=== PATIENT | male | born 1960 | race Caucasian/White ===

== ENCOUNTER → 2017-06-06 | Outpatient (CLI) | payer BC ==
[2017-06-06 10:19] LABS: ALT 35 U/L (21-72); AST 22 U/L (17-59); Alkaline Phosphatase 58 U/L (38-126); Anion Gap 9 mmol/L; Blood Urea Nitrogen 13 mg/dL (9-20); Calcium 10.4 mg/dL (8.4-10.2); Carbon Dioxide 25 mmol/L (22-30); Chloride 107 mmol/L (98-107); Glucose 87 mg/dL (74-99); Non-African American GFR(MDRD) >60 (>60 ml/min/1.73 sqM); Potassium 4.7 mmol/L (3.5-5.1); Sodium 141 mmol/L (137-145); Total Bilirubin 0.4 mg/dL (0.2-1.3); Total Protein 6.9 g/dL (6.3-8.2)
== END | disposition home or self-care (01) ==
LOC: LABWHC1 09:31
PROVIDERS: ATTEND Internal Medicine Endocrinology, Diabetes & Metabolism
DX: E21.0 Primary hyperparathyroidism (principal)
CPT/HCPCS: 36415; 80053; 82306; 83970

== ENCOUNTER → 2017-12-27 | Outpatient (CLI) | payer BC ==
[2017-12-27 11:26] LABS: ALT 24 U/L (21-72); AST 19 U/L (17-59); Albumin 4.5 g/dL (3.5-5.0); Alkaline Phosphatase 58 U/L (38-126); Anion Gap 13 mmol/L; Blood Urea Nitrogen 13 mg/dL (9-20); Calcium 10.6 mg/dL (8.4-10.2); Carbon Dioxide 26 mmol/L (22-30); Chloride 106 mmol/L (98-107); Glucose 109 mg/dL (74-99); Potassium 4.7 mmol/L (3.5-5.1); Sodium 145 mmol/L (137-145); Total Bilirubin 0.5 mg/dL (0.2-1.3); Total Protein 7.4 g/dL (6.3-8.2)
[2017-12-27 16:42] LABS: Vitamin D 25 Hydroxy 28.9 ng/mL (30.0-100.0)
[2017-12-27 18:16] LABS: Parathyroid Hormone Intact 120.1 pg/mL (14.0-72.0)
== END | disposition home or self-care (01) ==
LOC: LABWHC1 10:12
PROVIDERS: ATTEND Internal Medicine Endocrinology, Diabetes & Metabolism
DX: E21.0 Primary hyperparathyroidism (principal)
CPT/HCPCS: 36415; 80053; 82306; 83970

== ENCOUNTER → 2018-01-30 | Outpatient (CLI) | payer BC ==
--- NOTE | 2018-01-30 07:52 | BD ---
EXAMINATION TYPE: MG DEXA appendicular skeleton. DATE OF EXAM: 01/30/2018 COMPARISON: NONE CLINICAL HISTORY: Osteoporosis screening. Height: 5 FT 8 IN Weight: 196 FRAX RISK QUESTIONS: Alcohol (3 or more units per day): NO Family History (Parent hip fracture): NO Glucocorticoids (More than 3mos): NO (Ex: prednisone, prednisolone, methylprednisolone, dexamethasone, and hydrocortisone). History of Fracture in Adulthood: NO Secondary Osteoporosis: 1. Type 1 Diabetes: NO 2. Hyperthyroidism: NO 3. Menopause before 45: NA 4. Malnutrition: NO 5. Chronic liver disease: NO Rheumatoid Arthritis: NO Current Tobacco Use: NO RISK FACTORS HISTORY OF: Active: YES Lost more than 2 inches in height since high school: YES Hyperparathyroidism: YES MEDICATIONS: LOSARTIN, BUSPIRONE, CITALOPRAM, AMITRIPTYLINE, TEMAZEPAM, COUMDIN, LIPITOR, COLCHICINE Additional History: EXAM MEASUREMENTS: Bone mineral densitometry was performed using the [employer] System. Bone mineral density as measured about the Lumbar spine is: ----- L1-L4(G/cm2): 1.380 T Score Values are as follows: ----- L2: 1.7 ----- L3: 1.7 ----- L4: 1.5 ----- L1-L4: 1.7 BASELINE Bone mineral density about the R hip (g/cm2): 0.879 Bone mineral density about the L hip (g/cm2): 0.976 T Score values are as follows: -----R Neck: -1.1 -----L Neck: -0.4 -----R Total: 0.4 -----L Total: 0.4 BASELINE IMPRESSION: Osteopenia (T Score between -2.5 and -1) with regards to the right femoral neck. There is slightly increased risk of fracture and the patient may be considered for treatment. Re-Screen 2-5 years. NOTE: T-SCORE=SD OF THE YOUNG ADULT MEAN.
== END | disposition home or self-care (01) ==
LOC: RADBDWWP 07:08
PROVIDERS: ATTEND Surgery
DX: M85.851 Other specified disorders of bone density and structure, right thigh (principal); E21.0 Primary hyperparathyroidism
CPT/HCPCS: 77081

== ENCOUNTER → 2020-10-04 | Outpatient (CLI) | payer BC ==
--- NOTE | 2020-10-04 09:20 | US ---
EXAMINATION TYPE: US kidneys/renal and bladder DATE OF EXAM: 10/04/2020 COMPARISON: NONE CLINICAL HISTORY: R31.0 GROSS HEMATURIA. h/o renal stones, gross hematuria, no pain now EXAM MEASUREMENTS: Right Kidney: 9.7 x 5.1 x 5.6cm Left Kidney: 10.3 x 4.2 x 5.6cm Right Kidney: multiple shadowing stones seen, largest was 1.2cm within mid and inferior pole Left Kidney: multiple shadowing stones seen, largest = 1.0cm lower pole Bladder: not distended IMPRESSION: 1. Bilateral nonobstructing renal stones
== END | disposition home or self-care (01) ==
LOC: RADUSWWP 08:51
PROVIDERS: ATTEND Internal Medicine
DX: N20.0 Calculus of kidney (principal)
CPT/HCPCS: 76770

== ENCOUNTER → 2020-11-02 | Outpatient (CLI) | payer BC ==
--- NOTE | 2020-11-02 08:56 | CT ---
EXAMINATION TYPE: CT abdomen pelvis wo con DATE OF EXAM: 11/02/2020 HISTORY: Renal stones CT DLP: 906 mGycm. Automated Exposure Control for Dose Reduction was Utilized. TECHNIQUE: CT scan of the abdomen and pelvis is performed without oral or IV contrast. COMPARISON: CT abdomen and pelvis November 01, 2010. FINDINGS: Within the limitations of a non-contrast study, the following observations are made. LUNG BASES: There is 2-3 mm right basilar nodule axial image 7. LIVER/GB: No significant abnormality is appreciated. PANCREAS: No significant abnormality is seen. SPLEEN: No significant abnormality is seen. ADRENALS: No significant abnormality is seen. KIDNEYS: Bilateral small renal calculi are present, at least 10-20 scattered calculi of varying sizes and shapes throughout both kidneys redemonstrated. No hydronephrosis or obstructing ureteral calculi bilaterally BOWEL: Normal-appearing appendix from cecum. No suspicious small or large bowel dilatation. GENITAL ORGANS: Central calcifications in normal sized prostate. LYMPH NODES: No greater than 1cm abdominal or pelvic lymph nodes are appreciated. OSSEOUS STRUCTURES: Moderate narrowing and spurring in both hips. Grade 1 retrolisthesis L1 on L2 and L2 on L3. OTHER: Mild calcified plaque aorta extends into branch vessels. IMPRESSION: Persistent bilateral nonobstructing renal calculi. No hydronephrosis or obstructing urete ral calculi bilaterally on current study.
== END | disposition home or self-care (01) ==
LOC: RADCTMAIN 07:47
PROVIDERS: ATTEND Urology
DX: N20.0 Calculus of kidney (principal)
CPT/HCPCS: 74176

== ENCOUNTER → 2022-10-31 | Outpatient (CLI) | payer BC ==
--- NOTE | 2022-10-31 10:46 | XR ---
EXAMINATION TYPE: XR KUB DATE OF EXAM: 10/31/2022 COMPARISON: Abdominal radiograph 07/06/2012, CT abdomen and pelvis 11/02/2020 HISTORY: Calculus of kidney TECHNIQUE: Supine view of the abdomen was obtained with 2 radiographs. FINDINGS: Small bowel demonstrates no evidence for dilatation or air fluid levels. Gas and fecal material is seen in non-distended colon. No convincing evidence for pneumoperitoneum. Bilateral renal calculi identified with approximately 5-8 within each kidney. The largest on the left measures up to 9 mm and the largest on the right measures up to 7 mm. No definitive ureteral calculi . No pelvic calcifications. The lung bases are clear. The osseous structures are intact. IMPRESSION: Bilateral renal calculi.
== END | disposition home or self-care (01) ==
LOC: RADXRMAIN 10:15
PROVIDERS: ATTEND Urology
DX: N20.0 Calculus of kidney (principal)
CPT/HCPCS: 74018

== ENCOUNTER 2023-08-30 08:57 | Emergency (ER) | payer BC ==
[2023-08-30 09:43] VITALS: RESP 20; TEMP 97.4
--- NOTE | 2023-08-30 11:37 | ED ---
General Adult HPI - General Source: patient Mode of arrival: ambulatory Limitations: no limitations <Stephen Villaseñor - Last Filed: 08/30/23 11:36> <eJan Young - Last Filed: 08/30/23 15:25> - General Chief complaint: Psychiatric Symptoms Stated complaint: Mental Health Time Seen by Provider: 08/30/23 11:17 - History of Present Illness Initial comments: Dictation was produced using [employer] dictation software. please excuse any grammatical, word or spelling errors. Chief Complaint: 63-year-old male presents with anxiety depression History of Present Illness: [id number] male for the last several weeks she's been dealing with feelings of not going on like this. Denies any suicidal plan. Significant the bedside was concerned because he made a statement that sounded depressing. He did not make a suicidal comment. She said that he does not want go on like this anymore. She brought patient to the ER for suicidal ideation. Patient has any suicidal plan. Denies any homicidal ideation. No visual auditory hallucinations. He has been seeing psychiatrists and therapist outp atient. Patient has no acute medical complaints The ROS documented in this emergency department record has been reviewed and confirmed by me. Those systems with pertinent positive or negative responses have been documented in the HPI. All other systems are other negative and/or noncontributory. (Stephen Villaseñor) - Related Data Home Medications Medication Instructions Recorded Confirmed Atorvastatin [Lipitor] 20 mg PO DAILY 12/10/14 12/13/14 Citalopram Hydrobromide [CeleXA] 20 mg PO 1800 12/10/14 12/13/14 Losartan [Cozaar] 50 mg PO QAM 12/10/14 12/13/14 Temazepam [Restoril] 30 mg PO HS 12/10/14 12/13/14 Warfarin [Coumadin] 10 mg PO DAILY 12/10/14 12/13/14 busPIRone HCl [Buspar] 15 mg PO BID 12/10/14 12/13/14 Previous Rx's Medication Instructions Recorded LORazepam [Ativan] 1 mg PO BID 3 Days #6 tab 08/30/23 Allergies Allergy/AdvReac Type Severity Reaction Status Date / Time No Known Allergies Allergy Verified 08/30/23 09:21 Review of Systems ROS Other: All systems not noted in ROS Statement are negative. <Stephen Villaseñor - Last Filed: 08/30/23 11:36> ROS Other: All systems not noted in ROS Statement are negative. <Jean Young Toni - Last Filed: 08/30/23 15:25> ROS Statement: Those systems with pertinent positive or pertinent negative responses have been documented in the HPI. Past Medical History Past Medical History: Deep Vein Thrombosis (DVT), Hypertension, Pulmonary Embolus (PE) Additional Past Medical History / Comment(s): dvt rt thigh & PE x 2-2012, kidney stones,current abd pain and diarrhea History of Any Multi-Drug Resistant Organisms: None Reported Past Surgical History: Hernia Repair Additional Past Surgical History / Comment(s): varicose vein stripping,double hernia repair Aug 2014 Past Anesthesia/Blood Transfusion Reactions: No Reported Reaction Past Psychological History: Anxiety Smoking Status: Never smoker Past Alcohol Use History: Occasional Past Drug Use History: None Reported - Past Family History Father Family Medical History: Cancer, Deep Vein Thrombosis (DVT) Additional Family Medical History / Comment(s): prostate Mother Family Medical History: Cancer Additional Family Medical History / Comment(s): breast Sister(s) Family Medical History: Cancer Additional Family Medical History / Comment(s): breast <Stephen Villaseñor - Last Filed: 08/30/23 11:36> General Exam Limitations: no limitations <Stephen Villaseñor - Last Filed: 08/30/23 11:36> - General Exam Comments Initial Comments: PHYSICAL EXAM: General Impression: Alert and oriented x3, not in acute distress HEENT: Normocephalic atraumatic, extra-ocular movements intact, pupils equal and reactive to light bilaterally, mucous membranes moist. Cardiovascular: Heart regular rate and rhythm Chest: Able to complete full sentences, no retractions, no tachypnea Abdomen: abdomen soft, non-tender, non-distended, no organomegaly Musculoskeletal: Pulses present and equal in all extremities, no peripheral edema Motor: no focal deficits noted Neurological: CN II-XII grossly intact, no focal motor or sensory deficits noted Skin: Intact with no visualized rashes Psych: Normal affect and mood (Stephen Villaseñor) Course Vital Signs 08/30/23 09:15 Temperature 97.4 F L Pulse Rate 110 H Respiratory 20 Rate Blood Pressure 146/105 O2 Sat by Pulse 98 Oximetry Medical Decision Making <CharleenStephen D - Last Filed: 08/30/23 11:36> <Jean Young Toni - Last Filed: 08/30/23 15:25> - Medical Decision Making Was pt. sent in by a medical professional or institution (, PA, [employer], urgent care, hospital, or fdc...) When possible be specific @ -No Did you speak to anyone other than the patient for history (EMS, parent, family, police, friend...)? What history was obtained from this source @ -No Did you review nursing and triage notes (agree or disagree)? Why? @ -I reviewed and agree with nursing and triage notes Were old charts reviewed (outside hosp., previous admission, EMS record, old EKG, old radiological studies, urgent care reports/EKG's, fdc records)? Report findings @ -No old charts were reviewed Differential Diagnosis (chest pain, altered mental status, abdominal pain women, abdominal pain men, vaginal bleeding, musculoskeletal, weakness, fever, dyspnea, syncope, headache, dizziness, GI bleed, back pain, seizure, CVA, palpatations, mental health)? @ -Differential Mental Health: Depression, anxiety, bipolar, psychosis, schizophrenia, borderline personality, situational depression, adjustment disorder, behavioral disorder, brain tumor, malingering, substance abuse, encephalopathy, medication reaction, dementia, hypothyroidism, degenerative neurologic disorder, lupus.... This is not meant to be all-inclusive list EKG interpreted by me (3pts min.). @ -None done X-rays interpreted by me (1pt min.). @ -None done CT interpreted by me (1pt min.). @ -None done U/S interpreted by me (1pt. min.). @ -None done What testing was considered but not performed or refused? (CT, X-rays, U/S, labs)? Why? @ -None What meds were considered but not given or refused? Why? @ -None Did you discuss the management of the patient with other professionals (professionals i.e. , PA, [employer], lab, RT, psych nurse, 7th grade social studies teacher, research contracts supervisor, teacher, welfare officer, behavioral health case manager)? Give summary @ -No Was smoking cessation discussed for >3mins.? @ -No Was critical care preformed (if so, how long)? @ -No Were there social determinants of health that impacted care today? How? (Homelessness, low income, unemployed, alcoholism, drug addiction, transportation, low edu. Level, literacy, decrease access to med. care, alf, rehab)? @ -No Was there de-escalation of care discussed even if they declined (Discuss DNR or withdrawal of care, Hospice)? DNR status @ -No What co-morbidities impacted this encounter? (DM, HTN, Smoking, COPD, CAD, Cancer, CVA, ARF, Chemo, Hep., AIDS, mental health diagnosis, sleep apnea, morbid obesity)? @ -None Was patient admitted / discharged? Hospital course, mention meds given and route, prescriptions, significant lab abnormalities, going to OR and other pertinent info. @ -63-year-old male presents emergency department for mental health evaluation. Vital signs stable. Patient is well-appearing at bedside. No physical complaints. Patient medically cleared for EPS evaluation. Undiagnosed new problem with uncertain prognosis? @ -No Drug Therapy requiring intensive monitoring for toxicity (Heparin, Nitro, Insulin, Cardizem)? @ -No Were any procedures done? @ -No Diagnosis/symptom? Acute, or Chronic, or Acute on Chronic? Uncomplicated (without systemic symptoms) or Complicated (systemic symptoms)? @ -Depression Side effects of treatment? @ -No Exacerbation, Progression, or Severe Exacerbation? @ -No Poses a threat to life or bodily function? How? (Chest pain, [place], [place], pneumonia, PE, COPD, DKA, ARF, appy, cholecystitis, CVA, Diverticulitis, Homicidal, Suicidal, threat to staff... and all critical care pts) @ -yes (Stephen Villaseñor) Patient had been medically cleared and was evaluated by EPS. [place] to be safe for discharge with diagnosis of anxiety and panic attack. He has good outpatient follow-up and has signed a safety plan. (Jean Young) Disposition <Stephen Villaseñor - Last Filed: 08/30/23 11:36> Is patient prescribed a controlled substance at d/c from ED?: No Time of Disposition: 15:25 <Jean Young - Last Filed: 08/30/23 15:25> Clinical Impression: Acute anxiety Disposition: HOME SELF-CARE Condition: Fair Instructions (If sedation given, give patient instructions): Anxiety (ED) Additional Instructions: Please follow up with community mental health. Prescriptions: LORazepam [Ativan] 1 mg PO BID 3 Days #6 tab Referrals: River Richardson MD [Primary Care Provider] - 1-2 days
[2023-08-30 16:11] VITALS: BP 160/114; PULSE 104
== END 2023-08-30 15:51 | disposition home or self-care (01) ==
LOC: EC 08:57
DX: F41.9 Anxiety disorder, unspecified (principal); I10 Essential (primary) hypertension; Z79.899 Other long term (current) drug therapy; Z86.711 Personal history of pulmonary embolism; Z79.01 Long term (current) use of anticoagulants
CPT/HCPCS: 82075; 99285

== ENCOUNTER 2023-10-11 15:33 | Emergency (ER) | payer BC ==
--- NOTE | 2023-10-11 16:22 | ED ---
General Adult HPI - General Source: patient, RN notes reviewed <Maureen Baltazar - Last Filed: 10/11/23 16:18> - General Source: patient, RN notes reviewed, old records reviewed <Alexis Horne - Last Filed: 10/11/23 22:51> <Joel Church - Last Filed: 10/12/23 12:48> <Jean Sifuentes - Last Filed: 10/12/23 22:15> - General Stated complaint: Suicidal Time Seen by Provider: 10/11/23 16:19 - History of Present Illness Initial comments: 63 year old male presents to the emergency department for evaluation of suicidal ideation for the past 3-4 days. Patient does have a history of mental health issues and is currently taking his medication. He states that he has had overwhelming feelings of wanting to hurt others and himself over the past few days with no plan. (Maureen Baltazar) Patient is a 63-year-old male who presents emergency department for psychiatric evaluation. Is complaining of increased anxiety, suicidal ideations. Has a nonspecific plan of overdose. No history of attempts. Occasional thoughts about hurting others. Denies any hallucinations. 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 No other acute complaint at this time. Presents for further evaluation at this time. Patient originally evaluated quickly no. I evaluated the patient when he was placed in a room. (Alexis Horne) - Related Data Home Medications Medication Instructions Recorded Confirmed Losartan [Cozaar] 50 mg PO BID 12/10/14 10/11/23 busPIRone HCl [Buspar] 15 mg PO BID 12/10/14 10/11/23 Acetaminophen Tab [Tylenol] 650 mg PO Q4-6H PRN 10/11/23 10/11/23 Cephalexin [Keflex] 500 mg PO QID 10/11/23 10/11/23 DULoxetine HCL [Cymbalta] 60 mg PO DAILY 10/11/23 10/11/23 LORazepam 0.5 mg PO DAILY PRN 10/11/23 10/11/23 Pravastatin Sodium [Pravachol] 80 mg PO DAILY 10/11/23 10/11/23 Warfarin [Coumadin] 5 mg PO SUMOTUTHSA@1800 10/11/23 10/11/23 Warfarin [Coumadin] 10 mg PO WEFR@1800 10/11/23 10/11/23 traZODone HCL [Desyrel] 100 mg PO HS 10/11/23 10/11/23 Allergies Allergy/AdvReac Type Severity Reaction Status Date / Time No Known Allergies Allergy Verified 10/11/23 22:15 Review of Systems ROS Other: All systems not noted in ROS Statement are negative. <Maureen Baltazar - Last Filed: 10/11/23 16:18> ROS Other: All systems not noted in ROS Statement are negative. <Alexis Horne - Last Filed: 10/11/23 22:51> ROS Other: All systems not noted in ROS Statement are negative. <Joel Church - Last Filed: 10/12/23 12:48> ROS Other: All systems not noted in ROS Statement are negative. <Jean Sifuentes - Last Filed: 10/12/23 22:15> ROS Statement: Those systems with pertinent positive or pertinent negative responses have been documented in the HPI. Review of Systems: CONST: Denies fever EYES: Denies blurry vision ENT: Denies nasal congestion C/V: Denies Chest pain RESP: Denies shortness of breath GI: Denies abdominal pain : Denies dysuria SKIN: Denies rash. MSK: Denies joint pain. NEURO: Denies headache PSYCH: Endorses suicidal and homicidal ideations. Denies plans or attempts. Denies hallucinations. (Alexis Horne) Past Medical History Past Medical History: Deep Vein Thrombosis (DVT), Hypertension, Pulmonary Embolus (PE) Additional Past Medical History / Comment(s): dvt rt thigh & PE x 2-2012, kidney stones,current abd pain and diarrhea History of Any Multi-Drug Resistant Organisms: None Reported Past Surgical History: Hernia Repair Additional Past Surgical History / Comment(s): varicose vein stripping,double hernia repair Aug 2014 Past Anesthesia/Blood Transfusion Reactions: No Reported Reaction Past Psychological History: Anxiety Smoking Status: Never smoker Past Alcohol Use History: Occasional Past Drug Use History: None Reported - Past Family History Father Family Medical History: Cancer, Deep Vein Thrombosis (DVT) Additional Family Medical History / Comment(s): prostate Mother Family Medical History: Cancer Additional Family Medical History / Comment(s): breast Sister(s) Family Medical History: Cancer Additional Family Medical History / Comment(s): breast <Maureen Baltazar - Last Filed: 10/11/23 16:18> General Exam <Maureen Baltazar - Last Filed: 10/11/23 16:18> <Alexis Horne - Last Filed: 10/11/23 22:51> - General Exam Comments Initial Comments: Visual Physical Exam Vital signs reviewed General: Well-appearing, nontoxic, no acute distress. Head: Normocephalic, atraumatic Eyes: PERRLA, EOMI ENT: Airway patent Chest: Nonlabored breathing Skin: No visual rash, normal skin tone Neuro: Alert and oriented 3 Musculoskeletal: No gross abnormalities (Maureen Baltazar) General: Appears in no acute distress. HEAD: Normal with no signs of head trauma. EYES: PERRLA, EOMI, conjunctiva normal, no discharge. ENT: Hearing grossly intact, normal oropharynx. RESPIRATORY: Clear breath sounds bilaterally. No wheezes, rales, or rhonchi. C/V: Regular rate and rhythm. S1 and S2 auscultated, peripheral pulses 2+ and intact throughout ABD: Abd is soft, nontender, nondistended EXT: Normal range of motion, no obvious deformity SKIN: No rashes or lesions observed on exposed skin. NEURO: Alert and oriented 4. (Alexis Horne) Course <Jean Sifuentes - Last Filed: 10/12/23 22:15> Vital Signs 10/11/23 10/12/23 10/12/23 16:39 10:35 18:22 Temperature 97.7 F 97.8 F Pulse Rate 107 H 99 95 Respiratory 18 18 18 Rate Blood Pressure 191/120 163/88 137/94 O2 Sat by Pulse 96 95 98 Oximetry 10/12/23 20:23 Temperature Pulse Rate Respiratory Rate Blood Pressure 170/131 O2 Sat by Pulse Oximetry - Reevaluation(s) Reevaluation #1: 10/12/23 20:27 At the time of transfer to EMS for his transfer to [facility] for inpatient treatment for depression and suicidal ideation the patient was noted have a markedly elevated blood pressure per paramedics. Point 80/120 daily complain of a frontal headache that he's got a chronic history of headaches and upon reexamination by me states is 3/10 in severity he's gotten Tylenol for twice so far since his stay here. He is on losartan for blood pressure control his p.m. dose of 50 mg is doing 9 PM tonight. Patient denies any other symptoms at this time no blurry vision no nausea no vomiting shortness of breath chest pain numbness tingling to his extremities no loss of function. The blood pressure obtained by EMS personnel of 180/120 was a manual blood pressure. Examination patient is awake alert oriented 4 HEENT exam and normocephalic atraumatic PERRL EOMI Clear Oropharynx Is Clear with Moist Mucosa. Neck supple no stridor or bruits chest lungs clear to auscultation heart regular with no murmurs abdomen soft nontender no guarding rebound masses or bruits extremities bilaterally present and symmetric normal neurovascular examination. At this time the plan is to give the patient is p.m. dose of losartan 50 mg oral hydration and reassess. (Jean Sifuentes) Reevaluation #2: 10/12/23 22:14 Patient still demonstrated elevated blood pressure that was higher than acceptable for transfer to patient at this time will be held overnight and transferred in the a.m. to [facility] for inpatient treatment of depression and suicidal ideation. (Jean Sifuentes) Medical Decision Making <Maureen Baltazar - Last Filed: 10/11/23 16:18> - Lab Data Result diagrams: 10/11/23 22:06 10/11/23 22:06 - EKG Data -: EKG Interpreted by Me <Alexis Horne - Last Filed: 10/11/23 22:51> - Lab Data Result diagrams: 10/11/23 22:06 10/11/23 22:06 <Joel Church - Last Filed: 10/12/23 12:48> - Lab Data Result diagrams: 10/11/23 22:06 10/11/23 22:06 <Jean Sifuentes - Last Filed: 10/12/23 22:15> - Medical Decision Making Quick note preformed by Maureen Baltazar PA-C (Maureen Baltazar) Was pt. sent in by a medical professional or institution (DARIEL Sierra, [employer], urgent care, hospital, or jail...) When possible be specific @ -No Did you speak to anyone other than the patient for history (EMS, parent, family, police, friend...)? What history was obtained from this source @ -No Did you review nursing and triage notes (agree or disagree)? Why? @ -I reviewed and agree with nursing and triage notes Were old charts reviewed (outside hosp., previous admission, EMS record, old EKG, old radiological studies, urgent care reports/EKG's, jail records)? Report findings @ -Old charts reviewed Differential Diagnosis (chest pain, altered mental status, abdominal pain women, abdominal pain men, vaginal bleeding, weakness, fever, dyspnea, syncope, headache, dizziness, GI bleed, back pain, seizure, CVA, palpatations, mental health, musculoskeletal)? @ -Differential Mental Health Depression, anxiety, bipolar, psychosis, schizophrenia, borderline personality, situational depression, adjustment disorder, behavioral disorder, brain tumor, malingering, substance abuse, encephalopathy, medication reaction, dementia, hypothyroidism, degenerative neurologic disorder, lupus.... This is not meant to be all-inclusive list EKG interpreted by me (3pts min.). @ -As above X-rays interpreted by me (1pt min.). @ -None done CT interpreted by me (1pt min.). @ -None done U/S interpreted by me (1pt. min.). @ -None done What testing was considered but not performed or refused? (CT, X-rays, U/S, labs)? Why? @ -None What meds were considered but not given or refused? Why? @ -None Did you discuss the management of the patient with other professionals (rocio reece i.e. , PA, [employer], lab, RT, psych nurse, health care social worker, nurse college, teacher, aviation ordnance officer, manager of case)? Give summary @ -EPS notified consult. Was smoking cessation discussed for >3mins.? @ -No Was critical care preformed (if so, how long)? @ -No Were there social determinants of health that impacted care today? How? (Homelessness, low income, unemployed, alcoholism, drug addiction, transportation, low edu. Level, literacy, decrease access to med. care, penitentiary, rehab)? @ -No Was there de-escalation of care discussed even if they declined (Discuss DNR or withdrawal of care, Hospice)? DNR status @ -No What co-morbidities impacted this encounter? (DM, HTN, Smoking, COPD, CAD, Cancer, CVA, ARF, Chemo, Hep., AIDS, mental health diagnosis, sleep apnea, morbid obesity)? @ -None Was patient admitted / discharged? Hospital course, mention meds given and route, prescriptions, significant lab abnormalities, going to OR and other pertinent info. @ -Based on the patient's presentation and physical exam, I do believe. Her psychiatric evaluation. He was placed in green scrubs. Sitter was ordered. Suicide precautions ordered. BAT is 0. UDS is negative. I did recommend we obtain basic labs as he is older and is on Coumadin he was in agreement. Vital signs within except for limits. Screening EKG shows no signs of acute ischemia. Labs remarkable for subtherapeutic INR of 1.4 and pharmacy was consulted to manage his Coumadin. At this time patient is medically cleared for evaluation by psychiatry. I updated the patient. He was in agreement this plan. EPS notified by us for evaluation. Disposition pending psychiatric evaluation. Undiagnosed new problem with uncertain prognosis? @ -No Drug Therapy requiring intensive monitoring for toxicity (Heparin, Nitro, Insulin, Cardizem)? @ -No Were any procedures done? @ -No Diagnosis/symptom? @ -Subtherapeutic INR Acute, or Chronic, or Acute on Chronic? @ -Acute Uncomplicated (without systemic symptoms) or Complicated (systemic symptoms)? @ -uncomplicated Side effects of treatment? @ -No Exacerbation, Progression, or Severe Exacerbation? @ -No Poses a threat to life or bodily function? How? (Chest pain, [place], [place], pneumonia, PE, COPD, DKA, ARF, appy, cholecystitis, CVA, Diverticulitis, Homicidal, Suicidal, threat to staff... and all critical care pts) @ -Unlikely Diagnosis/symptom? @ -Encounter for psychiatric evaluation Acute, or Chronic, or Acute on Chronic? @ -Acute Uncomplicated (without systemic symptoms) or Complicated (systemic symptoms)? @ -Uncomplicated Side effects of treatment? @ -none Exacerbation, Progression, or Severe Exacerbation] @ -no Poses a threat to life or bodily function? @ -Possibly (Alexis Horne) I reevaluated the patient after the patient was signed out to me by Dr. Diaz at 7 AM. Patient was still depressed and had suicidal thoughts at this point in time EPS evaluated the patient and determined the patient needed to be admitted. I filled out a clinical certification and patient will be transferred to a [facility] facility. (Joel Church) - Lab Data Lab Results 10/11/23 10/11/23 10/11/23 Range/Units 16:45 22:06 22:06 WBC 5.8 (3.8-10.6) k/uL RBC 4.12 L (4.30-5.90) m/uL Hgb 13.7 (13.0-17.5) gm/dL Hct 39.2 (39.0-53.0) % MCV 95.3 (80.0-100.0) fL MCH 33.2 (25.0-35.0) pg MCHC 34.8 (31.0-37.0) g/dL RDW 12.9 (11.5-15.5) % Plt Count 230 (150-450) k/uL MPV 7.6 Neutrophils % 71 % Lymphocytes % 20 % Monocytes % 6 % Eosinophils % 1 % Basophils % 1 % Neutrophils # 4.1 (1.3-7.7) k/uL Lymphocytes # 1.1 (1.0-4.8) k/uL Monocytes # 0.3 (0-1.0) k/uL Eosinophils # 0.1 (0-0.7) k/uL Basophils # 0.0 (0-0.2) k/uL PT 14.8 H (10.0-12.5) sec INR 1.4 H (<1.2) Sodium (137-145) mmol/L Potassium (3.5-5.1) mmol/L Chloride (98-107) mmol/L Carbon Dioxide (22-30) mmol/L Anion Gap mmol/L BUN (9-20) mg/dL Creatinine (0.66-1.25) mg/dL Est GFR (CKD-EPI)AfAm (>60 ml/min/1.73 sqM) Est GFR (CKD-EPI)NonAf (>60 ml/min/1.73 sqM) Glucose (74-99) mg/dL Calcium (8.4-10.2) mg/dL Total Bilirubin (0.2-1.3) mg/dL AST (17-59) U/L ALT (4-49) U/L Alkaline Phosphatase (38-126) U/L Total Protein (6.3-8.2) g/dL Albumin (3.5-5.0) g/dL Urine Opiates Screen Not Detected (NotDetected) Ur Oxycodone Screen Not Detected (NotDetected) Urine Methadone Screen Not Detected (NotDetected) Ur Barbiturates Screen Not Detected (NotDetected) U Tricyclic Antidepress Not Detected (NotDetected) Ur Phencyclidine Scrn Not Detected (NotDetected) Ur Amphetamines Screen Not Detected (NotDetected) U Methamphetamines Scrn Not Detected (NotDetected) U Benzodiazepines Scrn Not Detected (NotDetected) Urine Cocaine Screen Not Detected (NotDetected) U Marijuana (THC) Screen Not Detected (NotDetected) SARS-CoV-2 (PCR) (Not Detectd) 10/11/23 10/12/23 10/12/23 Range/Units 22:06 11:53 13:00 WBC (3.8-10.6) k/uL RBC (4.30-5.90) m/uL Hgb (13.0-17.5) gm/dL Hct (39.0-53.0) % MCV (80.0-100.0) fL MCH (25.0-35.0) pg MCHC (31.0-37.0) g/dL RDW (11.5-15.5) % Plt Count (150-450) k/uL MPV Neutrophils % % Lymphocytes % % Monocytes % % Eosinophils % % Basophils % % Neutrophils # (1.3-7.7) k/uL Lymphocytes # (1.0-4.8) k/uL Monocytes # (0-1.0) k/uL Eosinophils # (0-0.7) k/uL Basophils # (0-0.2) k/uL PT 14.5 H (10.0-12.5) sec INR 1.4 H (<1.2) Sodium 138 (137-145) mmol/L Potassium 3.9 (3.5-5.1) mmol/L Chloride 105 (98-107) mmol/L Carbon Dioxide 20 L (22-30) mmol/L Anion Gap 13 mmol/L BUN 13 (9-20) mg/dL Creatinine 0.92 (0.66-1.25) mg/dL Est GFR (CKD-EPI)AfAm >90 (>60 ml/min/1.73 sqM) Est GFR (CKD-EPI)NonAf 90 (>60 ml/min/1.73 sqM) Glucose 96 (74-99) mg/dL Calcium 9.1 (8.4-10.2) mg/dL Total Bilirubin 0.8 (0.2-1.3) mg/dL AST 24 (17-59) U/L ALT 16 (4-49) U/L Alkaline Phosphatase 55 (38-126) U/L Total Protein 7.3 (6.3-8.2) g/dL Albumin 4.7 (3.5-5.0) g/dL Urine Opiates Screen (NotDetected) Ur Oxycodone Screen (NotDetected) Urine Methadone Screen (NotDetected) Ur Barbiturates Screen (NotDetected) U Tricyclic Antidepress (NotDetected) Ur Phencyclidine Scrn (NotDetected) Ur Amphetamines Screen (NotDetected) U Methamphetamines Scrn (NotDetected) U Benzodiazepines Scrn (NotDetected) Urine Cocaine Screen (NotDetected) U Marijuana (THC) Screen (NotDetected) SARS-CoV-2 (PCR) Not Detected (Not Detectd) - EKG Data EKG Comments: 12-lead Electrocardiogram Interpretation Note EKG was reviewed and interpreted by myself. 12-lead ECG performed at 2206 is interpreted by me as revealing normal sinus rhythm at a rate of 98 beats per m inute. [place] is normal. [place] interval is 150 ms, QRS duration is 85 ms, QTc is 398 ms.. There were no ST or T wave abnormalities to suggest myocardial ischemia or injury. R wave progression across the precordium was satisfactory. By my interpretation this EKG is non-diagnostic for acute ischemia. (Alexis Horne) Disposition <Maureen Baltazar - Last Filed: 10/11/23 16:18> <Alexis Horne - Last Filed: 10/11/23 22:51> Time of Disposition: 12:49 <Joel Church - Last Filed: 10/12/23 12:48> <Jean Sifuentes - Last Filed: 10/12/23 22:15> Clinical Impression: Subtherapeutic international normalized ratio (INR), Encounter for psychiatric assessment, Depression, Suicidal ideation Referrals: Grover Gomez MD [Primary Care Provider] - 1-2 days
[2023-10-11 17:04] VITALS: RESP 18
[2023-10-11 17:30] LABS: Amphetamine Screen,Urine Not Detected (NotDetected); Barbiturate Screen,Urine Not Detected (NotDetected); Benzodiazepines Screen,Urine Not Detected (NotDetected); Cocaine Screen,Urine Not Detected (NotDetected); Methadone Screen, Urine Not Detected (NotDetected); Opiate Screen,Urine Not Detected (NotDetected); Oxycodone Screen, Urine Not Detected (NotDetected); Phencyclidine Screen,Urine Not Detected (NotDetected); Tricyclic Antidepressant,Urine Not Detected (NotDetected); Urn Cannabinoid Scrn Not Detected (NotDetected)
[2023-10-11] MEDS ORDERED: LORazepam 0.5 MG TAB PO STA (21:53)
[2023-10-11 22:19] LABS: Basophils % (A) 1 %; Eosinophils # (A) 0.1 k/uL (0-0.7); Eosinophils % (A) 1 %; HCT 39.2 % (39.0-53.0); HGB 13.7 gm/dL (13.0-17.5); Lymphocytes # (A) 1.1 k/uL (1.0-4.8); Lymphocytes % (A) 20 %; MCH 33.2 pg (25.0-35.0); MCHC 34.8 g/dL (31.0-37.0); MCV 95.3 fL (80.0-100.0); Mean Platelet Volume 7.6; Monocytes # (A) 0.3 k/uL (0-1.0); Monocytes % (A) 6 %; Neutrophils # (A) 4.1 k/uL (1.3-7.7); Neutrophils % (A) 71 %; Platelet Count 230 k/uL (150-450); RBC 4.12 m/uL (4.30-5.90); RDW 12.9 % (11.5-15.5); WBC 5.8 k/uL (3.8-10.6)
[2023-10-11 22:31] LABS: ALT 16 U/L (4-49); AST 24 U/L (17-59); African American GFR (CKD) >90 (>60 ml/min/1.73 sqM); Albumin 4.7 g/dL (3.5-5.0); Alkaline Phosphatase 55 U/L (38-126); Anion Gap 13 mmol/L; Blood Urea Nitrogen 13 mg/dL (9-20); Calcium 9.1 mg/dL (8.4-10.2); Carbon Dioxide 20 mmol/L (22-30); Chloride 105 mmol/L (98-107); Glucose 96 mg/dL (74-99); Non-African American GFR(CKD) 90 (>60 ml/min/1.73 sqM); Potassium 3.9 mmol/L (3.5-5.1); Sodium 138 mmol/L (137-145); Total Bilirubin 0.8 mg/dL (0.2-1.3); Total Protein 7.3 g/dL (6.3-8.2)
[2023-10-11 22:34] LABS: INR 1.4 (<1.2); Prothrombin Time 14.8 sec (10.0-12.5)
[2023-10-11] MEDS ORDERED: WARFARIN 10 MG TAB PO ONE (23:15)
[2023-10-12] MEDS: busPIRone HCl 10 MG TAB PO SCH ×3 (00:57→20:19)
[2023-10-12] MEDS: LOSARTAN 50 MG TAB PO SCH ×3 (00:57→20:19)
[2023-10-12] MEDS ORDERED: traZODone HCL 50 MG TAB PO ONE (04:31)
[2023-10-12] MEDS ORDERED: diazePAM 5 MG TAB PO STA (04:31)
[2023-10-12] MEDS: DULoxetine HCL 60 MG CAPSULE.DR PO SCH (09:54)
[2023-10-12] MEDS: ACETAMINOPHEN TAB 325 MG TAB PO PRN ×2 (09:55→17:58)
[2023-10-12] MEDS: LORazepam 0.5 MG TAB PO PRN ×2 (10:53→20:21)
[2023-10-12] MEDS: PRAVASTATIN SODIUM 80 MG TAB PO SCH (11:17)
[2023-10-12 12:18] LABS: INR 1.4 (<1.2); Prothrombin Time 14.5 sec (10.0-12.5)
[2023-10-12] MEDS ORDERED: WARFARIN 10 MG TAB PO ONE (18:00)
[2023-10-12] MEDS ORDERED: traZODone HCL 100 MG TAB PO SCH (21:00)
[2023-10-12] MEDS ORDERED: cloNIDine HCL 0.1 MG TAB PO STA (21:22)
[2023-10-13] MEDS: busPIRone HCl 10 MG TAB PO SCH (08:46)
[2023-10-13] MEDS: LOSARTAN 50 MG TAB PO SCH (08:46)
[2023-10-13] MEDS: DULoxetine HCL 60 MG CAPSULE.DR PO SCH (08:46)
[2023-10-13] MEDS: LORazepam 0.5 MG TAB PO PRN (08:49)
[2023-10-13] MEDS: ACETAMINOPHEN TAB 325 MG TAB PO PRN (08:49)
[2023-10-13 09:04] VITALS: TEMP 97.6
[2023-10-13] MEDS: PRAVASTATIN SODIUM 80 MG TAB PO SCH (09:30)
[2023-10-13 09:49] VITALS: BP 142/90; PULSE 94
== END 2023-10-13 10:23 ==
LOC: EC 15:33
DX: Z00.8 Encounter for other general examination (principal); R79.1 Abnormal coagulation profile; F32.A Depression, unspecified; R45.851 Suicidal ideations; I10 Essential (primary) hypertension; F41.9 Anxiety disorder, unspecified; Z20.822 Contact with and (suspected) exposure to COVID-19
CPT/HCPCS: 36415; 80053; 80306; 82075; 85025; 85610; 87635; 93005; 99285

== ENCOUNTER 2024-01-22 08:04 | Emergency (ER) | payer BC ==
[2024-01-22 08:23] VITALS: RESP 18
--- NOTE | 2024-01-22 09:00 | ED ---
Anxiety HPI - General Chief Complaint: Anxiety Stated Complaint: anxiety,headache Time Seen by Provider: 01/22/24 08:15 Source: patient Mode of arrival: ambulatory - History of Present Illness Initial Comments: 63-year-old male with a history of generalized anxiety disorder presenting with anxiety worsening over the past 4 days. He is also complaining of intermittent chest pain and headache. Describes the pain as a dull sensation in the center of his chest. He is not currently having the pain. States he regularly sees a psychiatrist who recently changed some of his maintenance medications. Denies fever, URI symptoms, hallucinations, suicidal ideations. - Related Data Home Medications: Home Medications Medication Instructions Recorded Confirmed Losartan [Cozaar] 50 mg PO BID 12/10/14 10/11/23 Acetaminophen Tab [Tylenol] 650 mg PO Q4-6H PRN 10/11/23 10/11/23 DULoxetine HCL [Cymbalta] 60 mg PO DAILY 10/11/23 10/11/23 LORazepam 0.5 mg PO DAILY PRN 10/11/23 10/11/23 Pravastatin Sodium [Pravachol] 80 mg PO DAILY 10/11/23 10/11/23 Warfarin [Coumadin] 5 mg PO SUMOTUTHSA@1800 10/11/23 10/11/23 Warfarin [Coumadin] 10 mg PO WEFR@1800 10/11/23 10/11/23 ARIPiprazole [Abilify] 2 mg PO DAILY 01/22/24 01/22/24 Propranolol [Inderal] 10 mg PO BID PRN 01/22/24 01/22/24 haloperidoL [Haldol] 1 mg PO HS 01/22/24 01/22/24 hydrOXYzine HCL [Atarax] 25 mg PO HS 01/22/24 01/22/24 Allergies/Adverse Reactions: Allergies Allergy/AdvReac Type Severity Reaction Status Date / Time No Known Allergies Allergy Verified 01/22/24 09:58 Review of Systems ROS Statement: Those systems with pertinent positive or pertinent negative responses have been documented in the HPI. ROS Other: All systems not noted in ROS Statement are negative. Past Medical History Past Medical History: Deep Vein Thrombosis (DVT), Hypertension, Pulmonary Embolus (PE) Additional Past Medical History / Comment(s): dvt rt thigh & PE x 2-2012, kidney stones History of Any Multi-Drug Resistant Organisms: None Reported Past Surgical History: Hernia Repair Additional Past Surgical History / Comment(s): varicose vein stripping,double hernia repair Aug 2014 Past Anesthesia/Blood Transfusion Reactions: No Reported Reaction Past Psychological History: Anxiety Smoking Status: Never smoker Past Alcohol Use History: Occasional Past Drug Use History: None Reported - Past Family History Father Family Medical History: Cancer, Deep Vein Thrombosis (DVT) Additional Family Medical History / Comment(s): prostate Mother Family Medical History: Cancer Additional Family Medical History / Comment(s): breast Sister(s) Family Medical History: Cancer Additional Family Medical History / Comment(s): breast General Exam Limitations: no limitations General appearance: alert, in no apparent distress, anxious (Mild tremors pr esent bilaterally upon examination) Head exam: Present: atraumatic, normocephalic, normal inspection Eye exam: Present: normal appearance, PERRL, EOMI. Absent: scleral icterus, conjunctival injection, periorbital swelling ENT exam: Present: normal exam, mucous membranes moist Respiratory exam: Present: normal lung sounds bilaterally. Absent: respiratory distress, wheezes, rales, rhonchi, stridor Cardiovascular Exam: Present: regular rate, normal rhythm, normal heart sounds. Absent: systolic murmur, diastolic murmur, rubs, gallop, clicks GI/Abdominal exam: Present: soft, normal bowel sounds. Absent: distended, tenderness, guarding, rebound, rigid Psychiatric exam: Present: normal affect, normal mood, anxious Skin exam: Present: warm, dry, intact, normal color. Absent: rash Course Vital Signs 01/22/24 01/22/24 01/22/24 08:08 09:54 09:56 Temperature 97.7 F 98 F Pulse Rate 85 80 Pulse Rate [ 80 Radial] Respiratory 18 18 Rate Blood Pressure 157/109 147/93 O2 Sat by Pulse 98 96 Oximetry Medical Decision Making - Medical Decision Making Was pt. sent in by a medical professional or institution (, PA, [employer], urgent care, hospital, or half-way...) When possible be specific @ -[No] Did you speak to anyone other than the patient for history (EMS, parent, family, police, friend...)? What history was obtained from this source @ -[No] Did you review nursing and triage notes (agree or disagree)? Why? @ -[I reviewed and agree with nursing and triage notes] Were old charts reviewed (outside hosp., previous admission, EMS record, old EKG, old radiological studies, urgent care reports/EKG's, half-way records)? Report findings @ -[No old charts were reviewed] Differential Diagnosis (chest pain, altered mental status, abdominal pain women, abdominal pain men, vaginal bleeding, weakness, fever, dyspnea, syncope, headache, dizziness, GI bleed, back pain, seizure, CVA, palpatations, mental health, musculoskeletal)? @ -Differential Chest Pain: Acute anxiety, panic attack, stable Angina, Unstable Angina, STEMI, NSTEMI Aortic Dissection, Pneumothorax, Musculoskeletal, Esophageal Spasm GERD, Cholecystitis, Pancreatitis, Zoster, this is not meant to be an all-inclusive list. EKG interpreted by me (3pts min.). @ -As above X-rays interpreted by me (1pt min.). @ -X-ray negative CT interpreted by me (1pt min.). @ -[None done] U/S interpreted by me (1pt. min.). @ -[None done] What testing was considered but not performed or refused? (CT, X-rays, U/S, labs)? Why? @ -[None] What meds were considered but not given or refused? Why? @ -[None] Did you discuss the management of the patient with other professionals (professionals i.e. , PA, [employer], lab, RT, psych nurse, social insurance specialist, inside horticultural specialty grower, teacher, human resource officer, mental health case manager)? Give summary @ -[No] Was smoking cessation discussed for >3mins.? @ -[No] Was critical care preformed (if so, how long)? @ -[No] Were there social determinants of health that impacted care today? How? (Home lessness, low income, unemployed, alcoholism, drug addiction, transportation, low edu. Level, literacy, decrease access to med. care, group home, rehab)? @ -[No] Was there de-escalation of care discussed even if they declined (Discuss DNR or withdrawal of care, Hospice)? DNR status @ -[No] What co-morbidities impacted this encounter? (DM, HTN, Smoking, COPD, CAD, Cancer, CVA, ARF, Chemo, Hep., AIDS, mental health diagnosis, sleep apnea, morbid obesity)? @ -Generalized anxiety disorder Was patient admitted / discharged? Hospital course, mention meds given and route, prescriptions, significant lab abnormalities, going to OR and other pertinent info. @ -She was discharged. Patient was seen and evaluated for anxiety and chest pain. Chest x-ray, EKG, and lab work were unremarkable. Patient was given Ativan and fluids and reported that symptoms had resolved. Instructed to follow-up with psychiatrist within 48 hours. Patient discharged in stable condition. Case discussed with Dr. Horne Undiagnosed new problem with uncertain prognosis? @ -[No] Drug Therapy requiring intensive monitoring for toxicity (Heparin, Nitro, Insulin, Cardizem)? @ -[No] Were any procedures done? @ -[No] Diagnosis/symptom? @ -Acute anxiety Acute, or Chronic, or Acute on Chronic? @ -Acute Uncomplicated (without systemic symptoms) or Complicated (systemic symptoms)? @ -Uncomplicated Side effects of treatment? @ -[No] Exacerbation, Progression, or Severe Exacerbation? @ -[No] Poses a threat to life or bodily function? How? (Chest pain, [place], [place], pneumonia, PE, COPD, DKA, ARF, appy, cholecystitis, CVA, Diverticulitis, Homicidal, Suicidal, threat to staff... and all critical care pts) @ -[No] - Lab Data Result diagrams: 01/22/24 09:02 01/22/24 09:02 Lab Results 01/22/24 01/22/24 01/22/24 Range/Units 09:02 09:02 09:02 WBC 4.8 (3.8-10.6) k/uL RBC 4.17 L (4.30-5.90) m/uL Hgb 13.7 (13.0-17.5) gm/dL Hct 39.7 (39.0-53.0) % MCV 95.3 (80.0-100.0) fL MCH 32.9 (25.0-35.0) pg MCHC 34.6 (31.0-37.0) g/dL RDW 12.9 (11.5-15.5) % Plt Count 209 (150-450) k/uL MPV 8.1 Neutrophils % 64 % Lymphocytes % 20 % Monocytes % 9 % Eosinophils % 3 % Basophils % 1 % Neutrophils # 3.1 (1.3-7.7) k/uL Lymphocytes # 0.9 L (1.0-4.8) k/uL Monocytes # 0.4 (0-1.0) k/uL Eosinophils # 0.1 (0-0.7) k/uL Basophils # 0.0 (0-0.2) k/uL Sodium 140 (137-145) mmol/L Potassium 4.3 (3.5-5.1) mmol/L Chloride 107 (98-107) mmol/L Carbon Dioxide 26 (22-30) mmol/L Anion Gap 7 mmol/L BUN 12 (9-20) mg/dL Creatinine 1.00 (0.66-1.25) mg/dL Est GFR (CKD-EPI)AfAm >90 (>60 ml/min/1.73 sqM) Est GFR (CKD-EPI)NonAf 81 (>60 ml/min/1.73 sqM) Glucose 99 (74-99) mg/dL Calcium 9.0 (8.4-10.2) mg/dL Total Bilirubin 0.6 (0.2-1.3) mg/dL AST 22 (17-59) U/L ALT 20 (4-49) U/L Alkaline Phosphatase 47 (38-126) U/L Troponin I <0.012 (0.000-0.034) ng/mL Total Protein 6.7 (6.3-8.2) g/dL Albumin 4.3 (3.5-5.0) g/dL - EKG Data -: EKG Interpreted by Me EKG Comments: EKG reveals normal sinus rhythm. Ventricular rate 80 bpm, FL interval 153, QRS duration 88, QT/QTc 356/393 Interpretation: no acute changes Disposition Clinical Impression: Acute anxiety Disposition: HOME SELF-CARE Condition: Stable Instructions (If sedation given, give patient instructions): Generalized Anxiety Disorder (ED) Additional Instructions: Follow-up with psychiatrist within 48 hours. Please return to the Emergency Department if symptoms worsen or any other concerns. Is patient prescribed a controlled substance at d/c from ED?: No Referrals: Grover Gomez MD [Primary Care Provider] - 1-2 days Time of Disposition: 10:28
[2024-01-22] MEDS: LORazepam 2 MG/ML INJ IV STA (09:09)
[2024-01-22] MEDS: SODIUM CHLORIDE 0.9% 1,000 ML IV STA (09:10)
[2024-01-22 09:41] LABS: Basophils % (A) 1 %; Eosinophils # (A) 0.1 k/uL (0-0.7); Eosinophils % (A) 3 %; HCT 39.7 % (39.0-53.0); HGB 13.7 gm/dL (13.0-17.5); Lymphocytes # (A) 0.9 k/uL (1.0-4.8); Lymphocytes % (A) 20 %; MCH 32.9 pg (25.0-35.0); MCHC 34.6 g/dL (31.0-37.0); MCV 95.3 fL (80.0-100.0); Mean Platelet Volume 8.1; Monocytes # (A) 0.4 k/uL (0-1.0); Monocytes % (A) 9 %; Neutrophils # (A) 3.1 k/uL (1.3-7.7); Neutrophils % (A) 64 %; Platelet Count 209 k/uL (150-450); RBC 4.17 m/uL (4.30-5.90); RDW 12.9 % (11.5-15.5); WBC 4.8 k/uL (3.8-10.6)
[2024-01-22 09:50] LABS: ALT 20 U/L (4-49); AST 22 U/L (17-59); African American GFR (CKD) >90 (>60 ml/min/1.73 sqM); Albumin 4.3 g/dL (3.5-5.0); Alkaline Phosphatase 47 U/L (38-126); Anion Gap 7 mmol/L; Blood Urea Nitrogen 12 mg/dL (9-20); Carbon Dioxide 26 mmol/L (22-30); Chloride 107 mmol/L (98-107); Glucose 99 mg/dL (74-99); Non-African American GFR(CKD) 81 (>60 ml/min/1.73 sqM); Potassium 4.3 mmol/L (3.5-5.1); Sodium 140 mmol/L (137-145); Total Bilirubin 0.6 mg/dL (0.2-1.3); Total Protein 6.7 g/dL (6.3-8.2)
--- NOTE | 2024-01-22 09:57 | XR ---
EXAMINATION TYPE: XR chest 2V DATE OF EXAM: 01/22/2024 COMPARISON: 07/06/2012 INDICATION: Chest discomfort TECHNIQUE: Frontal and lateral views of the chest are obtained. FINDINGS: The heart size is normal. The pulmonary vasculature is normal. The lungs are clear. IMPRESSION: 1. No acute pulmonary process.
[2024-01-22 10:33] VITALS: PULSE 80; TEMP 98
[2024-01-22 11:16] VITALS: BP 139/81
== END 2024-01-22 10:46 | disposition home or self-care (01) ==
LOC: EC 08:04
DX: F41.1 Generalized anxiety disorder (principal); Z79.899 Other long term (current) drug therapy
CPT/HCPCS: 36415; 93005; 80053; 84484; 85025; 71046; 99284; 96374; 96361 ×2; J2060

== ENCOUNTER 2024-01-27 12:19 | Emergency (ER) | payer BC ==
[2024-01-27 12:54] VITALS: TEMP 98.2
[2024-01-27 14:36] LABS: Basophils # (A) 0.1 k/uL (0-0.2); Basophils % (A) 1 %; Eosinophils # (A) 0.1 k/uL (0-0.7); Eosinophils % (A) 2 %; HGB 14.3 gm/dL (13.0-17.5); Lymphocytes # (A) 1.2 k/uL (1.0-4.8); Lymphocytes % (A) 21 %; MCH 33.3 pg (25.0-35.0); MCHC 34.9 g/dL (31.0-37.0); MCV 95.5 fL (80.0-100.0); Mean Platelet Volume 8.1; Monocytes # (A) 0.4 k/uL (0-1.0); Monocytes % (A) 7 %; Neutrophils # (A) 3.8 k/uL (1.3-7.7); Neutrophils % (A) 67 %; Platelet Count 237 k/uL (150-450); RDW 12.9 % (11.5-15.5); WBC 5.7 k/uL (3.8-10.6)
[2024-01-27] MEDS: LORazepam 2 MG/ML INJ IV STA (14:38)
[2024-01-27 15:00] LABS: ALT 23 U/L (4-49); African American GFR (CKD) >90 (>60 ml/min/1.73 sqM); Anion Gap 6 mmol/L; Blood Urea Nitrogen 13 mg/dL (9-20); Calcium 9.1 mg/dL (8.4-10.2); Carbon Dioxide 24 mmol/L (22-30); Chloride 110 mmol/L (98-107); Glucose 94 mg/dL (74-99); Non-African American GFR(CKD) 82 (>60 ml/min/1.73 sqM); Sodium 140 mmol/L (137-145); Total Bilirubin 0.9 mg/dL (0.2-1.3)
[2024-01-27 15:02] LABS: Total Protein 7.2 g/dL (6.3-8.2)
[2024-01-27 15:03] LABS: AST 35 U/L (17-59); Albumin 4.4 g/dL (3.5-5.0); Alkaline Phosphatase 42 U/L (38-126); Potassium 4.6 mmol/L (3.5-5.1)
--- NOTE | 2024-01-27 15:16 | ED ---
Anxiety HPI - General Chief Complaint: Anxiety Stated Complaint: headache Time Seen by Provider: 01/27/24 12:29 Source: patient, RN notes reviewed Mode of arrival: ambulatory Limitations: no limitations - History of Present Illness Initial Comments: 63-year-old male presents emergency department chief complaint of anxiety issues. Patient states has been having worsening symptoms for a while states he was also recently seen here in the emergency department. He states he was hospitalized earlier in the year for depression, anxiety, stress ideation. Patient states that he has been having worsening persistent headache which is new for this patient and is concerning. Patient states he has had no recent lab work or thyroid studies. He states he was priorly on lithium and Haldol but his psychiatrist weaned him off of this. Patient states he is on a anxiolytic medication. Patient again denies being suicidal or homicidal currently. - Related Data Home Medications: Home Medications Medication Instructions Recorded Confirmed Losartan [Cozaar] 50 mg PO BID 12/10/14 01/27/24 Acetaminophen Tab [Tylenol] 650 mg PO Q4-6H PRN 10/11/23 01/27/24 DULoxetine HCL [Cymbalta] 60 mg PO DAILY 10/11/23 01/27/24 LORazepam 0.5 mg PO DAILY PRN 10/11/23 01/27/24 Pravastatin Sodium [Pravachol] 80 mg PO DAILY 10/11/23 01/27/24 Warfarin [Coumadin] 5 mg PO SUMOTUTHFR@1800 10/11/23 01/27/24 Warfarin [Coumadin] 10 mg PO WESA@1800 10/11/23 01/27/24 ARIPiprazole [Abilify] 2 mg PO DAILY 01/22/24 01/27/24 Propranolol [Inderal] 10 mg PO BID PRN 01/22/24 01/27/24 haloperidoL [Haldol] 1 mg PO HS 01/22/24 01/27/24 hydrOXYzine HCL [Atarax] 25 mg PO HS 01/22/24 01/27/24 Allergies/Adverse Reactions: Allergies Allergy/AdvReac Type Severity Reaction Status Date / Time No Known Allergies Allergy Verified 01/27/24 15:00 Review of Systems ROS Statement: Those systems with pertinent positive or pertinent negative responses have been documented in the HPI. ROS Other: All systems not noted in ROS Statement are negative. Past Medical History Past Medical History: Deep Vein Thrombosis (DVT), Hypertension, Pulmonary Embolus (PE) Additional Past Medical History / Comment(s): dvt rt thigh & PE x 2-2012, kidney stones History of Any Multi-Drug Resistant Organisms: None Reported Past Surgical History: Hernia Repair Additional Past Surgical History / Comment(s): varicose vein stripping,double hernia repair Aug 2014 Past Anesthesia/Blood Transfusion Reactions: No Reported Reaction Past Psychological History: Anxiety Smoking Status: Never smoker Past Alcohol Use History: Occasional Past Drug Use History: None Reported - Past Family History Father Family Medical History: Cancer, Deep Vein Thrombosis (DVT) Additional Family Medical History / Comment(s): prostate Mother Family Medical History: Cancer Additional Family Medical History / Comment(s): breast Sister(s) Family Medical History: Cancer Additional Family Medical History / Comment(s): breast General Exam Limitations: no limitations General appearance: alert, in no apparent distress Head exam: Present: atraumatic, normocephalic, normal inspection Eye exam: Present: normal appearance, PERRL, EOMI. Absent: scleral icterus, conjunctival injection, periorbital swelling ENT exam: Present: normal exam, normal oropharynx, mucous membranes moist Neck exam: Present: normal inspection, full ROM. Absent: tenderness, meningismus, lymphadenopathy Respiratory exam: Present: normal lung sounds bilaterally. Absent: respiratory distress, wheezes, rales, rhonchi, stridor Cardiovascular Exam: Present: regular rate, normal rhythm, normal heart sounds. Absent: systolic murmur, diastolic murmur, rubs, gallop, clicks GI/Abdominal exam: Present: soft, normal bowel sounds. Absent: distended, tenderness, guarding, rebound, rigid Neurological exam: Present: alert, oriented X3, CN II-XII intact, reflexes normal. Absent: motor sensory deficit Skin exam: Present: warm, dry, intact, normal color. Absent: rash Course Vital Signs 01/27/24 01/27/24 01/27/24 12:20 14:22 15:00 Temperature 98.2 F Pulse Rate 66 87 76 Respiratory 20 20 16 Rate Blood Pressure 147/98 154/104 O2 Sat by Pulse 98 98 99 Oximetry 01/27/24 17:00 Temperature Pulse Rate 76 Respiratory 16 Rate Blood Pressure 136/82 O2 Sat by Pulse 96 Oximetry Medical Decision Making - Medical Decision Making Was pt. sent in by a medical professional or institution (, PA, [employer], urgent care, hospital, or residential...) When possible be specific @ -No Did you speak to anyone other than the patient for history (EMS, parent, family, police, friend...)? What history was obtained from this source @ -No Did you review nursing and triage notes (agree or disagree)? Why? @ -I reviewed and agree with nursing and triage notes Were old charts reviewed (outside hosp., previous admission, EMS record, old EKG, old radiological studies, urgent care reports/EKG's, residential records)? Report findings @ -No old charts were reviewed Differential Diagnosis (chest pain, altered mental status, abdominal pain women, abdominal pain men, vaginal bleeding, weakness, fever, dyspnea, syncope, headache, dizziness, GI bleed, back pain, seizure, CVA, palpatations, mental health, musculoskeletal)? @ -Differential Mental Health Depression, anxiety, bipolar, psychosis, schizophrenia, borderline personality, situational depression, adjustment disorder, behavioral disorder, brain tumor, m alingering, substance abuse, encephalopathy, medication reaction, dementia, hypothyroidism, degenerative neurologic disorder, lupus.... This is not meant to be all-inclusive list differential Headache: Migraine, tension, cluster, carbon monoxide, central venous thrombosis, pension karma temporal arteritis, acute closure glaucoma, intercranial hemorrhage, mastoiditis, sinusitis, head injury, this is not meant to be an all-inclusive list. EKG interpreted by me (3pts min.). @ -As above X-rays interpreted by me (1pt min.). @ -None done CT interpreted by me (1pt min.). @ -CT brain showing no acute intracranial hemorrhage U/S interpreted by me (1pt. min.). @ -None done What testing was considered but not performed or refused? (CT, X-rays, U/S, labs)? Why? @ -None What meds were considered but not given or refused? Why? @ -None Did you discuss the management of the patient with other professionals (professionals i.e. , PA, CHAIN MAKER MACHINE, lab, RT, psych nurse, clinical social work aide, buffing line set up worker, teacher, railroad police officer, shoe caser)? Give summary @ -No Was smoking cessation discussed for >3mins.? @ -No Was critical care preformed (if so, how long)? @ -No Were there social determinants of health that impacted care today? How? (Homelessness, low income, unemployed, alcoholism, drug addiction, transportation, low edu. Level, literacy, decrease access to med. care, halfway, rehab)? @ -No Was there de-escalation of care discussed even if they declined (Discuss DNR or withdrawal of care, Hospice)? DNR status @ -No What co-morbidities impacted this encounter? (DM, HTN, Smoking, COPD, CAD, Cancer, CVA, ARF, Chemo, Hep., AIDS, mental health diagnosis, sleep apnea, morbid obesity)? @ -[Anxiety Was patient admitted / discharged? Hospital course, mention meds given and route, prescriptions, significant lab abnormalities, going to OR and other pertinent info. @ -Discharge patient for completing labs, CT of the brain patient has no acute findings. This may related to underlying anxiety, psychiatric issues he is advised to follow-up with his psychiatrist for medications. Undiagnosed new problem with uncertain prognosis? @ -No Drug Therapy requiring intensive monitoring for toxicity (Heparin, Nitro, Insuli n, Cardizem)? @ -No Were any procedures done? @ -No Diagnosis/symptom? @ -Anxiety, headache Acute, or Chronic, or Acute on Chronic? @ -Acute Uncomplicated (without systemic symptoms) or Complicated (systemic symptoms)? @ -Complicated Side effects of treatment? @ -No Exacerbation, Progression, or Severe Exacerbation? @ -No Poses a threat to life or bodily function? How? (Chest pain, [place], [place], pneumonia, PE, COPD, DKA, ARF, appy, cholecystitis, CVA, Diverticulitis, Homicidal, Suicidal, threat to staff... and all critical care pts) @ -No - Lab Data Result diagrams: 01/27/24 14:28 01/27/24 14:28 Lab Results 01/27/24 01/27/24 Range/Units 14:28 14:28 WBC 5.7 (3.8-10.6) k/uL RBC 4.30 (4.30-5.90) m/uL Hgb 14.3 (13.0-17.5) gm/dL Hct 41.0 (39.0-53.0) % MCV 95.5 (80.0-100.0) fL MCH 33.3 (25.0-35.0) pg MCHC 34.9 (31.0-37.0) g/dL RDW 12.9 (11.5-15.5) % Plt Count 237 (150-450) k/uL MPV 8.1 Neutrophils % 67 % Lymphocytes % 21 % Monocytes % 7 % Eosinophils % 2 % Basophils % 1 % Neutrophils # 3.8 (1.3-7.7) k/uL Lymphocytes # 1.2 (1.0-4.8) k/uL Monocytes # 0.4 (0-1.0) k/uL Eosinophils # 0.1 (0-0.7) k/uL Basophils # 0.1 (0-0.2) k/uL Sodium 140 (137-145) mmol/L Potassium 4.6 (3.5-5.1) mmol/L Chloride 110 H (98-107) mmol/L Carbon Dioxide 24 (22-30) mmol/L Anion Gap 6 mmol/L BUN 13 (9-20) mg/dL Creatinine 0.99 (0.66-1.25) mg/dL Est GFR (CKD-EPI)AfAm >90 (>60 ml/min/1.73 sqM) Est GFR (CKD-EPI)NonAf 82 (>60 ml/min/1.73 sqM) Glucose 94 (74-99) mg/dL Calcium 9.1 (8.4-10.2) mg/dL Total Bilirubin 0.9 (0.2-1.3) mg/dL AST 35 (17-59) U/L ALT 23 (4-49) U/L Alkaline Phosphatase 42 (38-126) U/L Total Protein 7.2 (6.3-8.2) g/dL Albumin 4.4 (3.5-5.0) g/dL TSH 0.568 (0.465-4.680) mIU/L - EKG Data -: EKG Interpreted by Me EKG Comments: EKG performed at 12: 28 sinus rhythm rate of 89 ID 153 QRS 79 QT/QTc 329/376 Disposition Clinical Impression: Acute anxiety Disposition: HOME SELF-CARE Condition: Stable Instructions (If sedation given, give patient instructions): Generalized Anxiety Disorder (ED) Additional Instructions: Please return to the Emergency Department if symptoms worsen or any other concerns. Is patient prescribed a controlled substance at d/c from ED?: No Referrals: Grover Gomez MD [Primary Care Provider] - 1-2 days Time of Disposition: 15:16
--- NOTE | 2024-01-27 16:34 | CT ---
EXAMINATION TYPE: CT brain wo con DATE OF EXAM: 01/27/2024 COMPARISON: None HISTORY: Headache x 10 day, confusion CT DLP: 1138.4 mGycm Automated exposure control for dose reduction was used. Findings: The ventricles, basal cisterns and sulci over the convexities are within normal limits and there is n o mass effect or shift of midline structures. No abnormal density is seen throughout the brain parenchyma and there is no acute intra or extra-axia l hemorrhage. The posterior fossa including the brainstem, fourth ventricle and cerebellar pontine angles appear no rmal. Intraorbital contents appear normal and symmetric. Visualized paranasal sinuses and mastoid air cells are well aerated. The calvarium is intact. IMPRESSION: No significant abnormality seen. There is no acute bleed or mass effect.
[2024-01-27 18:30] VITALS: BP 136/82; PULSE 76; RESP 16
== END 2024-01-27 17:00 | disposition home or self-care (01) ==
LOC: EC 12:19
DX: F41.9 Anxiety disorder, unspecified (principal); R51.9 Headache, unspecified; Z79.899 Other long term (current) drug therapy
CPT/HCPCS: 36415; 80053; 84443; 85025; 70450; 99284; 96374; J2060

== ENCOUNTER 2024-02-04 13:26 | Inpatient (IN) | payer BC ==
--- NOTE | 2024-02-04 14:46 | ED ---
Psych HPI - General Source: patient, RN notes reviewed Mode of arrival: ambulatory <Nan Tsai - Last Filed: 02/04/24 14:49> <Jean Young - Last Filed: 02/04/24 21:33> <Alexis Horne - Last Filed: 02/05/24 03:22> - General Chief Complaint: Psychiatric Symptoms Stated Complaint: Mental health eval,chest tightness Time Seen by Provider: 02/04/24 14:30 - History of Present Illness Initial Comments: Quick [id number] male with history of anxiety presenting for anxious thoughts and chest tightness. Patient states he woke up this morning and was having "negative thoughts ". Patient has a history of anxiety but he is concerned because they are worsening today. He is also having thoughts of self- harm but denies a suicide plan. He states the chest pain is intermittent and started this morning as well. (Nan Tsai) 63-year-old male presenting for evaluation of anxiety, depression, suicidal ideation. Patient here for mental health evaluation. He did complain of some vague chest tightness this morning as well. No prior history of CAD. Patient denies drugs or alcohol. Denies suicide attempt. (Jean Young) - Related Data Home Medications Medication Instructions Recorded Confirmed Losartan [Cozaar] 50 mg PO BID 12/10/14 02/04/24 Pravastatin Sodium [Pravachol] 80 mg PO DAILY 10/11/23 02/04/24 Warfarin [Coumadin] 5 mg PO SUMOTUTHFR@1800 10/11/23 02/04/24 Warfarin [Coumadin] 10 mg PO WESA@1800 10/11/23 02/04/24 Propranolol [Inderal] 10 mg PO BID PRN 01/22/24 02/04/24 hydrOXYzine HCL [Atarax] 25 mg PO TID 01/22/24 02/04/24 DULoxetine HCL [Cymbalta] 20 mg PO DAILY 02/04/24 02/04/24 busPIRone HCl [Buspar] 5 mg PO TID 02/04/24 02/04/24 Allergies Allergy/AdvReac Type Severity Reaction Status Date / Time No Known Allergies Allergy Verified 02/04/24 17:54 Review of Systems ROS Other: All systems not noted in ROS Statement are negative. <Nan Tsai - Last Filed: 02/04/24 14:49> ROS Other: All systems not noted in ROS Statement are negative. <Jean Young - Last Filed: 02/04/24 21:33> ROS Other: All systems not noted in ROS Statement are negative. <OzzieAlexis - Last Filed: 02/05/24 03:22> ROS Statement: Those systems with pertinent positive or pertinent negative responses have been documented in the HPI. Past Medical History Past Medical History: Deep Vein Thrombosis (DVT), Hypertension, Pulmonary Embolus (PE) Additional Past Medical History / Comment(s): dvt rt thigh & PE x 2-2012, kidney stones History of Any Multi-Drug Resistant Organisms: None Reported Past Surgical History: Hernia Repair Additional Past Surgical History / Comment(s): varicose vein stripping,double hernia repair Aug 2014 Past Anesthesia/Blood Transfusion Reactions: No Reported Reaction Past Psychological History: Anxiety Smoking Status: Never smoker Past Alcohol Use History: Occasional Past Drug Use History: None Reported - Past Family History Father Family Medical History: Cancer, Deep Vein Thrombosis (DVT) Additional Family Medical History / Comment(s): prostate Mother Family Medical History: Cancer Additional Family Medical History / Comment(s): breast Sister(s) Family Medical History: Cancer Additional Family Medical History / Comment(s): breast <Nan Tsai - Last Filed: 02/04/24 14:49> General Exam Limitations: no limitations <Nan Tsai - Last Filed: 02/04/24 14:49> General appearance: alert, anxious Head exam: Present: atraumatic, normocephalic Eye exam: Present: normal appearance, PERRL ENT exam: Present: normal exam Neck exam: Present: normal inspection. Absent: tenderness, meningismus Respiratory exam: Present: normal lung sounds bilaterally. Absent: respiratory distress, wheezes Cardiovascular Exam: Present: regular rate, normal rhythm GI/Abdominal exam: Present: soft. Absent: distended, tenderness Extremities exam: Present: normal inspection. Absent: pedal edema Neurological exam: Present: alert, oriented X3, CN II-XII intact. Absent: motor sensory deficit Psychiatric exam: Present: depressed, anxious, suicidal ideation Skin exam: Present: warm, dry, intact. Absent: cyanosis, diaphoretic <Jean Young - Last Filed: 02/04/24 21:33> - General Exam Comments Initial Comments: Visual Physical Exam Vital signs reviewed General: Well-appearing, nontoxic, no acute distress. Head: Normocephalic, atraumatic Eyes: PERRLA, EOMI ENT: Airway patent Chest: Nonlabored breathing Skin: No visual rash, normal skin tone Neuro: Alert and oriented 3 Musculoskeletal: No gross abnormalities (Nan Tsai) Course <Jean Young - Last Filed: 02/04/24 21:33> Vital Signs 02/04/24 02/04/24 02/04/24 13:42 20:00 21:55 Temperature 97.9 F Pulse Rate 116 H 91 91 Respiratory 20 18 18 Rate Blood Pressure 138/88 134/92 140/95 O2 Sat by Pulse 99 97 97 Oximetry - Reevaluation(s) Reevaluation #1: 02/04/24 16:29 Cleared for EPS evaluation (Jean Young) Medical Decision Making <Nan Tsai - Last Filed: 02/04/24 14:49> - Lab Data Result diagrams: 02/04/24 15:55 02/04/24 15:55 <Jean Young - Last Filed: 02/04/24 21:33> - Lab Data Result diagrams: 02/04/24 15:55 02/04/24 15:55 <Alexis Horne - Last Filed: 02/05/24 03:22> - Medical Decision Making I completed the quick note portion of this chart signed Nan Tsai PA-C ( Nan Tsai) Was pt. sent in by a medical professional or institution (DARIEL Sierra, DATA ENTRY EMAIL PROCESSOR, urgent care, hospital, or residential...) When possible be specific @ -No Did you speak to anyone other than the patient for history (EMS, parent, family, police, friend...)? What history was obtained from this source @ -No Did you review nursing and triage notes (agree or disagree)? Why? @ -I reviewed and agree with nursing and triage notes Were old charts reviewed (outside hosp., previous admission, EMS record, old EKG, old radiological studies, urgent care reports/EKG's, residential records)? Report findings @ -No old charts were reviewed Differential Mental Health Depression, anxiety, bipolar, psychosis, schizophrenia, borderline personality, situational depression, adjustment disorder, behavioral disorder, brain tumor, malingering, substance abuse, encephalopathy, medication reaction, dementia, hypothyroidism, degenerative neurologic disorder, lupus.... This is not meant to be all-inclusive list EKG interpreted by me (3pts min.). @ -Chest x-ray, sinus rhythm rate of 97, DE interval 148, QRS duration 82, QTc [address] segment elevation. X-rays interpreted by me (1pt min.). @Chest x-ray, no acute cardiopulmonary findings CT interpreted by me (1pt min.). @ -None done U/S interpreted by me (1pt. min.). @ -None done What testing was considered but not performed or refused? (CT, X-rays, U/S, labs)? Why? @ -None What meds were considered but not given or refused? Why? @ -None Did you discuss the management of the patient with other professionals (professionals i.e. , PA, DATA ENTRY EMAIL PROCESSOR, lab, RT, psych nurse, social services director, equity research analyst, teacher, control officer, upper caser)? Give summary @ -No Was smoking cessation discussed for >3mins.? @ -No Was critical care preformed (if so, how long)? @ -No Were there social determinants of health that impacted care today? How? ([place] elessness, low income, unemployed, alcoholism, drug addiction, transportation, low edu. Level, literacy, decrease access to med. care, fci, rehab)? @ -No Was there de-escalation of care discussed even if they declined (Discuss DNR or withdrawal of care, Hospice)? DNR status @ -No What co-morbidities impacted this encounter? (DM, HTN, Smoking, COPD, CAD, Cancer, CVA, ARF, Chemo, Hep., AIDS, mental health diagnosis, sleep apnea, morbid obesity)? @ -[Depression Was patient admitted / discharged? Hospital course, mention meds given and route, prescriptions, significant lab abnormalities, going to OR and other pertinent info. @ -Patient medically cleared awaiting EPS evaluation (Jean Young) Patient was pending evaluation by psychiatry. Medically cleared by prior ER physician. Presented with anxiety, depression and suicidal ideation. EPS Evaluated the patient and determined that patient does meet inpatient criteria. Patient signed himself in for admission. Diagnosis/symptom? @ -Depression, anxiety, suicidal ideation Acute, or Chronic, or Acute on Chronic? @ -Acute Uncomplicated (without systemic symptoms) or Complicated (systemic symptoms)? @ -Complicated Side effects of treatment? @ -None Exacerbation, Progression, or Severe Exacerbation] @ -No Poses a threat to life or bodily function? @ -Yes (Alexis Horne) - Lab Data Lab Results 02/04/24 02/04/24 02/04/24 Range/Units 15:39 15:55 15:55 WBC 7.1 (3.8-10.6) k/uL RBC 4.46 (4.30-5.90) m/uL Hgb 14.1 (13.0-17.5) gm/dL Hct 42.6 (39.0-53.0) % MCV 95.6 (80.0-100.0) fL MCH 31.7 (25.0-35.0) pg MCHC 33.2 (31.0-37.0) g/dL RDW 12.6 (11.5-15.5) % Plt Count 238 (150-450) k/uL MPV 8.2 Neutrophils % 65 % Lymphocytes % 20 % Monocytes % 8 % Eosinophils % 2 % Basophils % 1 % Neutrophils # 4.6 (1.3-7.7) k/uL Lymphocytes # 1.4 (1.0-4.8) k/uL Monocytes # 0.6 (0-1.0) k/uL Eosinophils # 0.2 (0-0.7) k/uL Basophils # 0.1 (0-0.2) k/uL PT 14.2 H (10.0-12.5) sec INR 1.4 H (<1.2) APTT 24.5 (22.0-30.0) sec Sodium (137-145) mmol/L Potassium (3.5-5.1) mmol/L Chloride (98-107) mmol/L Carbon Dioxide (22-30) mmol/L Anion Gap mmol/L BUN (9-20) mg/dL Creatinine (0.66-1.25) mg/dL Est GFR (CKD-EPI)AfAm (>60 ml/min/1.73 sqM) Est GFR (CKD-EPI)NonAf (>60 ml/min/1.73 sqM) Glucose (74-99) mg/dL Calcium (8.4-10.2) mg/dL Magnesium (1.6-2.3) mg/dL Total Bilirubin (0.2-1.3) mg/dL AST (17-59) U/L ALT (4-49) U/L Alkaline Phosphatase (38-126) U/L Troponin I (0.000-0.034) ng/mL Total Protein (6.3-8.2) g/dL Albumin (3.5-5.0) g/dL Urine Opiates Screen Not Detected (NotDetected) Ur Oxycodone Screen Not Detected (NotDetected) Urine Methadone Screen Not Detected (NotDetected) Ur Barbiturates Screen Not Detected (NotDetected) U Tricyclic Antidepress Not Detected (NotDetected) Ur Phencyclidine Scrn Not Detected (NotDetected) Ur Amphetamines Screen Not Detected (NotDetected) U Methamphetamines Scrn Not Detected (NotDetected) U Benzodiazepines Scrn Not Detected (NotDetected) Urine Cocaine Screen Not Detected (NotDetected) U Marijuana (THC) Screen Not Detected (NotDetected) Influenza Type A (PCR) (Not Detectd) Influenza Type B (PCR) (Not Detectd) RSV (PCR) (Not Detectd) SARS-CoV-2 (PCR) (Not Detectd) 02/04/24 02/04/24 02/05/24 Range/Units 15:55 15:55 01:15 WBC (3.8-10.6) k/uL RBC (4.30-5.90) m/uL Hgb (13.0-17.5) gm/dL Hct (39.0-53.0) % MCV (80.0-100.0) fL MCH (25.0-35.0) pg MCHC (31.0-37.0) g/dL RDW (11.5-15.5) % Plt Count (150-450) k/uL MPV Neutrophils % % Lymphocytes % % Monocytes % % Eosinophils % % Basophils % % Neutrophils # (1.3-7.7) k/uL Lymphocytes # (1.0-4.8) k/uL Monocytes # (0-1.0) k/uL Eosinophils # (0-0.7) k/uL Basophils # (0-0.2) k/uL PT (10.0-12.5) sec INR (<1.2) APTT (22.0-30.0) sec Sodium 142 (137-145) mmol/L Potassium 4.3 (3.5-5.1) mmol/L Chloride 112 H (98-107) mmol/L Carbon Dioxide 23 (22-30) mmol/L Anion Gap 7 mmol/L BUN 18 (9-20) mg/dL Creatinine 0.96 (0.66-1.25) mg/dL Est GFR (CKD-EPI)AfAm >90 (>60 ml/min/1.73 sqM) Est GFR (CKD-EPI)NonAf 86 (>60 ml/min/1.73 sqM) Glucose 90 (74-99) mg/dL Calcium 9.2 (8.4-10.2) mg/dL Magnesium 1.9 (1.6-2.3) mg/dL Total Bilirubin 0.6 (0.2-1.3) mg/dL AST 26 (17-59) U/L ALT 22 (4-49) U/L Alkaline Phosphatase 49 (38-126) U/L Troponin I <0.012 (0.000-0.034) ng/mL Total Protein 7.2 (6.3-8.2) g/dL Albumin 4.5 (3.5-5.0) g/dL Urine Opiates Screen (NotDetected) Ur Oxycodone Screen (NotDetected) Urine Methadone Screen (NotDetected) Ur Barbiturates Screen (NotDetected) U Tricyclic Antidepress (NotDetected) Ur Phencyclidine Scrn (NotDetected) Ur Amphetamines Screen (NotDetected) U Methamphetamines Scrn (NotDetected) U Benzodiazepines Scrn (NotDetected) Urine Cocaine Screen (NotDetected) U Marijuana (THC) Screen (NotDetected) Influenza Type A (PCR) Not Detected (Not Detectd) Influenza Type B (PCR) Not Detected (Not Detectd) RSV (PCR) Not Detected (Not Detectd) SARS-CoV-2 (PCR) Not Detected (Not Detectd) Disposition <Nan Tsai - Last Filed: 04/30/24 14:49> <Jean Young - Last Filed: 02/04/24 21:33> <Alexis Horne - Last Filed: 02/05/24 03:22> Clinical Impression: Depression, Suicidal ideation, Anxiety Disposition: TRANSFER TO PSYCH HOSP/UNIT Condition: Stable Referrals: Grover Gomez MD [Primary Care Provider] - 1-2 days
[2024-02-04 15:59] LABS: Cocaine Screen,Urine Not Detected (NotDetected); Opiate Screen,Urine Not Detected (NotDetected); Phencyclidine Screen,Urine Not Detected (NotDetected); Urn Cannabinoid Scrn Not Detected (NotDetected)
[2024-02-04 16:00] LABS: Amphetamine Screen,Urine Not Detected (NotDetected); Barbiturate Screen,Urine Not Detected (NotDetected); Benzodiazepines Screen,Urine Not Detected (NotDetected); Methadone Screen, Urine Not Detected (NotDetected); Oxycodone Screen, Urine Not Detected (NotDetected); Tricyclic Antidepressant,Urine Not Detected (NotDetected)
[2024-02-04 16:05] LABS: Basophils # (A) 0.1 k/uL (0-0.2); Basophils % (A) 1 %; Eosinophils # (A) 0.2 k/uL (0-0.7); Eosinophils % (A) 2 %; HCT 42.6 % (39.0-53.0); HGB 14.1 gm/dL (13.0-17.5); Lymphocytes # (A) 1.4 k/uL (1.0-4.8); Lymphocytes % (A) 20 %; MCH 31.7 pg (25.0-35.0); MCHC 33.2 g/dL (31.0-37.0); MCV 95.6 fL (80.0-100.0); Mean Platelet Volume 8.2; Monocytes # (A) 0.6 k/uL (0-1.0); Monocytes % (A) 8 %; Neutrophils # (A) 4.6 k/uL (1.3-7.7); Neutrophils % (A) 65 %; Platelet Count 238 k/uL (150-450); RBC 4.46 m/uL (4.30-5.90); RDW 12.6 % (11.5-15.5); WBC 7.1 k/uL (3.8-10.6)
[2024-02-04 16:14] LABS: INR 1.4 (<1.2); Partial Thromboplastin Time 24.5 sec (22.0-30.0); Prothrombin Time 14.2 sec (10.0-12.5)
[2024-02-04 16:16] LABS: ALT 22 U/L (4-49); African American GFR (CKD) >90 (>60 ml/min/1.73 sqM); Albumin 4.5 g/dL (3.5-5.0); Anion Gap 7 mmol/L; Blood Urea Nitrogen 18 mg/dL (9-20); Calcium 9.2 mg/dL (8.4-10.2); Carbon Dioxide 23 mmol/L (22-30); Chloride 112 mmol/L (98-107); Glucose 90 mg/dL (74-99); Non-African American GFR(CKD) 86 (>60 ml/min/1.73 sqM); Sodium 142 mmol/L (137-145); Total Bilirubin 0.6 mg/dL (0.2-1.3); Total Protein 7.2 g/dL (6.3-8.2)
[2024-02-04 16:21] LABS: AST 26 U/L (17-59); Alkaline Phosphatase 49 U/L (38-126); Magnesium 1.9 mg/dL (1.6-2.3); Potassium 4.3 mmol/L (3.5-5.1)
--- NOTE | 2024-02-04 16:51 | XR ---
EXAMINATION TYPE: XR chest 2V DATE OF EXAM: 02/04/2024 COMPARISON: 01/22/2024 INDICATION: Chest pain and chest tightness TECHNIQUE: Frontal and lateral views of the chest are obtained. FINDINGS: The heart size is normal. The pulmonary vasculature is normal. The lungs are clear. IMPRESSION: 1. No acute pulmonary process.
[2024-02-04] MEDS: ACETAMINOPHEN TAB 500 MG TAB PO STA (21:51)
[2024-02-05] MEDS: LORazepam 1 MG TAB PO STA (00:21)
[2024-02-05] MEDS: LOSARTAN 50 MG TAB PO SCH (02:19)
[2024-02-05] MEDS: busPIRone HCl 5 MG TAB PO SCH (02:19)
[2024-02-05] MEDS: WARFARIN 5 MG TAB PO ONE ×2 (02:20→18:13)
[2024-02-05] MEDS ORDERED: HALOPERIDOL LACTATE 5 MG/ML 1 ML VIAL IM PRN (02:47)
[2024-02-05] MEDS ORDERED: IBUPROFEN 600 MG TAB PO PRN (02:47)
[2024-02-05] MEDS ORDERED: hydrOXYzine HCL 50 MG/ML 1 ML VIAL IM PRN (02:47)
[2024-02-05] MEDS ORDERED: LORazepam 2 MG/ML INJ IM PRN (02:47)
[2024-02-05] MEDS ORDERED: MAGNESIUM HYDROXIDE 2,400 MG/30 ML CUP PO PRN (02:47)
[2024-02-05] MEDS ORDERED: traZODone HCL 50 MG TAB PO PRN (02:47)
[2024-02-05] MEDS: hydrOXYzine HCL 25 MG TAB PO PRN (02:56)
[2024-02-05] MEDS: hydrOXYzine HCL 25 MG TAB PO SCH (03:04)
[2024-02-05] MEDS: DULoxetine HCL 20 MG CAPSULE.DR PO SCH (08:07)
[2024-02-05] MEDS: PRAVASTATIN SODIUM 80 MG TAB PO SCH (08:07)
[2024-02-05] MEDS: LORazepam 1 MG TAB PO PRN (09:32)
[2024-02-05 11:41] LABS: INR 1.3 (<1.2); Prothrombin Time 13.6 sec (10.0-12.5)
[2024-02-05] MEDS: PROPRANOLOL 10 MG TAB PO PRN (12:44)
--- NOTE | 2024-02-05 13:53 | P.HP ---
Psychiatric H&P - . H&P Date: 02/05/24 History & Physical: Allergies Allergy/AdvReac Type Severity Reaction Status Date / Time No Known Allergies Allergy Verified 02/04/24 17:54 Vital Signs Temp 97.7 F 02/05/24 06:46 Pulse 84 02/05/24 06:46 Resp 16 02/05/24 06:46 BP 125/75 02/05/24 06:46 Pulse Ox 96 02/05/24 03:16 FiO2 Intake & Output 02/04/24 02/05/24 02/05/24 18:59 06:59 18:59 Weight 85.275 kg 85.275 kg Laboratory Last Values WBC 7.1 k/uL (3.8-10.6) 02/04/24 15:55 RBC 4.46 m/uL (4.30-5.90) 02/04/24 15:55 Hgb 14.1 gm/dL (13.0-17.5) 02/04/24 15:55 Hct 42.6 % (39.0-53.0) 02/04/24 15:55 MCV 95.6 fL (80.0-100.0) 02/04/24 15:55 MCH 31.7 pg (25.0-35.0) 02/04/24 15:55 MCHC 33.2 g/dL (31.0-37.0) 02/04/24 15:55 RDW 12.6 % (11.5-15.5) 02/04/24 15:55 Plt Count 238 k/uL (150-450) 02/04/24 15:55 MPV 8.2 02/04/24 15:55 Neutrophils % 65 % 02/04/24 15:55 Lymphocytes % 20 % 02/04/24 15:55 Monocytes % 8 % 02/04/24 15:55 Eosinophils % 2 % 02/04/24 15:55 Basophils % 1 % 02/04/24 15:55 Neutrophils # 4.6 k/uL (1.3-7.7) 02/04/24 15:55 Lymphocytes # 1.4 k/uL (1.0-4.8) 02/04/24 15:55 Monocytes # 0.6 k/uL (0-1.0) 02/04/24 15:55 Eosinophils # 0.2 k/uL (0-0.7) 02/04/24 15:55 Basophils # 0.1 k/uL (0-0.2) 02/04/24 15:55 PT 14.2 sec (10.0-12.5) H 02/04/24 15:55 INR 1.4 (<1.2) H 02/04/24 15:55 APTT 24.5 sec (22.0-30.0) 02/04/24 15:55 Sodium 142 mmol/L (137-145) 02/04/24 15:55 Potassium 4.3 mmol/L (3.5-5.1) 02/04/24 15:55 Chloride 112 mmol/L (98-107) H 02/04/24 15:55 Carbon Dioxide 23 mmol/L (22-30) 02/04/24 15:55 Anion Gap 7 mmol/L 02/04/24 15:55 BUN 18 mg/dL (9-20) 02/04/24 15:55 Creatinine 0.96 mg/dL (0.66-1.25) 02/04/24 15:55 Est GFR (CKD-EPI)AfAm >90 (>60 ml/min/1.73 sqM) 02/04/24 15:55 Est GFR (CKD-EPI)NonAf 86 (>60 ml/min/1.73 sqM) 02/04/24 15:55 Glucose 90 mg/dL (74-99) 02/04/24 15:55 Calcium 9.2 mg/dL (8.4-10.2) 02/04/24 15:55 Magnesium 1.9 mg/dL (1.6-2.3) 02/04/24 15:55 Total Bilirubin 0.6 mg/dL (0.2-1.3) 02/04/24 15:55 AST 26 U/L (17-59) 02/04/24 15:55 ALT 22 U/L (4-49) 02/04/24 15:55 Alkaline Phosphatase 49 U/L (38-126) 02/04/24 15:55 Troponin I <0.012 ng/mL (0.000-0.034) 02/04/24 15:55 Total Protein 7.2 g/dL (6.3-8.2) 02/04/24 15:55 Albumin 4.5 g/dL (3.5-5.0) 02/04/24 15:55 Urine Opiates Screen Not Detected (NotDetected) 02/04/24 15:39 Ur Oxycodone Screen Not Detected (NotDetected) 02/04/24 15:39 Urine Methadone Screen Not Detected (NotDetected) 02/04/24 15:39 Ur Barbiturates Screen Not Detected (NotDetected) 02/04/24 15:39 U Tricyclic Antidepress Not Detected (NotDetected) 02/04/24 15:39 Ur Phencyclidine Scrn Not Detected (NotDetected) 02/04/24 15:39 Ur Amphetamines Screen Not Detected (NotDetected) 02/04/24 15:39 U Methamphetamines Scrn Not Detected (NotDetected) 02/04/24 15:39 U Benzodiazepines Scrn Not Detected (NotDetected) 02/04/24 15:39 Urine Cocaine Screen Not Detected (NotDetected) 02/04/24 15:39 U Marijuana (THC) Screen Not Detected (NotDetected) 02/04/24 15:39 Influenza Type A (PCR) Not Detected (Not Detectd) 02/05/24 01:15 Influenza Type B (PCR) Not Detected (Not Detectd) 02/05/24 01:15 RSV (PCR) Not Detected (Not Detectd) 02/05/24 01:15 SARS-CoV-2 (PCR) Not Detected (Not Detectd) 02/05/24 01:15 02/05/24 09:06 IDENTIFYING DATA: Patient is a 63-year-old male. Lives with his . Retired secondary school registrar. Has no kids HPI: Patient presented to the hospital on 02/03. As per EPS note, "Pt presents voluntary to EC (drove self to EC), /c c/o suicidal ideation /c a plan; "we have knives. I have dark thoughts. Back in October I had negative thoughts and was admitted to [place]. I can't do this anymore. I lost my father 20 years ago in June. I lost my mother in February. I was working through the grieving process and I was ashamed about parts of me. This morning I work up...everything is so negative. I need help. I'm begging for help. Why am I having these thoughts? I'm not myself. I have no personality." Pt denies HI, denies hallucinations and no delusional thoughts verbalized. Pt states he cannot keep himself safe if discharged from ." Upon todays assessment, patient states he was having negative, intrusive thoughts. He states that he has never had these thoughts ever before. He claims his anxiety is very high, and that he is depressed. He states that he was having suicidal thoughts, but no plan. Patient says that he has been treated for grief, due to the loss of his father and mother, and some of his homework was writing a letter to his father, who he claims was not a good father. Denies marital problems, and financial problems. Patient does claim that he has high levels of anxiety throughout the day and has a lot of checking behaviors of his garage worried about safety. He states that his sleep is not very good, and he does not have a good appetite. Patient denies any suicidal or homicidal ideations intent or plan. At this time patient denies any auditory or visual hallucinations. Patient denies any flight of ideas but indorses racing thoughts and has increased in goal directed behavior. Patient denies using any substances. PAST PSYCHIATRIC HISTORY: Patient states that in October he was admitted to the psych floor in [place] for 10 days. Patient follows up through [facility]. Sees [facility] as his therapist helio Novak NP. Denies any previous suicide attempt. PMH:As per ER note ALLERGIES: as per EMR CHEMICAL DEPENDENCY HISTORY: as per HPI FAMILY PSYCHIATRIC/SUBSTANCE USE HISTORY: Denies SOCIAL HISTORY: Patient was born and raised in [place], [place], has a masters degree in education. , no children. Lives in a house with his . Retired from teaching. Denies legal problems. MENTAL STATUS EXAM: General Appearance: Patient appears to be stated age, is alert, directable, and attempts to cooperate. Patient appears to have adequate hygiene and grooming. Clean cut, groomed kowalski, wearing his own clothes and glasses. Behavior: Patient is seated without any agitated behavior. Cooperative Speech: Patient's speech is fluent and nonpressured. Mood/Affect: Patient reports their mood is depressed and anxious, affect is congruent and constricted. Suicidality/Homicidality: Patient denies having any homicidal ideation intent or plan. Denies any suicidal ideations intent or plan Perceptions: Patient denies any visual hallucinations and denies any auditory hallucinations Though content/process: There is no evidence of any delusional thought content and thought process is linear and goal-directed. [place] Memory and concentration: AOX3, grossly intact for the purposes of this session. Can spell "WORLD" backwards Judgment and insight: Fair STRENGTHS/WEAKNESSES: strength is that patient is resilient. Weakness is that patient has poor judgment and is impulsive INTELLECT: Average IMPRESSIONS: major depressive disorder, severe, without psychotic features anxiety disorder, unspecified, R/o OCD versus generalized anxiety disorder PLAN: -Patient is admitted under voluntary status to MHU for stabilization of psychiatric symptoms and safety. Patient has signed adult voluntary form and medication consent and is placed in patient's chart. -Medications : Will start patient on Zoloft 50mg daily for mood/anxiety, Geodon 40mg qhs for mood stabilization/racing thoughts, Visteral 25mg BID for anxiety. -ordered EKG -Ativan and Haldol PRN for agitation/aggression -Patient was informed of the risks, benefits and side effects of the medication and patient verbally consented to taking the medications. -Internal Medicine consult to perform medical evaluation and physical. -NRT -nicotine patch -SW on board for discharge planning. Encourage patient to participate in groups to work on coping skills.
[2024-02-05] MEDS: SERTRALINE 50 MG TAB PO SCH (15:20)
[2024-02-05] MEDS ORDERED: WARFARIN 5 MG TAB PO SCH (18:00)
[2024-02-05] MEDS: haloperidoL 5 MG TAB PO PRN (18:13)
[2024-02-05] MEDS: MAG HYDROX/AL HYDROX/SIMETH 355 ML BOTTLE PO PRN (18:49)
[2024-02-05] MEDS: ZIPRASIDONE 40 MG CAP PO SCH (20:23)
[2024-02-05] MEDS: hydrOXYzine pamoate 25 MG CAP PO SCH (20:23)
--- NOTE | 2024-02-06 01:23 | P.PN ---
Progress Note - Text Progress Note Date: 02/06/24 Attempted to see the patient in the mental health unit on 02/04 at 1999. The patient refused to be seen or be evaluated.
[2024-02-06 08:47] LABS: INR 1.3 (<1.2); Prothrombin Time 13.5 sec (10.0-12.5)
[2024-02-06 09:06] LABS: ALT 25 U/L (4-49); AST 26 U/L (17-59); Albumin 4.4 g/dL (3.5-5.0); Alkaline Phosphatase 52 U/L (38-126); Bilirubin, Delta 0.2 mg/dL (0.0-0.2); Bilirubin,Unconjugated 0.3 mg/dL (0.0-1.1); Total Bilirubin 0.5 mg/dL (0.2-1.3)
--- NOTE | 2024-02-06 11:34 | P.PN ---
Progress Note - Text Progress Note Date: 02/06/24 Interval History: Patient was seen wandering the hallways and was directable and agreeable to sp yazmin with technical writer and editor in the office. 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 Patient is endorsing high anxiety, and depression. He feels hopeless, due to these intrusive thoughts, and he does not know why he is having these thoughts. Torpedo Shooter explained different medication options, patient agreeable to try different medication. Patient is going to groups, and his appetite is good. He is sleeping at night. At this time patient denies any suicidal or homicidal ideations, intent or plan. Patient denies any auditory, visual hallucinations and denies any paranoia or delusions. Patient denies any side effects from the medications and has been compliant with meds. MENTAL STATUS EXAM: General Appearance: Patient appears to be stated age, is alert, directable, and attempts to cooperate. Patient appears to have adequate hygiene and grooming. Clean cut, groomed kowalski, wearing his own clothes and glasses. Behavior: Patient is seated without any agitated behavior. Cooperative Speech: Patient's speech is fluent and nonpressured. Mood/Affect: Patient reports their mood is depressed and anxious, affect is congruent and constricted. Improving mildly Suicidality/Homicidality: Patient denies having any homicidal ideation intent or plan. Denies any suicidal ideations intent or plan Perceptions: Patient denies any visual hallucinations and denies any auditory hallucinations Though content/process: There is no evidence of any delusional thought content and thought process is linear and goal-directed. [place], improving mildly. Continues to have negative intrusive thoughts sexual/violent. Memory and concentration: AOX3, grossly intact for the purposes of this session. Judgment and insight: Fair IMPRESSIONS: major depressive disorder, severe, without psychotic features anxiety disorder, unspecified, R/o OCD versus generalized anxiety disorder PLAN: -Patient is admitted under voluntary status to MHU for stabilization of psychiatric symptoms and safety. Patient has signed adult voluntary form and medication consent and is placed in patient's chart. -Medications : increase Zoloft 100mg daily for mood/anxiety, d/c Geodon, increase Visteral 50mg BID for anxiety. add Invega 3mg po qhs for psychosis/intrusive thoughts will continue to titrate as needed -Torpedo Shooter reviewed EKG -Ativan and Haldol PRN for agitation/aggression -NRT -nicotine patch -SW on board for discharge planning. Encourage patient to participate in groups to work on coping skills. Likely discharge next week if patient continues to improve.
[2024-02-06] MEDS: ACETAMINOPHEN TAB 325 MG TAB PO PRN (14:54)
[2024-02-06 15:42] LABS: Chol/HDL Ratio 5.67 Ratio; LDL Cholesterol,Calculated 118.4 mg/dL (0.0-131.0)
[2024-02-06] MEDS: WARFARIN 5 MG TAB PO ONE (17:34)
[2024-02-06] MEDS ORDERED: WARFARIN 5 MG TAB PO SCH (18:00)
[2024-02-06] MEDS: hydrOXYzine pamoate 25 MG CAP PO SCH (20:16)
[2024-02-06] MEDS: PALIPERIDONE 3 MG TAB.ER.24 PO SCH (20:16)
--- NOTE | 2024-02-07 04:54 | P.PN ---
Progress Note - Text Progress Note Date: 02/07/24 Attempted to see the patient on the MHU. The patient refused to be seen or be evaluated.
[2024-02-07] MEDS: SERTRALINE 100 MG TAB PO SCH (08:16)
[2024-02-07] MEDS: PALIPERIDONE 3 MG TAB.ER.24 PO SCH (12:12)
--- NOTE | 2024-02-07 12:18 | P.PN ---
Progress Note - Text Progress Note Date: 02/07/24 Interval History: Patient was seen wandering the hallways and was directable and agreeable to nahum arce with headline writer in the office. 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 He states he feels those thoughts are frozen in his brain, and that he does not know why he is having these feelings, because he would never do anything like that. Patient is endorsing very high anxiety, and depression. He feels hopeless, due to these intrusive thoughts, and he does not know why he is having these thoughts. Patient is going to groups, but claims to have problems concentrating due to intrusive thought. He claims his appetite is good. He is sleeping at night. At this time patient denies any suicidal or homicidal ideations, intent or plan. Patient denies any auditory, visual hallucinations and denies any paranoia or delusions. Patient denies any side effects from the medications and has been compliant with meds. MENTAL STATUS EXAM: General Appearance: Patient appears to be stated age, is alert, directable, and attempts to cooperate. Patient appears to have adequate hygiene and grooming. Clean cut, groomed kowalski, wearing his own clothes and glasses. Behavior: Patient is seated without any agitated behavior. Cooperative Speech: Patient's speech is fluent and nonpressured. Mood/Affect: Patient reports their mood is depressed and anxious, affect is congruent and constricted. Improving mildly Suicidality/Homicidality: Patient denies having any homicidal ideation intent or plan. Denies any suicidal ideations intent or plan Perceptions: Patient denies any visual hallucinations and denies any auditory hallucinations Though content/process: There is no evidence of any delusional thought content and thought process is linear and goal-directed. [place], improving mildly. Continues to have negative intrusive thoughts sexual/violent. Memory and concentration: AOX3, grossly intact for the purposes of this session. Judgment and insight: Fair IMPRESSIONS: major depressive disorder, severe, without psychotic features anxiety disorder, unspecified, R/o OCD versus generalized anxiety disorder PLAN: -Patient is admitted under voluntary status to MHU for stabilization of psychiatric symptoms and safety. Patient has signed adult voluntary form and medication consent and is placed in patient's chart. -Medications : Zoloft 100mg daily for mood/anxiety, Visteral 50mg BID for anxiety. increase Invega 3mg po bid for psychosis/intrusive thoughts will continue to titrate as needed, increase buspar 10mg PO tid for anxiety -Ativan and Haldol PRN for agitation/aggression -NRT -nicotine patch -SW on board for discharge planning. Encourage patient to participate in groups to work on coping skills. Likely discharge next week if patient continues to improve.
[2024-02-07 12:44] LABS: INR 1.2 (<1.2); Prothrombin Time 13.1 sec (10.0-12.5)
[2024-02-07] MEDS: busPIRone HCl 10 MG TAB PO SCH (16:16)
[2024-02-07] MEDS: WARFARIN 7.5 MG TAB PO ONE (18:17)
[2024-02-07] MEDS: traZODone HCL 50 MG TAB PO PRN (20:44)
--- NOTE | 2024-02-08 00:34 | P.CONS ---
History of Present Illness - Reason for Consult Consult date: 02/08/24 - History of Present Illness The patient is a 63-year-old male with a PMH of hypertension, hyperlipidemia, and history of DVT on Coumadin who presents to the emergency room with complaints of anxiety and some suicidal ideation. The patient was admitted to the mental health unit where he was seen and evaluated. The patient denies tobacco, alcohol, or substance use. He also denies any physical complaints at the time of interview. 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 Review of systems: Pertinent positives and negatives as discussed in HPI, a complete review of systems was performed and all other systems are negative. Physical examination: General: non toxic, no distress, appears at stated age, overweight Derm: no unusual rashes/lesions, no unusual ecchymoses, warm, dry Head: atraumatic, normocephalic, symmetric Eyes: EOMI, no lid lag, anicteric sclera ENT: Nose and ears atraumatic, no thrush, no pharyngeal erythema Neck: trachea midline, supple Mouth: no lip lesion, mucus membranes moist Cardiovascular: S1S2 reg, no murmur, no edema Lungs: CTA bilateral, no rhonchi, no rales , no accessory muscle use Abdominal: soft, nontender to palpation, no guarding Ext: no gross muscle atrophy, no contractures, Neuro: No gross focal neuro deficits noted Psych: Alert, oriented, appropriate affect Assessment: History of DVT and PE, subtherapeutic INR Chronic conditions: Hypertension, hyperlipidemia Anxiety and depression with suicidal ideation Imaging: Chest x-ray was unremarkable with EKG showing normal sinus rhythm at 84 bpm as reviewed by me. Data Review: Laboratory evaluation revealed INR 1.4, chloride 112, respiratory viral panel unremarkable Plan: Coumadin dosing per pharmacy and patient may need adjusted home dosing Continue remaining home medications Defer management of anxiety and depression to primary psychiatry service Thank you for allowing us to participate in the care of this patient. We will follow peripherally. Do not hesitate to contact us with questions. Someone can be reached from the [facility] hospitalist group at all hours of the day at [phone]. Past Medical History Past Medical History: Deep Vein Thrombosis (DVT), Hypertension, Pulmonary Embolus (PE) Additional Past Medical History / Comment(s): dvt rt thigh & PE x 2-2012, kidney stones History of Any Multi-Drug Resistant Organisms: None Reported Past Surgical History: Hernia Repair Additional Past Surgical History / Comment(s): varicose vein stripping,double h ernia repair Aug 2014 Past Anesthesia/Blood Transfusion Reactions: No Reported Reaction Past Psychological History: Anxiety Smoking Status: Never smoker Past Alcohol Use History: Occasional Past Drug Use History: None Reported - Past Family History Father Family Medical History: Cancer, Deep Vein Thrombosis (DVT) Additional Family Medical History / Comment(s): prostate Mother Family Medical History: Cancer Additional Family Medical History / Comment(s): breast Sister(s) Family Medical History: Cancer Additional Family Medical History / Comment(s): breast Medications and Allergies Home Medications Medication Instructions Recorded Confirmed Type Losartan [Cozaar] 50 mg PO BID 12/10/14 02/04/24 History Pravastatin Sodium [Pravachol] 80 mg PO DAILY 10/11/23 02/04/24 History Warfarin [Coumadin] 5 mg PO SUMOTUTHFR@1800 10/11/23 02/04/24 History Warfarin [Coumadin] 10 mg PO WESA@1800 10/11/23 02/04/24 History Propranolol [Inderal] 10 mg PO BID PRN 01/22/24 02/04/24 History hydrOXYzine HCL [Atarax] 25 mg PO TID 01/22/24 02/04/24 History DULoxetine HCL [Cymbalta] 20 mg PO DAILY 02/04/24 02/04/24 History busPIRone HCl [Buspar] 5 mg PO TID 02/04/24 02/04/24 History Allergies Allergy/AdvReac Type Severity Reaction Status Date / Time No Known Allergies Allergy Verified 02/04/24 17:54 Physical Exam Vitals: Vital Signs Temp Pulse Resp BP Pulse Ox 02/07/24 12:14 117 H 119/83 02/07/24 08:15 96.3 F L 122 H 16 119/84 96 Results CBC & Chem 7: 02/04/24 15:55 02/04/24 15:55 Labs: Abnormal Lab Results - Last 24 Hours (Table) 02/07/24 Range/Units 12:03 PT 13.1 H (10.0-12.5) sec INR 1.2 H (<1.2)
[2024-02-08 11:53] LABS: INR 1.1 (<1.2); Prothrombin Time 12.1 sec (10.0-12.5)
--- NOTE | 2024-02-08 12:50 | P.PN ---
Progress Note - Text Progress Note Date: 02/08/24 Interval history: Patient was seen wandering the hallways and was directable and agreeable to s peak with typewriter assembler. Patient states that he is doing a bit better today with regards to his thoughts, states that they are "calming down a little bit". Claims that he feels the Invega has been helping him. He did state that he is feeling a bit tired today during the day. We spoke about changing the dosing schedule of his medications which she is okay with. Claims that he was visited by his today which went well. Claims that he is trying to stay hopeful going to groups, thinking positive. Claims that anxiety and mood have been gradually improving, states that he slowly slept fairly throughout the night. At this time patient denies any suicidal or homicidal ideations intent or plan. Denies any Auditory or visual hallucinations. Patient denies any side effects from the medications and has been compliant with meds. Mental status exam: General Appearance: Patient appears to be wearing glasses, stated age is alert, directable, and cooperative. Behavior: No agitated behavior. Patient is calm and directable, more cooperative today. Speech: Patient's speech is fluent and nonpressured. Mood/Affect: Mood is improving mildly, affect is congruent and constricted. [place] mildly Suicidality/Homicidality: Patient denies having any suicidal or homicidal ideation intent or plan. Perceptions: Patient denies any auditory or visual hallucinations. Though content/process: There is no evidence of any delusional thought content and thought process is linear and goal-directed. Less focused on the intrusive thoughts today. Less anxiety. Memory and concentration: AOX3, grossly intact for the purposes of this session Judgment and insight: improving mildly Assessment/Plan: Continue with current diagnosis. Patient continues to meet criteria for inpatient psychiatric admission for symptom stabilization and safety. Patient will be maintained on current psychotropic medication regimen with the exception of changing the dosing schedule of Invega p.o. to 6 mg nightly and also will change Zoloft to nighttime dosing, will give an additional 50 mg tonight and increased to 150 mg total for tomorrow night. Monitor for medication compliance and for any psychotropic medication side effects. Will continue to monitor ongoing response to treatment. Encouraged participation in milieu.
[2024-02-08] MEDS: WARFARIN 10 MG TAB PO ONE (18:16)
[2024-02-08] MEDS: PALIPERIDONE 6 MG TAB.ER.24 PO SCH (20:13)
[2024-02-08] MEDS: SERTRALINE 50 MG TAB PO ONE (20:14)
[2024-02-09 08:59] LABS: INR 1.2 (<1.2)
--- NOTE | 2024-02-09 11:33 | P.PN ---
Progress Note - Text Progress Note Date: 02/09/24 Interval history: Patient was seen wandering the hallways and was directable and agreeable to s peak with telegraphic typewriter operator chief. Patient claims that he had a good day yesterday and had less intrusive thoughts however today he states that "they are back again" and states that they are thoughts of harming certain people in his past. He states that they are also sexual in nature. He claims that they are causing high levels of anxiety for him. He was asking for a as needed medication at this time and was agreeable to try Zyprexa. He states that last night he had difficulties with sleep as the thoughts came back to him. He was agreeable to have his trazodone increased and BuSpar increased. We spoke more about the medications and the difficulty of treating this specific diagnosis, he was very understanding, states that he is motivated to get better. Claims that his mood is still mildly depressed. At this time patient denies any suicidal or homicidal ideations intent or plan. Denies any Auditory or visual hallucinations. Patient denies any side effects from the medications and has been compliant with meds. Mental status exam: General Appearance: Patient appears to be wearing glasses, stated age is alert, directable, and cooperative. Behavior: No agitated behavior. Patient is calm and directable, more cooperative today. Speech: Patient's speech is fluent and nonpressured. Mood/Affect: Mood is anxious and depressed, affect is congruent and constricted. Suicidality/Homicidality: Patient denies having any suicidal or homicidal ideation intent or plan. Perceptions: Patient denies any auditory or visual hallucinations. Though content/process: There is no evidence of any delusional thought content and thought process is linear and goal-directed. Continues to focus on intrusive thoughts. Medication seeking Memory and concentration: AOX3, grossly intact for the purposes of this session Judgment and insight: improving mildly Assessment/Plan: Continue with current diagnosis. Patient continues to meet criteria for inpatient psychiatric admission for symptom stabilization and safety. Patient will be maintained on current psychotropic medication regimen with the exception of increasing BuSpar to 20 mg 3 times daily, will be on 150 mg nightly of Zoloft tonight. Patient is agreeable to try Zyprexa as needed 1 dose at this time. Monitor for medication compliance and for any psychotropic medication side effects. Will continue to monitor ongoing response to treatment. Encouraged participation in milieu.
[2024-02-09] MEDS: OLANZapine 5 MG TAB PO ONE (11:57)
[2024-02-09] MEDS: busPIRone HCl 10 MG TAB PO SCH (16:33)
[2024-02-09] MEDS: WARFARIN 10 MG TAB PO ONE (17:44)
[2024-02-09] MEDS: SERTRALINE 50 MG TAB PO SCH (20:52)
[2024-02-09] MEDS: traZODone HCL 100 MG TAB PO PRN (20:54)
--- NOTE | 2024-02-10 11:41 | P.PN ---
Progress Note - Text Progress Note Date: 02/10/24 Interval History: Patient was seen in group, and was directable and agreeable to speak with margarito ferguson in the office. Patient states that he is doing a little better today. patient was seen participating with others in group today. He claims that his intrusive thoughts are still coming and going, and are less disturbing. Patient is still endorsing some anxiety. Patient is going to groups. He claims his appetite is good. He is sleeping at night. At this time patient denies any suicidal or homicidal ideations, intent or plan. Patient denies any auditory, visual hallucinations and denies any paranoia or delusions. Patient denies any side effects from the medications and has been compliant with meds. MENTAL STATUS EXAM: General Appearance: Patient appears to be stated age, is alert, directable, and attempts to cooperate. Patient appears to have adequate hygiene and grooming. Clean cut, groomed kowalski, wearing his own clothes and glasses. Behavior: Patient is seated without any agitated behavior. Cooperative Speech: Patient's speech is fluent and nonpressured. Mood/Affect: Patient reports their mood is improving, but still anxious, affect is congruent and constricted. Improving mildly Suicidality/Homicidality: Patient denies having any homicidal ideation intent or plan. Denies any suicidal ideations intent or plan Perceptions: Patient denies any visual hallucinations and denies any auditory hallucinations Though content/process: There is no evidence of any delusional thought content and thought process is linear and goal-directed. [place], improving mildly. Continues to have negative intrusive thoughts sexual/violent. mildly improving Memory and concentration: AOX3, grossly intact for the purposes of this session. Judgment and insight: Fair IMPRESSIONS: major depressive disorder, severe, without psychotic features anxiety disorder, unspecified, R/o OCD versus generalized anxiety disorder PLAN: -Patient is admitted under voluntary status to MHU for stabilization of psychiatric symptoms and safety. Patient has signed adult voluntary form and medication consent and is placed in patient's chart. -Medications : increase Zoloft 200mg qhsfor mood/anxiety, Visteral 50mg BID for anxiety. Invega 6mg po qhs for psychosis/intrusive thoughts will continue to titrate as needed, buspar 20mg PO tid for anxiety -Ativan and Haldol PRN for agitation/aggression -NRT -nicotine patch -SW on board for discharge planning. Encourage patient to participate in groups to work on coping skills. Likely discharge vs Saturday is patient psychiatrically improves
[2024-02-10 12:47] LABS: INR 1.4 (<1.2); Prothrombin Time 14.2 sec (10.0-12.5)
[2024-02-10] MEDS: WARFARIN 7.5 MG TAB PO ONE (17:57)
[2024-02-10] MEDS: SERTRALINE 100 MG TAB PO SCH (20:53)
[2024-02-11 11:31] LABS: INR 1.7 (<1.2); Prothrombin Time 17.3 sec (10.0-12.5)
--- NOTE | 2024-02-11 11:43 | P.PN ---
Progress Note - Text Progress Note Date: 02/11/24 Interval History: Patient was seen in group, and was directable and agreeable to speak with margarito ferguson in the office. Patient states that he is doing good today. Patient was seen participating with others in group today, playing games. Patient is still endorsing some anxiety. Patient is going to groups. He claims his appetite is good. He is sleeping good at night. He claims his intrusive thoughts are improving, much more today than yesterday. At this time patient denies any suicidal or homicidal ideations, intent or plan. Patient denies any auditory, visual hallucinations and denies any paranoia or delusions. Patient denies any side effects from the medications and has been compliant with meds. MENTAL STATUS EXAM: General Appearance: Patient appears to be stated age, is alert, directable, and attempts to cooperate. Patient appears to have adequate hygiene and grooming. Clean cut, groomed kowalski, wearing his own clothes and glasses. Behavior: Patient is seated without any agitated behavior. Cooperative Speech: Patient's speech is fluent and nonpressured. Mood/Affect: Patient reports their mood is improving, but still anxious, affect is congruent and constricted. Improving mildly Suicidality/Homicidality: Patient denies having any homicidal ideation intent or plan. Denies any suicidal ideations intent or plan Perceptions: Patient denies any visual hallucinations and denies any auditory hallucinations Though content/process: There is no evidence of any delusional thought content and thought process is linear and goal-directed. [place], improving mildly. Continues to have negative intrusive thoughts sexual/violent. mildly improving Memory and concentration: AOX3, grossly intact for the purposes of this session. Judgment and insight: Fair IMPRESSIONS: major depressive disorder, severe, without psychotic features anxiety disorder, unspecified, R/o OCD versus generalized anxiety disorder PLAN: -Patient is admitted under voluntary status to MHU for stabilization of psychiatric symptoms and safety. Patient has signed adult voluntary form and medication consent and is placed in patient's chart. -Medications : continue with Zoloft 200mg qhs for mood/anxiety, Visteral 50mg BID for anxiety. Invega 6mg po qhs for psychosis/intrusive thoughts will continue to titrate as needed, buspar 20mg PO tid for anxiety -Car Repairman reviewed EKG -Ativan and Haldol PRN for agitation/aggression -NRT -nicotine patch -SW on board for discharge planning. Encourage patient to participate in groups to work on coping skills. Likely discharge if patient psychiatrically improves
[2024-02-11 15:14] VITALS: BMI 26.7
[2024-02-11] MEDS: WARFARIN 5 MG TAB PO ONE (18:13)
[2024-02-12 07:31] VITALS: PULSE 89; RESP 16; TEMP 98.1
[2024-02-12 09:05] VITALS: BP 136/72
--- NOTE | 2024-02-12 12:03 | P.DS ---
Providers Date of admission: 02/05/24 02:40 Expected date of discharge: 02/12/24 Attending physician: Rod Duque MD Consults: 02/05/24 02:47 Consult Physician Routine Consulting Provider: Marie Auguste Consult Reason/Comments: For H & P for Medical Follow Up Do you want consulting provider notified?: Yes Primary care physician: Grover Gomez - Discharge Diagnosis(es) (1) Major depressive disorder without psychotic features Current Visit: Yes Status: Acute Priority: High (2) Anxiety disorder Current Visit: Yes Status: Acute Priority: Medium (3) Obsessive compulsive disorder Current Visit: Yes Status: Acute Priority: High Hospital Course: Admission HPI: Admission note was completed by [song writer] "Patient presented to the hospital on 02/03. As per EPS note, "Pt presents voluntary to [facility] (drove self to [facility]), /c c/o suicidal ideation /c a plan; "we have knives. I have dark thoughts. Back in October I had negative thoughts and was admitted to [facility]. I can't do this anymore. I lost my father 20 years ago in June. I lost my mother in February. I was working through the grieving process and I was ashamed about parts of me. This morning I work up...everything is so negative. I need help. I'm begging for help. Why am I having these thoughts? I'm not myself. I have no personality." Pt denies HI, denies hallucinations and no delusional thoughts verbalized. Pt states he cannot keep himself safe if discharged from EC." Upon todays assessment, patient states he was having negative, intrusive thoughts. He states that he has never had these thoughts ever before. He claims his anxiety is very high, and that he is depressed. He states that he was having suicidal thoughts, but no plan. Patient says that he has been treated for grief, due to the loss of his father and mother, and some of his homework was writing a letter to his father, who he claims was not a good father. Denies marital problems, and financial problems. Patient does claim that he has high levels of anxiety throughout the day and has a lot of checking behaviors of his garage worried ab out safety. He states that his sleep is not very good, and he does not have a good appetite. Patient denies any suicidal or homicidal ideations intent or plan. At this time patient denies any auditory or visual hallucinations. Patient denies any flight of ideas but indorses racing thoughts and has increased in goal directed behavior. Patient denies using any substances." Hospital course: Upon admission to the unit patient was [directable and agreeable to commence treatment and signed adult voluntary form]. Patient got along well with other patients on the unit and followed unit protocol. Patient was compliant with the medications and denied any side effects throughout hospital course. Patient was started on [Zoloft increased to dose of 200 mg nightly for mood/anxiety, Vistaril 50 mg twice daily for anxiety, Invega 6 mg nightly for psychosis/intrusive thoughts, BuSpar 20 mg 3 times daily for anxiety]. Patient spoke of [his] stressors and engaged in therapy both group and individual. Patient was also seen by medical team for history and physical exam. [] Throughout the course of the hospitalization patient gradually improved with regards to [mood, anxiety], intrusive/negative thoughts, sleep and [became more future oriented with improved insight and judgment]. On the day of discharge patient denied any suicidal or homicidal ideations intent or plan denied any auditory or visual hallucinations. Patient endorsed wanting to live for his health and his future. The patient denied any access to guns or weapons. Patient denied any paranoia and did not endorse any delusions. Patient does not have a significant history of substance abuse [and] was counseled on abstaining from all substances including alcohol and marijuana. Patient was also counseled on the medications and need for regular compliance and was encouraged to follow-up with their outpatient appointment for mental health and also for primary care. [Prior to discharge a family meeting will be arranged by social welfare administrator to answer any questions and ensure safety upon discharge.] Mental status exam: General Appearance: Patient appears to be wearing glasses, stated age is alert, pleasant, and cooperative. Patient is in no acute distress and has improved hygiene and grooming Behavior: Patient is calmly seated without any agitated behavior. Speech: Patient's speech is fluent and nonpressured. Mood/Affect: Patient reports their mood is "good", affect is congruent and euthymic. Suicidality/Homicidality: Patient denies having any suicidal or homicidal ideation intent or plan. Perceptions: Patient denies any auditory or visual hallucinations. Though content/process: There is no evidence of any delusional thought content and thought process is linear and goal-directed. Memory and concentration: AOX3, grossly intact for the purposes of this session. Can spell "WORLD" backwards correctly. Judgment and insight: improved with guarded prognosis Impression: major depressive disorder, severe, without psychotic features anxiety disorder, unspecified OCD Plan: -Continue with discharge today as patient has improved and stabilized psychiatrically and is not currently an imminent threat to [himself] and/or others. -Continue medications: Zoloft 200 mg nightly for mood/anxiety, Vistaril 50 mg twice daily scheduled for anxiety, Invega 6 mg p.o. nightly for psychosis/intrusive thoughts, BuSpar 30 mg twice daily for anxiety. -Patient was counseled on the need for medication compliance and appropriate follow-up at mental health and also primary care for medical issues. Patient verbalized understanding and agreed. -Social work to help coordinate patients discharge today. Social work also to arrange for patients follow up appointments for psychiatric care along with follow up with primary care provider. -Patient counseled on abstaining from recreational drugs and marijuana and alcohol. Was informed/educated on the adverse effects on their physical and mental health. [Patient verbally agreed and understood]. -Patient was instructed to return to the hospital or seek immediate medical care if their psychiatric or medical symptoms do worsen or reoccur. Allergies Allergy/AdvReac Type Severity Reaction Status Date / Time No Known Allergies Allergy Verified 02/04/24 17:54 Laboratory Results WBC 7.1 k/uL (3.8-10.6) 02/04/24 15:55 RBC 4.46 m/uL (4.30-5.90) 02/04/24 15:55 Hgb 14.1 gm/dL (13.0-17.5) 02/04/24 15:55 Hct 42.6 % (39.0-53.0) 02/04/24 15:55 MCV 95.6 fL (80.0-100.0) 02/04/24 15:55 MCH 31.7 pg (25.0-35.0) 02/04/24 15:55 MCHC 33.2 g/dL (31.0-37.0) 02/04/24 15:55 RDW 12.6 % (11.5-15.5) 02/04/24 15:55 Plt Count 238 k/uL (150-450) 02/04/24 15:55 MPV 8.2 02/04/24 15:55 Neutrophils % 65 % 02/04/24 15:55 Lymphocytes % 20 % 02/04/24 15:55 Monocytes % 8 % 02/04/24 15:55 Eosinophils % 2 % 02/04/24 15:55 Basophils % 1 % 02/04/24 15:55 Neutrophils # 4.6 k/uL (1.3-7.7) 02/04/24 15:55 Lymphocytes # 1.4 k/uL (1.0-4.8) 02/04/24 15:55 Monocytes # 0.6 k/uL (0-1.0) 02/04/24 15:55 Eosinophils # 0.2 k/uL (0-0.7) 02/04/24 15:55 Basophils # 0.1 k/uL (0-0.2) 02/04/24 15:55 PT 17.3 sec (10.0-12.5) H 02/11/24 11:05 INR 1.7 (<1.2) H 02/11/24 11:05 APTT 24.5 sec (22.0-30.0) 02/04/24 15:55 Sodium 142 mmol/L (137-145) 02/04/24 15:55 Potassium 4.3 mmol/L (3.5-5.1) 02/04/24 15:55 Chloride 112 mmol/L (98-107) H 02/04/24 15:55 Carbon Dioxide 23 mmol/L (22-30) 02/04/24 15:55 Anion Gap 7 mmol/L 02/04/24 15:55 BUN 18 mg/dL (9-20) 02/04/24 15:55 Creatinine 0.96 mg/dL (0.66-1.25) 02/04/24 15:55 Est GFR (CKD-EPI)AfAm >90 (>60 ml/min/1.73 sqM) 02/04/24 15:55 Est GFR (CKD-EPI)NonAf 86 (>60 ml/min/1.73 sqM) 02/04/24 15:55 Glucose 90 mg/dL (74-99) 02/04/24 15:[address] Glu mg/dL 114 mg/dL 02/06/24 07:36 Hemoglobin A1c 5.6 % (<=6.0) 02/06/24 07:36 Calcium 9.2 mg/dL (8.4-10.2) 02/04/24 15:55 Magnesium 1.9 mg/dL (1.6-2.3) 02/04/24 15:55 Total Bilirubin 0.5 mg/dL (0.2-1.3) 02/06/24 07:36 Conjugated Bilirubin 0.0 mg/dL (0.0-0.3) 02/06/24 07:36 Unconjugated Bilirubin 0.3 mg/dL (0.0-1.1) 02/06/24 07:36 Delta Bilirubin 0.2 mg/dL (0.0-0.2) 02/06/24 07:36 AST 26 U/L (17-59) 02/06/24 07:36 ALT 25 U/L (4-49) 02/06/24 07:36 Alkaline Phosphatase 52 U/L (38-126) 02/06/24 07:36 Troponin I <0.012 ng/mL (0.000-0.034) 02/04/24 15:55 Total Protein 7.0 g/dL (6.3-8.2) 02/06/24 07:36 Albumin 4.4 g/dL (3.5-5.0) 02/06/24 07:36 Triglycerides 211.00 mg/dL (0.00-149.00) H 02/06/24 07:36 Cholesterol 195.00 mg/dL (0.00-200.00) 02/06/24 07:36 LDL Cholesterol, Calc 118.4 mg/dL (0.0-131.0) 02/06/24 07:36 VLDL Cholesterol, Calc 42.20 mg/dL (5.00-40.00) H 02/06/24 07:36 HDL Cholesterol 34.40 mg/dL (40.00-60.00) L 02/06/24 07:36 Cholesterol/HDL Ratio 5.67 Ratio 02/06/24 07:36 TSH 0.819 mIU/L (0.465-4.680) 02/06/24 07:36 Urine Opiates Screen Not Detected (NotDetected) 02/04/24 15:39 Ur Oxycodone Screen Not Detected (NotDetected) 02/04/24 15:39 Urine Methadone Screen Not Detected (NotDetected) 02/04/24 15:39 Ur Barbiturates Screen Not Detected (NotDetected) 02/04/24 15:39 U Tricyclic Antidepress Not Detected (NotDetected) 02/04/24 15:39 Ur Phencyclidine Scrn Not Detected (NotDetected) 02/04/24 15:39 Ur Amphetamines Screen Not Detected (NotDetected) 02/04/24 15:39 U Methamphetamines Scrn Not Detected (NotDetected) 02/04/24 15:39 U Benzodiazepines Scrn Not Detected (NotDetected) 02/04/24 15:39 Urine Cocaine Screen Not Detected (NotDetected) 02/04/24 15:39 U Marijuana (THC) Screen Not Detected (NotDetected) 02/04/24 15:39 Influenza Type A (PCR) Not Detected (Not Detectd) 02/05/24 01:15 Influenza Type B (PCR) Not Detected (Not Detectd) 02/05/24 01:15 RSV (PCR) Not Detected (Not Detectd) 02/05/24 01:15 SARS-CoV-2 (PCR) Not Detected (Not Detectd) 02/05/24 01:15 Vital Signs Temp 98.1 F 02/12/24 06:39 Pulse 89 02/12/24 06:39 Resp 16 02/12/24 06:39 BP 136/72 02/12/24 08:43 Pulse Ox 98 02/11/24 21:32 FiO2 Intake & Output 02/11/24 02/12/24 02/12/24 18:59 06:59 18:59 Weight 84.5 kg Patient Condition at Discharge: Stable Plan - Discharge Summary New Discharge Prescriptions: New Sertraline [Zoloft] 200 mg PO HS 30 Days #60 tab busPIRone HCL [Buspar] 30 mg PO BID 30 Days #60 tablet traZODone HCL [Desyrel] 100 mg PO HS PRN 30 Days #30 tab PRN Reason: Insomnia Paliperidone [Invega] 6 mg PO HS 30 Days #30 tab hydrOXYzine pamoate [Vistaril] 50 mg PO BID 30 Days #120 cap Continue Losartan [Cozaar] 50 mg PO BID Warfarin [Coumadin] 5 mg PO SUMOTUTHFR@1800 Warfarin [Coumadin] 10 mg PO WESA@1800 Pravastatin Sodium [Pravachol] 80 mg PO DAILY Propranolol [Inderal] 10 mg PO BID PRN PRN Reason: Anxiety Discontinued DULoxetine HCL [Cymbalta] 20 mg PO DAILY busPIRone HCl [Buspar] 5 mg PO TID hydrOXYzine HCL [Atarax] 25 mg PO TID Discharge Medication List Losartan [Cozaar] 50 mg PO BID 12/10/14 [History] Pravastatin Sodium [Pravachol] 80 mg PO DAILY 10/11/23 [History] Warfarin [Coumadin] 5 mg PO SUMOTUTHFR@1800 10/11/23 [History] Warfarin [Coumadin] 10 mg PO WESA@1800 10/11/23 [History] Propranolol [Inderal] 10 mg PO BID PRN 01/22/24 [History] Paliperidone [Invega] 6 mg PO HS 30 Days #30 tab 02/12/24 [Rx] Sertraline [Zoloft] 200 mg PO HS 30 Days #60 tab 02/12/24 [Rx] busPIRone HCL [Buspar] 30 mg PO BID 30 Days #60 tablet 02/12/24 [Rx] hydrOXYzine pamoate [Vistaril] 50 mg PO BID 30 Days #120 cap 02/12/24 [Rx] traZODone HCL [Desyrel] 100 mg PO HS PRN 30 Days #30 tab 02/12/24 [Rx] Follow up Appointment(s)/Referral(s): [facility] [Outside] - 02/13/24 12:00 pm (02-13-24 at 12:00 with Kenneth Teran 02-25-24 at 6:[address] Figueroa ) Grover Gomez MD [Primary Care Provider] - 1-2 days Patient Instructions/Handouts: Obsessive Compulsive Disorder (DC) Activity/Diet/Wound Care/Special Instructions: Avoid the use of street drugs and alcohol. Take all medications as prescribed. When you are in need of refills on your medications, please contact your medical provider and/or outpatient psychiatrist/provider to have this done. Please go to your scheduled outpatient appointment for aftercare treatment. If symptoms return or become worse, call the crisis line at and/or go to the nearest emergency room for evaluation. National Suicide Hotline 988 Discharge Disposition: HOME SELF-CARE
== END 2024-02-12 12:52 | disposition home or self-care (01) | DRG 885 ==
LOC: EC 13:26 → 3MHU 02-05 02:40
PROVIDERS: ADMIT Psychiatry & Neurology Psychiatry; ATTEND Psychiatry & Neurology Psychiatry
DX: F32.2 Major depressive disorder, single episode, severe without psychotic features (principal); R45.851 Suicidal ideations; E78.5 Hyperlipidemia, unspecified; F42.9 Obsessive-compulsive disorder, unspecified; R79.1 Abnormal coagulation profile; F41.9 Anxiety disorder, unspecified; I10 Essential (primary) hypertension; Z63.4 Disappearance and death of family member; Z79.01 Long term (current) use of anticoagulants; Z76.5 Malingerer [conscious simulation]; Z86.711 Personal history of pulmonary embolism; Z79.899 Other long term (current) drug therapy; Z86.718 Personal history of other venous thrombosis and embolism; Z87.442 Personal history of urinary calculi; Z71.3 Dietary counseling and surveillance; Z28.21 Immunization not carried out because of patient refusal; Z11.52 Encounter for screening for COVID-19
CPT/HCPCS: 36415; 71046; 80053; 80061; 80076; 80306; 82075; 83036; 83735; 84443; 84484; 85025; 85610; 85730; 87636; 93005; 99285

== ENCOUNTER 2024-03-10 09:13 | Inpatient (IN) | payer BC, MEDICAID ==
[2024-03-10 11:40] LABS: Amphetamine Screen,Urine Not Detected (NotDetected); Barbiturate Screen,Urine Not Detected (NotDetected); Benzodiazepines Screen,Urine Detected (NotDetected); Cocaine Screen,Urine Not Detected (NotDetected); Methadone Screen, Urine Not Detected (NotDetected); Opiate Screen,Urine Not Detected (NotDetected); Oxycodone Screen, Urine Not Detected (NotDetected); Phencyclidine Screen,Urine Not Detected (NotDetected); Tricyclic Antidepressant,Urine Not Detected (NotDetected); Urn Cannabinoid Scrn Not Detected (NotDetected)
[2024-03-10] MEDS: LORazepam 1 MG TAB PO STA (12:10)
--- NOTE | 2024-03-10 12:22 | ED ---
Psych HPI - General Chief Complaint: Psychiatric Symptoms Stated Complaint: mental health Time Seen by Provider: 03/10/24 09:25 Source: patient, RN notes reviewed Mode of arrival: ambulatory Limitations: no limitations - History of Present Illness Initial Comments: 63-year-old male presents emergency department chief complaint of depression, suicidal ideation, OCD issues. Patient states he was admitted proximally 1 month ago for similar complaints. He states these have intrusive thoughts which she states he wants to harm self he states most recently he had thoughts of harming his in which she does not want to do. The patient denies any illicit drug use no alcohol abuse. He states he was prescribed psychiatric medications are not helping. Denies any physical complaints. - Related Data Home Medications Medication Instructions Recorded Confirmed Losartan [Cozaar] 50 mg PO BID 12/10/14 03/10/24 Pravastatin Sodium [Pravachol] 80 mg PO DAILY 10/11/23 03/10/24 Warfarin [Coumadin] 5 mg PO SUMOTUTHFR@1800 10/11/23 03/10/24 Warfarin [Coumadin] 10 mg PO WESA@1800 10/11/23 03/10/24 LORazepam [Ativan] 0.5 mg PO DAILY PRN 03/10/24 03/10/24 Previous Rx's Medication Instructions Recorded Paliperidone [Invega] 6 mg PO HS 30 Days #30 tab 02/12/24 Sertraline [Zoloft] 200 mg PO HS 30 Days #60 tab 02/12/24 busPIRone HCL [Buspar] 30 mg PO BID 30 Days #60 tablet 02/12/24 hydrOXYzine pamoate [Vistaril] 50 mg PO BID 30 Days #120 cap 02/12/24 traZODone HCL [Desyrel] 100 mg PO HS PRN 30 Days #30 tab 02/12/24 Allergies Allergy/AdvReac Type Severity Reaction Status Date / Time No Known Allergies Allergy Verified 03/10/24 09:22 Review of Systems ROS Statement: Those systems with pertinent positive or pertinent negative responses have been documented in the HPI. ROS Other: All systems not noted in ROS Statement are negative. Past Medical History Past Medical History: Deep Vein Thrombosis (DVT), Hypertension, Pulmonary Embolus (PE) Additional Past Medical History / Comment(s): dvt rt thigh & PE x 2-2012, kidney stones History of Any Multi-Drug Resistant Organisms: None Reported Past Surgical History: Hernia Repair Additional Past Surgical History / Comment(s): varicose vein stripping,double hernia repair Aug 2014 Past Anesthesia/Blood Transfusion Reactions: No Reported Reaction Past Psychological History: Anxiety Smoking Status: Never smoker Past Alcohol Use History: Occasional Past Drug Use History: None Reported - Past Family History Father Family Medical History: Cancer, Deep Vein Thrombosis (DVT) Additional Family Medical History / Comment(s): prostate Mother Family Medical History: Cancer Additional Family Medical History / Comment(s): breast Sister(s) Family Medical History: Cancer Additional Family Medical History / Comment(s): breast General Exam Limitations: no limitations General appearance: alert, in no apparent distress Head exam: Present: atraumatic, normocephalic, normal inspection Eye exam: Present: normal appearance, PERRL, EOMI. Absent: scleral icterus, conjunctival injection, periorbital swelling ENT exam: Present: normal exam, normal oropharynx, mucous membranes moist Neck exam: Present: normal inspection, full ROM. Absent: tenderness, meningismus, lymphadenopathy Respiratory exam: Present: normal lung sounds bilaterally. Absent: respiratory distress, wheezes, rales, rhonchi, stridor Cardiovascular Exam: Present: regular rate, normal rhythm, normal heart sounds. Absent: systolic murmur, diastolic murmur, rubs, gallop, clicks Neurological exam: Present: alert, oriented X3 Psychiatric exam: Present: depressed, flat affect Course Vital Signs 03/10/24 09:20 Temperature 98.3 F Pulse Rate 91 Respiratory 20 Rate Blood Pressure 131/89 O2 Sat by Pulse 99 Oximetry Medical Decision Making - Medical Decision Making Was pt. sent in by a medical professional or institution (, PA, ENVIRONMENTAL HEALTH AND SAFETY LEADER, urgent care, hospital, or group home...) When possible be specific @ -No Did you speak to anyone other than the patient for history (EMS, parent, family, police, friend...)? What history was obtained from this source @ -No Did you review nursing and triage notes (agree or disagree)? Why? @ -I reviewed and agree with nursing and triage notes Were old charts reviewed (outside hosp., previous admission, EMS record, old EKG, old radiological studies, urgent care reports/EKG's, group home records)? Report findings @ -No old charts were reviewed Differential Diagnosis (chest pain, altered mental status, abdominal pain women, abdominal pain men, vaginal bleeding, weakness, fever, dyspnea, syncope, headache, dizziness, GI bleed, back pain, seizure, CVA, palpatations, mental health, musculoskeletal)? @ -Differential Mental Health Depression, anxiety, bipolar, psychosis, schizophrenia, borderline personality, situational depression, adjustment disorder, behavioral disorder, brain tumor, malingering, substance abuse, encephalopathy, medication reaction, dementia, hypothyroidism, degenerative neurologic disorder, lupus.... This is not meant to be all-inclusive list EKG interpreted by me (3pts min.). @ -None X-rays interpreted by me (1pt min.). @ -None done CT interpreted by me (1pt min.). @ -None done U/S interpreted by me (1pt. min.). @ -None done What testing was considered but not performed or refused? (CT, X-rays, U/S, labs)? Why? @ -None What meds were considered but not given or refused? Why? @ -None Did you discuss the management of the patient with other professionals (professionals i.e. , PA, ENVIRONMENTAL HEALTH AND SAFETY LEADER, lab, RT, psych nurse, social science analyst, service planner, teacher, school services officer, manager of case)? Give summary @ -EPS evaluated the patient discussed case with psychiatry recommends inpatient treatment Was smoking cessation discussed for >3mins.? @ -No Was critical care preformed (if so, how long)? @ -No Were there social determinants of health that impacted care today? How? (Homelessness, low income, unemployed, alcoholism, drug addiction, transportation, low edu. Level, literacy, decrease access to med. care, fdc, rehab)? @ -No Was there de-escalation of care discussed even if they declined (Discuss DNR or withdrawal of care, Hospice)? DNR status @ -No What co-morbidities impacted this encounter? (DM, HTN, Smoking, COPD, CAD, Cancer, CVA, ARF, Chemo, Hep., AIDS, mental health diagnosis, sleep apnea, morbid obesity)? @ -None Was patient admitted / discharged? Hospital course, mention meds given and route, prescriptions, significant lab abnormalities, going to OR and other pertinent info. @ -Admitted to [facility] for psychiatric treatment Undiagnosed new problem with uncertain prognosis? @ -No Drug Therapy requiring intensive monitoring for toxicity (Heparin, Nitro, Insulin, Cardizem)? @ -No Were any procedures done? @ -No Diagnosis/symptom? @ -Depression, OCD, suicide ideation Acute, or Chronic, or Acute on Chronic? @ -Acute Uncomplicated (without systemic symptoms) or Complicated (systemic symptoms)? @ -Complicated Side effects of treatment? @ -No Exacerbation, Progression, or Severe Exacerbation? @ -No Poses a threat to life or bodily function? How? (Chest pain, USA, ME, pneumonia, PE, COPD, DKA, ARF, appy, cholecystitis, CVA, Diverticulitis, Homicidal, Suicidal, threat to staff... and all critical care pts) @ -Yes patient suicidal - Lab Data Lab Results 03/10/24 Range/Units 10:30 Urine Opiates Screen Not Detected (NotDetected) Ur Oxycodone Screen Not Detected (NotDetected) Urine Methadone Screen Not Detected (NotDetected) Ur Barbiturates Screen Not Detected (NotDetected) U Tricyclic Antidepress Not Detected (NotDetected) Ur Phencyclidine Scrn Not Detected (NotDetected) Ur Amphetamines Screen Not Detected (NotDetected) U Methamphetamines Scrn Not Detected (NotDetected) U Benzodiazepines Scrn Detected H (NotDetected) Urine Cocaine Screen Not Detected (NotDetected) U Marijuana (THC) Screen Not Detected (NotDetected) Disposition Clinical Impression: Obsessive compulsive disorder, Depression, Suicidal ideation Disposition: TRANSFER TO PSYCH HOSP/UNIT Referrals: Grover Gomez MD [Primary Care Provider] - 1-2 days Time of Disposition: 12:22
[2024-03-10] MEDS ORDERED: LORazepam 2 MG/ML INJ IM PRN ×2 (18:24→18:39)
[2024-03-10] MEDS ORDERED: HALOPERIDOL LACTATE 5 MG/ML 1 ML VIAL IM PRN (18:24)
[2024-03-10] MEDS ORDERED: LORazepam 1 MG TAB PO PRN (18:24)
[2024-03-10] MEDS ORDERED: MAGNESIUM HYDROXIDE 2,400 MG/30 ML CUP PO PRN (18:24)
[2024-03-10] MEDS ORDERED: IBUPROFEN 600 MG TAB PO PRN (18:24)
[2024-03-10] MEDS ORDERED: MAG HYDROX/AL HYDROX/SIMETH 355 ML BOTTLE PO PRN (18:24)
[2024-03-10 19:02] LABS: Appearance,Urine Clear (Clear); Bilirubin,Urine Negative (Negative); Blood,Urine Negative (Negative); Color,Urine Yellow; Glucose,Urine (UA) Negative (Negative); Ketones,Urine Negative (Negative); Leukocyte Esterase,Urine Negative (Negative); Nitrite,Urine Negative (Negative); PH, Urine 5.5 (5.0-8.0); Protein,Urine Negative (Negative); Specific Gravity,Urine 1.014 (1.001-1.035); Urobilinogen,Urine <2.0 mg/dL (<2.0)
[2024-03-10 19:17] LABS: INR 2.1 (<1.2); Prothrombin Time 21.2 sec (10.0-12.5)
[2024-03-10] MEDS: PALIPERIDONE 6 MG TAB.ER.24 PO SCH (21:11)
[2024-03-10] MEDS: busPIRone HCl 10 MG TAB PO SCH (21:11)
[2024-03-10] MEDS: SERTRALINE 100 MG TAB PO SCH (21:12)
[2024-03-10] MEDS: hydrOXYzine pamoate 25 MG CAP PO SCH (21:13)
[2024-03-10] MEDS: LOSARTAN 50 MG TAB PO SCH (21:13)
[2024-03-10] MEDS: WARFARIN 5 MG TAB PO SCH (21:14)
[2024-03-10] MEDS: traZODone HCL 100 MG TAB PO PRN (21:28)
--- NOTE | 2024-03-11 01:52 | P.CONS ---
History of Present Illness - Reason for Consult Consult date: 03/11/24 - History of Present Illness The patient is a 63-year-old male with a PMH of hypertension, DVT and PE on Coumadin, and psychosis who had presented to the emergency room with complaints of auditory and visual hallucinations. The patient was admitted to the mental health unit where he was seen and evaluated while accompanied by mental health unit RN Erendira. The patient notes that he been having visual hallucinations the past several weeks which has led to him hurting his . He denies any physical complaints at the time of interview. Denied experiencing chest discomfort, shortness breath, fever, chills, cough, nausea, vomiting, abdominal pain, diarrhea. He reports no tobacco use but does state that he drinks 3-4 alcoholic beverages a week. He denied illicit substance use. He is a retired teacher. Review of systems: Pertinent positives and negatives as discussed in HPI, a complete review of systems was performed and all other systems are negative. Physical examination: General: non toxic, no distress, appears at stated age, overweight Derm: no unusual rashes/lesions, no unusual ecchymoses, warm, dry Head: atraumatic, normocephalic, symmetric Eyes: EOMI, no lid lag, anicteric sclera ENT: Nose and ears atraumatic, no thrush, no pharyngeal erythema Neck: trachea midline, supple Mouth: no lip lesion, mucus membranes moist Cardiovascular: S1S2 reg, no murmur, no edema Lungs: CTA bilateral, no rhonchi, no rales , no accessory muscle use Abdominal: soft, nontender to palpation, no guarding Ext: no gross muscle atrophy, no contractures, Neuro: No gross focal neuro deficits noted Psych: Alert, oriented, appropriate affect Assessment: Chronic additions: History of DVT and PE, hypertension Psychosis Imaging: None performed Data Review: Laboratory evaluation revealed an unremarkable UA with urine toxicology positive for benzodiazepines and COVID-19 testing negative Plan: Resume patient's home Coumadin and losartan Defer management of psychosis to primary psychiatry service Thank you for allowing us to participate in the care of this patient. We will follow peripherally. Do not hesitate to contact us with questions. Someone can be reached from the [facility] hospitalist group at all hours of the day at [phone]. Past Medical History Past Medical History: Deep Vein Thrombosis (DVT), Hypertension, Pulmonary Embolus (PE) Additional Past Medical History / Comment(s): dvt rt thigh & PE x 2-2012, kidney stones History of Any Multi-Drug Resistant Organisms: None Reported Past Surgical History: Hernia Repair Additional Past Surgical History / Comment(s): varicose vein stripping,double hernia repair Aug 2014 Past Anesthesia/Blood Transfusion Reactions: No Reported Reaction Past Psychological History: Anxiety Smoking Status: Never smoker Past Alcohol Use History: Occasional Past Drug Use History: None Reported - Past Family History Father Family Medical History: Cancer, Deep Vein Thrombosis (DVT) Additional Family Medical History / Comment(s): prostate Mother Family Medical History: Cancer Additional Family Medical History / Comment(s): breast Sister(s) Family Medical History: Cancer Additional Family Medical History / Comment(s): breast Medications and Allergies Home Medications Medication Instructions Recorded Confirmed Type Losartan [Cozaar] 50 mg PO BID 12/10/14 03/10/24 History Pravastatin Sodium [Pravachol] 80 mg PO DAILY 10/11/23 03/10/24 History Warfarin [Coumadin] 5 mg PO SUMOTUTHFR@1800 10/11/23 03/10/24 History Warfarin [Coumadin] 10 mg PO WESA@1800 10/11/23 03/10/24 History Paliperidone [Invega] 6 mg PO HS 30 Days #30 tab 02/12/24 03/10/24 Rx Sertraline [Zoloft] 200 mg PO HS 30 Days #60 tab 02/12/24 03/10/24 Rx busPIRone HCL [Buspar] 30 mg PO BID 30 Days #60 tablet 02/12/24 03/10/24 Rx hydrOXYzine pamoate [Vistaril] 50 mg PO BID 30 Days #120 cap 02/12/24 03/10/24 Rx traZODone HCL [Desyrel] 100 mg PO HS PRN 30 Days #30 tab 02/12/24 03/10/24 Rx LORazepam [Ativan] 0.5 mg PO DAILY PRN 03/10/24 03/10/24 History Allergies Allergy/AdvReac Type Severity Reaction Status Date / Time No Known Allergies Allergy Verified 03/10/24 09:22 Physical Exam Vitals: Vital Signs Temp Pulse Pulse Pulse Resp BP BP 03/10/24 21:25 97.9 F 91 14 131/79 03/10/24 21:15 97.7 F 82 18 03/10/24 18:38 79 18 153/90 03/10/24 09:20 98.3 F 91 20 131/89 BP Pulse Ox 03/10/24 21:25 03/10/24 21:15 138/86 96 03/10/24 18:38 96 03/10/24 09:20 99 Intake and Output 03/10/24 03/10/24 03/11/24 14:59 22:59 06:59 Other: Weight 86.183 kg 84.368 kg Results Labs: Abnormal Lab Results - Last 24 Hours (Table) 03/10/24 03/10/24 Range/Units 10:30 18:47 PT 21.2 H (10.0-12.5) sec INR 2.1 H (<1.2) U Benzodiazepines Scrn Detected H (NotDetected)
[2024-03-11] MEDS: PRAVASTATIN SODIUM 80 MG TAB PO SCH (08:24)
[2024-03-11] MEDS: ACETAMINOPHEN TAB 325 MG TAB PO PRN (11:35)
--- NOTE | 2024-03-11 13:11 | P.HP ---
Psychiatric H&P - . H&P Date: 03/11/24 History & Physical: Allergies Allergy/AdvReac Type Severity Reaction Status Date / Time No Known Allergies Allergy Verified 03/10/24 09:22 Vital Signs Temp 97.2 F L 03/11/24 08:24 Pulse 104 H 03/11/24 08:24 Resp 14 03/10/24 21:25 BP 139/72 03/11/24 08:24 Pulse Ox 96 03/10/24 21:15 FiO2 Intake & Output 03/10/24 03/11/24 03/11/24 18:59 06:59 18:59 Weight 86.183 kg 84.368 kg Laboratory Last Values PT 21.2 sec (10.0-12.5) H 03/10/24 18:47 INR 2.1 (<1.2) H 03/10/24 18:47 Urine Color Yellow 03/10/24 10:30 Urine Appearance Clear (Clear) 03/10/24 10:30 Urine pH 5.5 (5.0-8.0) 03/10/24 10:30 Ur Specific [place] 1.014 (1.001-1.035) 03/10/24 10:30 Urine Protein Negative (Negative) 03/10/24 10:30 Urine Glucose (UA) Negative (Negative) 03/10/24 10:30 Urine Ketones Negative (Negative) 03/10/24 10:30 Urine Blood Negative (Negative) 03/10/24 10:30 Urine Nitrite Negative (Negative) 03/10/24 10:30 Urine Bilirubin Negative (Negative) 03/10/24 10:30 Urine Urobilinogen <2.0 mg/dL (<2.0) 03/10/24 10:30 Ur Leukocyte Esterase Negative (Negative) 03/10/24 10:30 Urine Opiates Screen Not Detected (NotDetected) 03/10/24 10:30 Ur Oxycodone Screen Not Detected (NotDetected) 03/10/24 10:30 Urine Methadone Screen Not Detected (NotDetected) 03/10/24 10:30 Ur Barbiturates Screen Not Detected (NotDetected) 03/10/24 10:30 U Tricyclic Antidepress Not Detected (NotDetected) 03/10/24 10:30 Ur Phencyclidine Scrn Not Detected (NotDetected) 03/10/24 10:30 Ur Amphetamines Screen Not Detected (NotDetected) 03/10/24 10:30 U Methamphetamines Scrn Not Detected (NotDetected) 03/10/24 10:30 U Benzodiazepines Scrn Detected (NotDetected) H 03/10/24 10:30 Urine Cocaine Screen Not Detected (NotDetected) 03/10/24 10:30 U Marijuana (THC) Screen Not Detected (NotDetected) 03/10/24 10:30 SARS-CoV-2 (PCR) Not Detected (Not Detectd) 03/10/24 12:31 03/11/24 13:11 Psychiatric Evaluation Identifying Data: Mr. Anthony is 63 years old, , wm, who lives in the [place], [place] in a house with . Chief Complaint: I have intrusive thoughts History of Psychiatric Illness- The patient noted that he was in this hospital in february of this here for similar complaints. He was discharged on Invega, Zoloft, Hydroxyzine, Trazodone, Buspirone. The patient goes to [facility] for out-pt follow-up. He has been seeing dr. Figueroa there. The patient has been compliant with medications but experienced breakthrough symptoms of intrusive thoughts. He had thoughts of hurting his . He has had these thoughts in the past but has never acted on them. He has never hurt anybody or self. He has no intent of hurting his . These are very discomforting thoughts to him. The other thoughts he has is like hurting other people when watching similar act being portrayed on TV or seeing some women on the street may bring the thought doing something sexual with them. The patient is very distressed with these thoughts. The patient noted that he came to the hospital because he feared being around her. He also was getting very depressed and started experiencing symptom of frustration, loss of interest, severe anxiety, loss of energy, feeling depleted, loss of sleep decreased appetite hopelessness. The patient noted that intrusive thoughts first started in late teens. The patient first sought treatment in his late 40s. He went as an out-pt. [facility] [place] [place] The patient later mentioned that he has compulsive acts too, like checking doors, and thing have to be in particular order and neat and clean. Past Psychiatric History: As stated above. Prozac, Zoloft, Effexor, Cymbalta, Risperdal? Abilify. Past Medication History Leading questions: The patient admitted to Depression and Anxiety. Denied SI or HI. Denied symptoms consistent with psychosis Drugs and alcohol history: None. Tobacco use: None Past Medical history: HTN, H/O of blood clots in right leg and lung Family History of Psychiatric Disorder: None as per patient. No h/o suicide or homicide Social History and Family History: The patient was born and raised in [place], [place]. he grew-up with 3 siblings. Finished HS. Masters in Education. Longest job for 30 years. for 27 years. No children. OTC: Vitamins. Allergies: None Objective: MSE: Alert and attentive. Orientation times three Dressed and Groomed: Appropriately. Pleasant and cooperative. Psychomotor Activity: Normal. Speech: Normal in tone, quality, and quantity. Mood: Depressed and anxious. Affect: Consistent with mood. SI or HI: None. Perceptual disturbance: None. Thought Content: Intrusive thoughts of hurting his . Thought Process: Normal. Cognition: Intact Judgment and Insight: Good AIMS: Normal Labs: Available labs reviewed. Diagnosis: OCD, VIVIEN, Depressive disorder, Nos Plan and Recommendations: Continue current Medications. Increase Invega to 9 mg. D/C Zoloft. Add Anafranil 25 mg po qhs. Monitor MS and side effects of medications and adjust medications accordingly. Provide supportive psychotherapy and psychoeducation. The patient provided psychoeducation. The patient to attend [facility]. CBC with Diff, CMP, TSH, Lipid Profile, HbA1c, EKG, Medication Consent with explanation of risk/benefits and side effects: Explained and obtained.
[2024-03-11] MEDS: LORazepam 0.5 MG TAB PO PRN (13:33)
[2024-03-11 13:40] LABS: Basophils # (A) 0.1 k/uL (0-0.2); Basophils % (A) 1 %; Eosinophils # (A) 0.1 k/uL (0-0.7); Eosinophils % (A) 2 %; HCT 41.7 % (39.0-53.0); HGB 13.8 gm/dL (13.0-17.5); Lymphocytes % (A) 18 %; MCH 31.7 pg (25.0-35.0); MCV 95.9 fL (80.0-100.0); Mean Platelet Volume 7.5; Monocytes # (A) 0.3 k/uL (0-1.0); Monocytes % (A) 6 %; Neutrophils % (A) 71 %; Platelet Count 176 k/uL (150-450); RBC 4.34 m/uL (4.30-5.90); RDW 12.6 % (11.5-15.5); WBC 5.7 k/uL (3.8-10.6)
[2024-03-11 13:52] LABS: INR 2.1 (<1.2)
[2024-03-11 13:59] LABS: ALT 18 U/L (4-49); AST 23 U/L (17-59); African American GFR (CKD) 76 (>60 ml/min/1.73 sqM); Albumin 4.6 g/dL (3.5-5.0); Alkaline Phosphatase 58 U/L (38-126); Anion Gap 4 mmol/L; Bilirubin, Delta 0.4 mg/dL (0.0-0.2); Bilirubin,Unconjugated 0.3 mg/dL (0.0-1.1); Blood Urea Nitrogen 17 mg/dL (9-20); Calcium 9.1 mg/dL (8.4-10.2); Carbon Dioxide 26 mmol/L (22-30); Chloride 109 mmol/L (98-107); Glucose 86 mg/dL (74-99); Non-African American GFR(CKD) 66 (>60 ml/min/1.73 sqM); Potassium 4.3 mmol/L (3.5-5.1); Sodium 139 mmol/L (137-145); Total Bilirubin 0.7 mg/dL (0.2-1.3); Total Protein 7.1 g/dL (6.3-8.2)
[2024-03-11] MEDS: hydrOXYzine pamoate 25 MG CAP PO SCH (15:33)
[2024-03-11] MEDS: WARFARIN 10 MG TAB PO SCH (17:18)
[2024-03-11 19:43] LABS: Chol/HDL Ratio 7.04 Ratio
[2024-03-12] MEDS: PALIPERIDONE 3 MG TAB.ER.24 PO SCH (08:19)
[2024-03-12 10:32] LABS: INR 2.3 (<1.2); Prothrombin Time 22.6 sec (10.0-12.5)
--- NOTE | 2024-03-12 12:12 | P.PN ---
Progress Note - Text Progress Note Date: 03/12/24 Follow-up Mediation Review Chief Complaint: I slept better Subjective: The patient noted that he slept better last night but had the thoughts of hurting his last night, then he asked himself, Can I kill my and dismissed the thought. The patient stated that this is what happens most of the time. The patient was reinforced to question such thoughts and reason the reality of such thoughts and impact to help himself. The patient reported no side effects. The dose to be increased to 50 mg at bed time. The patient agreed. Complaint since yesterday: No new complaints. The patient has been attending the groups. The participation is l good. The interaction with staff and peers is good. The patient is compliant with treatment recommendations. Leading questions: The patient admitted to Depression and Anxiety. Denied SI or HI. Denied symptoms consistent with psychosis Sleep and Appetite: Fair Change in family/ living/job/financial/daily routine: No change. Change in medical condition: No change. Change in medications: Anafranil increased to 50 mg hs. Side effects from Medications: None. . Objective- MSE: Alert and attentive. Orientation times three. Dressed and Groomed: Appropriately. Pleasant and cooperative. Psychomotor Activity: Normal. Speech: Normal in tone, quality and quantity. Mood: Depressed and anxious. Affect: Appropriate SI or HI: None. Perceptual disturbance: None. Thought Content: No paranoia or other delusional thinking noted. Thought Process: Normal. Cognition: Intact Judgment and Insight: Good AIMS: Normal. Labs: No new labs. Diagnosis: No change Plan and Recommendations: Continue current Medications. Monitor MS and side effects of medications and adjust medications accordingly. Provide supportive psychotherapy. The patient provided psychoeducation and advised The patient to attend humph[facility] activities. CBC with Diff, CMP, TSH, Lipid Profile, HbA1c, EKG. Medication Consent with explanation of risk/benefits and side effects: Explained and obtained.
[2024-03-13 08:17] LABS: INR 2.2 (<1.2); Prothrombin Time 22.1 sec (10.0-12.5)
--- NOTE | 2024-03-13 14:27 | P.PN ---
Progress Note - Text Progress Note Date: 03/13/24 Follow-up Mediation Review Chief Complaint: Not good Subjective: The patient noted that he is seeing no change. The intrusive thoughts of hurting his still bothering him. The patient did not report any side effects from Anafranil. No other complaints reported. Discussed the patient regarding discontinuing Invega and starting Haldol 0.5 mg at bedtime. Keep the dose of Anafranil at 50 mg and wait for 3 days to achieve the steady state. The patient agreed. Complaint since yesterday: No new complaints. The patient has been attending the groups. The participation is l good. The interaction with staff and peers is good. The patient is compliant with treatment recommendations. Leading questions: The patient admitted to Depression and Anxiety. Denied SI or HI. Denied symptoms consistent with psychosis Sleep and Appetite: Fair Change in family/ living/job/financial/daily routine: No change. Change in medical condition: No change. Change in medications: Anafranil increased to 50 mg hs. Added Haldol0.5 mg hs. D/C Invega. Side effects from Medications: None. . Objective- MSE: Alert and attentive. Orientation times three. Dressed and Groomed: Appropriately. Pleasant and cooperative. Psychomotor Activity: Normal. Speech: Normal in tone, quality, and quantity. Mood: Depressed and anxious. Affect: Appropriate SI or HI: None. Perceptual disturbance: None. Thought Content: No paranoia or other delusional thinking noted. Thought Process: Normal. Cognition: Intact Judgment and Insight: Good AIMS: Normal. Labs: No new labs. Diagnosis: No change Plan and Recommendations: Continue current Medications. Added Haldol 0.5 mg at bedtime. Monitor MS and side effects of medications and adjust medications accordingly. Provide supportive psychotherapy. The patient provided psychoeducation and advised The patient to attend humphrey activities Medication Consent with explanation of risk/benefits and side effects: Explained and obtained.
[2024-03-13] MEDS: haloperidoL 1 MG TAB PO SCH (20:44)
--- NOTE | 2024-03-14 08:48 | P.PN ---
Subjective Progress Note Date: 03/14/24 Principal diagnosis: Diagnosis: OCD, VIVIEN, Depressive disorder, Nos Patient Name: Yury Anthony Date of : 1960 Patient Status: Inpatient Attending Provider: Reese Lantigua Date: 03/14/24 Initialization Date: 03/13/24 14:26 Subjective: The patient noted that he is seeing no change. Patient remains very superficial Patient reports that he is not having any problems and is doing okay Patient is not very forthcoming and most likely due to talking to a new physician and still needs to develop a rapport Reviewing the chart reveals the following information which is included here for completeness: The intrusive thoughts of hurting his still bothering him. The patient did not report any side effects from Anafranil . No other complaints reported. Anafranil at 50 mg and wait for 3 days to achieve the steady state. The patient agreed. Complaint since yesterday: No new complaints. The patient has been attending the groups. The participation is l good. The interaction with staff and peers is good. The patient is compliant with treatment recommendations. Sleep and Appetite: Fair Change in family/ living/job/financial/daily routine: No change. Change in medical condition: No change. Change in medications: Anafranil increased to 50 mg hs. Added Haldol0.5 mg hs. D/C Invega. Side effects from Medications: None. . Objective- MSE: Alert and attentive. Orientation times three. Dressed and Groomed: Appropriately. Pleasant and cooperative. Psychomotor Activity: Normal. Speech: Normal in tone, quality, and quantity. Is not very forthcoming and remains guarded and superficial at this time Mood: Depressed and anxious. Affect: Appropriate SI or HI: None. Perceptual disturbance: None. Thought Content: No paranoia or other delusional thinking noted. Thought Process: Normal. Cognition: Intact Judgment and Insight: Difficult to assess AIMS: Normal. Labs: No new labs. Diagnosis: OCD, VIVIEN, Depressive disorder, Nos Plan and Recommendations: Continue current Medications. Added Haldol 0.5 mg at bedtime. Monitor MS and side effects of medications and adjust medications accordingly. Provide supportive psychotherapy. The patient provided psychoeducation and advised The patient to attend humphrey activities Medication Consent with explanation of risk/benefits and side effects: Explained and obtained. Bryon Mata MD Objective - Vital Signs Vital signs: Vital Signs Temp 97.5 F L 03/13/24 06:40 Pulse 90 03/14/24 06:41 Resp 16 03/13/24 06:40 BP 133/87 03/14/24 06:41 Pulse Ox 99 03/12/24 21:38 FiO2 - Labs CBC & Chem 7: 03/11/24 13:13 03/11/24 13:13
[2024-03-14 12:14] LABS: Prothrombin Time 20.3 sec (10.0-12.5)
--- NOTE | 2024-03-15 08:52 | P.PN ---
Subjective Progress Note Date: 03/15/24 Principal diagnosis: Diagnosis: OCD, VIVIEN, Depressive disorder, Nos Patient Name: Yury Anthony Date of : 1960 Patient Status: Inpatient Attending Provider: Reese Lantigua Date: 03/15/24 Initialization Date: 03/13/24 14:26 Subjective: The patient was seen chart was reviewed and case discussed with the nursing staff Conversation was not much different from yesterday The patient noted that he is seeing no change. Patient remains very superficial Patient reports that he is not having any problems and is doing okay Remains very superficial and uninterested Reviewing the chart reveals the following information which is included here for completeness: The intrusive thoughts of hurting his still bothering him. The patient did not report any side effects from Anafranil . No other complaints reported. Anafranil at 50 mg and wait for 3 days to achieve the steady state. The patient agreed. Complaint since yesterday: No new complaints. The patient has been attending the groups. The participation is l good. The interaction with staff and peers is good. The patient is compliant with treatment recommendations. Sleep and Appetite: States he slept well and his appetite is fair Change in family/ living/job/financial/daily routine: No change. Change in medical condition: No change. Change in medications: Anafranil increased to 50 mg hs. Haldol0.5 mg hs. Invega. Was discontinued by Dr. Bustamante Side effects from Medications: None. . Objective- MSE: Alert and attentive. Orientation times three. Dressed and Groomed: Appropriately. Pleasant and cooperative. Psychomotor Activity: Normal. Speech: Normal in tone, quality, and quantity. Is not very forthcoming and remains guarded and superficial at this time Mood: Depressed and anxious. Affect: Appropriate SI or HI: None. Perceptual disturbance: None. Thought Content: No paranoia or other delusional thinking noted. Thought Process: Normal. Cognition: Intact Judgment and Insight: Difficult to assess AIMS: Normal. Labs: No new labs. Diagnosis: OCD, VIVIEN, Depressive disorder, Nos Plan and Recommendations: Continue current Medications. Added Haldol 0.5 mg at bedtime. Monitor MS and side effects of medications and adjust medications accordingly. Provide supportive psychotherapy. The patient provided psychoeducation and advised The patient to attend humphrey activities Medication Consent with explanation of risk/benefits and side effects: Explained and obtained. Bryon Mata MD Objective - Vital Signs Vital signs: Vital Signs Temp 97.8 F 03/15/24 08:16 Pulse 118 H 03/15/24 08:16 Resp 18 03/15/24 08:16 BP 116/67 03/15/24 08:16 Pulse Ox 97 03/15/24 08:16 FiO2 - Labs CBC & Chem 7: 03/11/24 13:13 03/11/24 13:13 Labs: Abnormal Lab Results - Last 24 Hours (Table) 03/14/24 Range/Units 10:56 PT 20.3 H (10.0-12.5) sec INR 2.0 H (<1.2)
[2024-03-15 09:59] LABS: Prothrombin Time 19.7 sec (10.0-12.5)
[2024-03-15] MEDS: LORazepam 1 MG TAB PO PRN (14:44)
[2024-03-16 10:04] LABS: INR 1.9 (<1.2); Prothrombin Time 19.1 sec (10.0-12.5)
[2024-03-16] MEDS: haloperidoL 1 MG TAB PO SCH (20:56)
--- NOTE | 2024-03-16 21:51 | P.PN ---
Progress Note - Text Progress Note Date: 03/16/24 Follow-up Mediation Review Chief Complaint: I did not have thoughts last night Subjective: The patient noted that he did not have obsessive thoughts last night. He slept fair last night. He wanted to know when he can be discharged. The patients vital signs show increased pulse rate since starting Anafranil. This will be monitored to further titrate the dose. Haldol increased to 1.5 mg with consent of the patient. Overall mild improvement. Complaint since yesterday: No new complaints. The patient has been attending the groups. The participation is good. The interaction with staff and peers is good. The patient is compliant with treatment recommendations. Leading questions: The patient admitted to Depression and Anxiety. Denied SI or HI. Denied symptoms consistent with psychosis Sleep and Appetite: Fair Change in family/ living/job/financial/daily routine: No change. Change in medical condition: No change. Change in medications: Haldol increased to 1.5 mg hs. Side effects from Medications: None. . Objective- MSE: Alert and attentive. Orientation times three. Dressed and Groomed: Appropriately. Pleasant and cooperative. Psychomotor Activity: Normal. Speech: Normal in tone, quality, and quantity. Mood: Depressed and anxious- improved. Affect: Appropriate SI or HI: None. Perceptual disturbance: None. Thought Content: No paranoia or other delusional thinking noted. Thought Process: Normal. Cognition: Intact Judgment and Insight: Good AIMS: Normal. Labs: No new labs. Diagnosis: No change Plan and Recommendations: Continue current Medications. Monitor MS and side effects of medications and adjust medications accordingly. Provide supportive psychotherapy. The patient provided psychoeducation and advised The patient to attend humphrey activities Medication Consent with explanation of risk/benefits and side effects: Explained and obtained.
[2024-03-17 07:26] LABS: Prothrombin Time 19.8 sec (10.0-12.5)
--- NOTE | 2024-03-17 20:55 | P.PN ---
Progress Note - Text Progress Note Date: 03/17/24 Follow-up Mediation Review Chief Complaint: I am doing good. Subjective: The patient noted that sleep good last night. The patient noted that thoughts of hurting still come but the intensity and frequency has gone down. He is also able to ignore them. Overall, the patient continues to show improvement. Complaint since yesterday: No new complaints. The patient has been attending the groups. The participation is good. The interaction with staff and peers is good. The patient is compliant with treatment recommendations. Leading questions: The patient admitted to Depression and Anxiety. Denied SI or HI. Denied symptoms consistent with psychosis Sleep and Appetite: Fair Change in family/ living/job/financial/daily routine: No change. Change in medical condition: No change. Change in medications: Haldol increased to 1.5 mg hs. Side effects from Medications: None. . Objective- MSE: Alert and attentive. Orientation times three. Dressed and Groomed: Appropriately. Pleasant and cooperative. Psychomotor Activity: Normal. Speech: Normal in tone, quality, and quantity. Mood: Depressed and anxious- improved. Affect: Appropriate SI or HI: None. Perceptual disturbance: None. Thought Content: No paranoia or other delusional thinking noted. Thought Process: Normal. Cognition: Intact Judgment and Insight: Good AIMS: Normal. Labs: No new labs. Diagnosis: No change Plan and Recommendations: Continue current Medications. Monitor MS and side effects of medications and adjust medications accordingly. Provide supportive psychotherapy. The patient provided psychoeducation and advised The patient to attend humphrey activities Medication Consent with explanation of risk/benefits and side effects: Explained and obtained.
[2024-03-18 06:47] VITALS: BP 118/64; PULSE 90; RESP 14; TEMP 97.7
[2024-03-18 09:40] LABS: INR 1.8 (<1.2); Prothrombin Time 18.5 sec (10.0-12.5)
--- NOTE | 2024-03-18 10:39 | P.DS ---
Providers Date of admission: 03/10/24 17:57 Expected date of discharge: 03/18/24 Attending physician: Reese Lantigua MD Consults: 03/10/24 18:24 Consult Physician Routine Consulting Provider: Marie Physician Consult Reason/Comments: H & P w/medication and medical management Do you want consulting provider notified?: Yes Primary care physician: Grover Gomez - Discharge Diagnosis(es) (1) Obsessive compulsive disorder (or obsessive compulsive neurosis) Current Visit: Yes Status: Acute Priority: High (2) Generalized anxiety disorder Current Visit: Yes Status: Acute Priority: Medium Hospital Course: Discharge Summary HPI: Identifying Data: Mr. Anthony is 63 years old, , wm, who lives in the [place], [place] in a house with . Chief Complaint: I have intrusive thoughts History of Psychiatric Illness- The patient noted that he was in this hospital in february of this here for similar complaints. He was discharged on Invega, Zoloft, Hydroxyzine, Trazodone, Buspirone. The patient goes to [facility] for out-pt follow-up. He has been seeing dr. Figueroa there. The patient has been compliant with medications but experienced breakthrough symptoms of intrusive thoughts. He had thoughts of hurting his . He has had these thoughts in the past but has never acted on them. He has never hurt anybody or self. He has no intent of hurting his . These are very discomforting thoughts to him. The other thoughts he has is like hurting other people when watching similar act being portrayed on TV or seeing some women on the street may bring the thought doing something sexual with them. The patient is very distressed with these thoughts. The patient noted that he came to the hospital because he feared being around her. He also was getting very depressed and started experiencing symptom of frustration, loss of interest, severe anxiety, loss of energy, feeling depleted, loss of sleep decreased appetite hopelessness. The patient noted that intrusive thoughts first started in late teens. The patient first sought treatment in his late 40s. He went as an out-pt. His first hospitalization was in October to [place], [place]. The patient later mentioned that he has compulsive acts too, like checking doors, and thing have to be in particular order and neat and clean. Past Psychiatric History: As stated above. Past Medication History Prozac, Zoloft, Effexor, Cymbalta, Risperdal? Abilify Leading questions: The patient admitted to Depression and Anxiety. Denied SI or HI. Denied symptoms consistent with psychosis Drugs and alcohol history: None. Tobacco use: None Hospital Course: After admission, the patient was involved in pharmacotherapy, humphrey milieu, and individual psychodynamic psychotherapy. The patient was started on his home medications and dose was titrated. The patient did not show improvement. He was started on Anafranil and Haldol and the home medications were discontinued. The dose was titrated to obtain the desired effects. The patient tolerated medications well without any side effects. The patient was also involved in humphrey activities. The patient attended the groups and participated well. The patient interacted with peers and staff well. The patient slowly started showing improvement. The hospital course was uneventful. The patient symptoms of depression, suicidal and homicidal thoughts abated. The psychosis improved. The patient was stable to be discharged to out-patient care. The patient did not have any guns or weapons in possession at home. MSE: Alert and attentive. Orientation times three Dressed and Groomed: Appropriately. Pleasant and cooperative. Psychomotor Activity: Normal. Speech: Normal in tone, quality, and quantity. Mood: Depressed and anxious. Affect: Consistent with mood. SI or HI: None. Perceptual disturbance: None. Thought Content: Intrusive thoughts of hurting his . Thought Process: Normal. Cognition: Intact Judgment and Insight: Good AIMS: Normal Diagnosis: s: OCD VIVIEN Depressive disorder, Nos Plan: The patient to be discharged today. The patient has attained good improvement since admission. He is stable to be followed as an outpatient. The patient is not suicidal or Homicidal. He does not pose any harm to self or others. The patient remains at a greater risk of self-harm or harm to others than general population on a chronic basis due to psychiatric illness and substance abuse. The patient will continue taking following medication post discharge. The importance of medication compliance and maintaining regular appointments at psychiatric out-pt and PCP clinic was explained and encouraged. The understood and agreed with the recommendations. machine farmworker to arrange for and conduct family meeting to ensure safety upon discharge and answer any questions. The social group worker to arrange for patients follow-up appointments at [facility] for psychiatric care along with follow-up with PCP. The patient provided psychoeducation. Advised to call 911 or go to nearest ED or call this hospital in case of acute worsening of symptomatology, severe side effects or having suicidal, homicidal thoughts and feeling unsafe at home. Patient Condition at Discharge: Stable Plan - Discharge Summary Discharge Rx Participant: No New Discharge Prescriptions: New clomiPRAMINE [Anafranil] 50 mg PO HS 30 Days #30 cap traZODone HCL [Desyrel] 100 mg PO HS PRN 30 Days #30 tab PRN Reason: Insomnia haloperidoL [Haldol] 1.5 mg PO HS 30 Days #30 tab hydrOXYzine pamoate [Vistaril] 25 mg PO TID 90 Days #30 cap Continue Losartan [Cozaar] 50 mg PO BID Warfarin [Coumadin] 5 mg PO SUMOTUTHFR@1800 Warfarin [Coumadin] 10 mg PO WESA@1800 Pravastatin Sodium [Pravachol] 80 mg PO DAILY hydrOXYzine pamoate [Vistaril] 50 mg PO BID 30 Days #120 cap busPIRone HCL [Buspar] 30 mg PO BID 30 Days #60 tablet traZODone HCL [Desyrel] 100 mg PO HS PRN 30 Days #30 tab PRN Reason: Insomnia Discontinued Sertraline [Zoloft] 200 mg PO HS 30 Days #60 tab LORazepam [Ativan] 0.5 mg PO DAILY PRN PRN Reason: Anxiety Paliperidone [Invega] 6 mg PO HS 30 Days #30 tab Discharge Medication List Losartan [Cozaar] 50 mg PO BID 12/10/14 [History] Pravastatin Sodium [Pravachol] 80 mg PO DAILY 10/11/23 [History] Warfarin [Coumadin] 5 mg PO SUMOTUTHFR@1800 10/11/23 [History] Warfarin [Coumadin] 10 mg PO WESA@1800 10/11/23 [History] busPIRone HCL [Buspar] 30 mg PO BID 30 Days #60 tablet 02/12/24 [Rx] clomiPRAMINE [Anafranil] 50 mg PO HS 30 Days #30 cap 03/18/24 [Rx] haloperidoL [Haldol] 1.5 mg PO HS 30 Days #30 tab 03/18/24 [Rx] hydrOXYzine pamoate [Vistaril] 25 mg PO TID 90 Days #30 cap 06/12/24 [Rx] hydrOXYzine pamoate [Vistaril] 50 mg PO BID 30 Days #120 cap 03/18/24 [Rx] traZODone HCL [Desyrel] 100 mg PO HS PRN 30 Days #30 tab 03/18/24 [Rx] traZODone HCL [Desyrel] 100 mg PO HS PRN 30 Days #30 tab 03/18/24 [Rx] Follow up Appointment(s)/Referral(s): [facility] [Outside] - 03/19/24 8:00 am (03/19/2024 8:00AM - 9:00AM AGUS THOMPSON 03/19/2024 10:00AM - 10:30AM FRANCISCO FIGUEROA 04/14/2024 3:00PM - 3:30PM FRANCISCO FIGUEROA ) Grover Gomez MD [Primary Care Provider] - 1-2 days Patient Instructions/Handouts: Depression (DC), Obsessive Compulsive Disorder (DC), Anxiety (ED) Activity/Diet/Wound Care/Special Instructions: Avoid the use of street drugs and alcohol. Take all medications as prescribed. When you are in need of refills on your medications, please contact your medical provider and/or outpatient psychiatrist/provider to have this done. Please go to your scheduled outpatient appointment for aftercare treatment. If symptoms return or become worse, call the crisis line at and/or go to the nearest emergency room for evaluation. National Suicide Hotline 993 Discharge Disposition: HOME SELF-CARE
== END 2024-03-18 13:30 | disposition home or self-care (01) | DRG 882 ==
LOC: EC 09:13 → 3MHU 17:57 → UNDOADMIN 17:57 → 3MHU 18:15
PROVIDERS: ADMIT Psychiatry & Neurology Psychiatry; ATTEND Psychiatry & Neurology Psychiatry
DX: F42.8 Other obsessive-compulsive disorder (principal); R45.851 Suicidal ideations; F41.1 Generalized anxiety disorder; I10 Essential (primary) hypertension; R44.1 Visual hallucinations; F32.A Depression, unspecified; Z86.718 Personal history of other venous thrombosis and embolism; Z86.711 Personal history of pulmonary embolism; Z79.899 Other long term (current) drug therapy; Z79.01 Long term (current) use of anticoagulants; Z11.52 Encounter for screening for COVID-19
CPT/HCPCS: 80053; 80061; 80306; 81003; 82075; 82248; 83036; 84443; 85025; 85610; 87635; 93005; 99285

== ENCOUNTER → 2024-04-02 | Outpatient (CLI) | payer BC ==
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
== END | disposition home or self-care (01) ==
LOC: RADMRIMAIN 08:59
PROVIDERS: ATTEND Psychiatry & Neurology Neurology
DX: R41.82 Altered mental status, unspecified (principal); Q79.59 Other congenital malformations of abdominal wall
CPT/HCPCS: 70553; A9585

== ENCOUNTER 2024-05-13 02:26 | Inpatient (IN) | payer BC ==
[~2024-05-13 02:26] MED LIST: LORazepam 1 MG TAB ONE; traZODone HCL 100 MG TAB ONE
[2024-05-13] MEDS ORDERED: hydrOXYzine pamoate 25 MG CAP ONE ×4 (03:03→20:14)
[2024-05-13] MEDS ORDERED: busPIRone HCl 10 MG TAB ONE ×4 (07:45→20:11)
[2024-05-13] MEDS ORDERED: LOSARTAN 50 MG TAB ONE (07:46)
[2024-05-13] MEDS ORDERED: clonazePAM 0.5 MG TAB ONE (08:32)
[2024-05-13] MEDS ORDERED: ACETAMINOPHEN TAB 325 MG TAB ONE (10:37)
[2024-05-13] MEDS ORDERED: LORazepam 1 MG TAB ONE (18:21)
[2024-05-13] MEDS ORDERED: traZODone HCL 100 MG TAB ONE ×2 (20:15)
[2024-05-14] MEDS ORDERED: hydrOXYzine HCL 25 MG TAB ONE (07:45)
[2024-05-14] MEDS ORDERED: busPIRone HCl 10 MG TAB ONE ×2 (07:45→19:28)
[2024-05-14] MEDS ORDERED: LOSARTAN 50 MG TAB ONE (07:46)
[2024-05-14] MEDS ORDERED: LORazepam 1 MG TAB ONE ×2 (10:30→17:21)
[2024-05-14] MEDS ORDERED: hydrOXYzine pamoate 25 MG CAP ONE (19:44)
[2024-05-14] MEDS ORDERED: traZODone HCL 100 MG TAB ONE (19:45)
[2024-05-15] MEDS ORDERED: busPIRone HCl 10 MG TAB ONE ×2 (07:44→19:39)
[2024-05-15] MEDS ORDERED: hydrOXYzine HCL 25 MG TAB ONE (07:44)
[2024-05-15] MEDS ORDERED: LORazepam 1 MG TAB ONE (10:08)
[2024-05-15] MEDS ORDERED: ZIPRASIDONE 20 MG CAP PO ONE (13:12)
[2024-05-15] MEDS ORDERED: traZODone HCL 100 MG TAB ONE (19:39)
[2024-05-15] MEDS ORDERED: hydrOXYzine pamoate 25 MG CAP ONE (19:39)
[2024-05-16] MEDS ORDERED: hydrOXYzine pamoate 25 MG CAP ONE ×2 (07:32→19:52)
[2024-05-16] MEDS ORDERED: LORazepam 1 MG TAB ONE (08:00)
[2024-05-16] MEDS ORDERED: clonazePAM 0.5 MG TAB ONE (11:57)
[2024-05-16] MEDS ORDERED: ZIPRASIDONE 20 MG CAP PO ONE (13:14)
[2024-05-16] MEDS ORDERED: traZODone HCL 100 MG TAB ONE (19:51)
[2024-05-17] MEDS ORDERED: ZIPRASIDONE 20 MG CAP PO ONE ×2 (07:37→21:00)
[2024-05-17] MEDS ORDERED: busPIRone HCl 10 MG TAB ONE ×3 (07:37→20:54)
[2024-05-17] MEDS ORDERED: hydrOXYzine pamoate 25 MG CAP ONE ×2 (07:38→20:54)
[2024-05-17] MEDS ORDERED: LORazepam 1 MG TAB ONE (08:58)
[2024-05-17] MEDS ORDERED: traZODone HCL 100 MG TAB ONE (20:53)
[2024-05-17] MEDS ORDERED: PRAVASTATIN SODIUM 80 MG TAB ONE (21:00)
[2024-05-17] MEDS ORDERED: WARFARIN 5 MG TAB ONE (21:00)
[2024-05-18] MEDS ORDERED: busPIRone HCl 10 MG TAB ONE ×3 (07:42→20:27)
[2024-05-18] MEDS ORDERED: hydrOXYzine pamoate 25 MG CAP ONE ×3 (07:42→20:26)
[2024-05-18] MEDS ORDERED: ZIPRASIDONE 20 MG CAP PO ONE ×4 (07:42→20:26)
[2024-05-18] MEDS ORDERED: PRAVASTATIN SODIUM 80 MG TAB ONE (08:00)
[2024-05-18] MEDS ORDERED: WARFARIN 10 MG TAB ONE (08:00)
[2024-05-18] MEDS ORDERED: LORazepam 1 MG TAB ONE (10:27)
[2024-05-18] MEDS ORDERED: traZODone HCL 100 MG TAB ONE (20:26)
[2024-05-19] MEDS ORDERED: ZIPRASIDONE 20 MG CAP PO ONE ×2 (00:01→07:32)
[2024-05-19] MEDS ORDERED: ZIPRASIDONE 40 MG CAP PO ONE ×2 (00:01→20:04)
[2024-05-19] MEDS ORDERED: PRAVASTATIN SODIUM 80 MG TAB ONE (00:01)
[2024-05-19] MEDS ORDERED: busPIRone HCl 10 MG TAB ONE ×3 (07:32→20:04)
[2024-05-19] MEDS ORDERED: hydrOXYzine pamoate 25 MG CAP ONE ×2 (07:32→20:04)
[2024-05-19] MEDS ORDERED: LORazepam 1 MG TAB ONE (18:48)
[2024-05-19] MEDS ORDERED: traZODone HCL 100 MG TAB ONE (20:04)
[2024-05-20] MEDS ORDERED: ZIPRASIDONE 40 MG CAP PO ONE ×3 (00:01→19:40)
[2024-05-20] MEDS ORDERED: WARFARIN 10 MG TAB ONE (00:01)
[2024-05-20] MEDS ORDERED: PRAVASTATIN SODIUM 80 MG TAB ONE (00:01)
[2024-05-20] MEDS ORDERED: busPIRone HCl 10 MG TAB ONE ×2 (07:40→19:40)
[2024-05-20] MEDS ORDERED: hydrOXYzine pamoate 25 MG CAP ONE ×2 (07:40→19:40)
[2024-05-20] MEDS ORDERED: LORazepam 1 MG TAB ONE (11:23)
[2024-05-20] MEDS ORDERED: ACETAMINOPHEN TAB 325 MG TAB ONE (16:21)
[2024-05-20] MEDS ORDERED: traZODone HCL 100 MG TAB ONE (19:40)
[2024-05-20] MEDS ORDERED: risperiDONE 0.5 MG TAB ONE (19:40)
[2024-05-21] MEDS ORDERED: busPIRone HCl 10 MG TAB ONE ×2 (07:40→19:43)
[2024-05-21] MEDS ORDERED: hydrOXYzine pamoate 25 MG CAP ONE ×2 (07:41→19:43)
[2024-05-21] MEDS ORDERED: risperiDONE 0.5 MG TAB ONE (07:41)
[2024-05-21] MEDS ORDERED: LORazepam 1 MG TAB ONE (11:56)
[2024-05-21] MEDS ORDERED: traZODone HCL 100 MG TAB ONE (19:43)
[2024-05-21] MEDS ORDERED: risperiDONE 1 MG TAB ONE (19:44)
[2024-05-22] MEDS ORDERED: busPIRone HCl 10 MG TAB ONE ×2 (07:49→19:24)
[2024-05-22] MEDS ORDERED: risperiDONE 1 MG TAB ONE ×2 (07:49→19:28)
[2024-05-22] MEDS ORDERED: hydrOXYzine pamoate 25 MG CAP ONE ×2 (07:49→19:27)
[2024-05-22] MEDS ORDERED: LORazepam 1 MG TAB ONE (08:35)
[2024-05-22] MEDS ORDERED: OLANZapine 5 MG TAB ONE (11:06)
[2024-05-22] MEDS ORDERED: traZODone HCL 100 MG TAB ONE (19:28)
[2024-05-22] MEDS ORDERED: busPIRone HCl 5 MG TAB ONE (19:50)
[2024-05-22] MEDS ORDERED: MIRTAZAPINE 15 MG TAB ONE (19:51)
[2024-05-23] MEDS ORDERED: PRAVASTATIN SODIUM 80 MG TAB ONE (00:01)
[2024-05-23] MEDS ORDERED: WARFARIN 7.5 MG TAB ONE (00:01)
[2024-05-23] MEDS ORDERED: risperiDONE 1 MG TAB ONE (07:39)
[2024-05-23] MEDS ORDERED: busPIRone HCl 10 MG TAB ONE ×3 (07:39→19:43)
[2024-05-23] MEDS ORDERED: hydrOXYzine pamoate 25 MG CAP ONE ×3 (07:41→19:43)
[2024-05-23] MEDS ORDERED: LORazepam 1 MG TAB ONE (08:29)
[2024-05-23] MEDS ORDERED: traZODone HCL 100 MG TAB ONE (19:43)
[2024-05-24] MEDS ORDERED: risperiDONE 1 MG TAB ONE ×2 (07:38→19:29)
[2024-05-24] MEDS ORDERED: busPIRone HCl 10 MG TAB ONE ×2 (07:38→19:36)
[2024-05-24] MEDS ORDERED: hydrOXYzine pamoate 25 MG CAP ONE ×3 (07:39→19:30)
[2024-05-24] MEDS ORDERED: LORazepam 1 MG TAB ONE (11:55)
[2024-05-24] MEDS ORDERED: traZODone HCL 100 MG TAB ONE (19:29)
[2024-05-25] MEDS ORDERED: risperiDONE 1 MG TAB ONE (07:36)
[2024-05-25] MEDS ORDERED: busPIRone HCl 10 MG TAB ONE ×2 (07:36→19:40)
[2024-05-25] MEDS ORDERED: hydrOXYzine pamoate 25 MG CAP ONE ×3 (07:51→19:40)
[2024-05-25] MEDS ORDERED: MAGNESIUM HYDROXIDE 2,400 MG/30 ML CUP ONE (10:26)
[2024-05-25] MEDS ORDERED: OLANZapine 2.5 MG TAB ONE (13:30)
[2024-05-25] MEDS ORDERED: OLANZapine 5 MG TAB ONE (19:40)
[2024-05-25] MEDS ORDERED: traZODone HCL 100 MG TAB ONE (19:40)
[2024-05-26] MEDS ORDERED: OLANZapine 2.5 MG TAB ONE ×3 (07:42→20:05)
[2024-05-26] MEDS ORDERED: hydrOXYzine pamoate 25 MG CAP ONE ×3 (07:43→20:03)
[2024-05-26] MEDS ORDERED: LORazepam 1 MG TAB ONE (16:16)
[2024-05-26] MEDS ORDERED: traZODone HCL 100 MG TAB ONE (20:03)
[2024-05-26] MEDS ORDERED: busPIRone HCl 10 MG TAB ONE (20:03)
[2024-05-27] MEDS ORDERED: hydrOXYzine pamoate 25 MG CAP ONE ×2 (06:18→13:44)
[2024-05-27] MEDS ORDERED: busPIRone HCl 10 MG TAB ONE ×3 (07:40→19:37)
[2024-05-27] MEDS ORDERED: OLANZapine 2.5 MG TAB ONE (07:40)
[2024-05-27] MEDS ORDERED: LORazepam 1 MG TAB ONE (08:41)
[2024-05-27] MEDS ORDERED: ACETAMINOPHEN TAB 325 MG TAB ONE ×2 (13:52)
[2024-05-27] MEDS ORDERED: traZODone HCL 100 MG TAB ONE (19:41)
[2024-05-27] MEDS ORDERED: OLANZapine 10 MG TAB ONE (19:42)
[2024-05-28] MEDS ORDERED: busPIRone HCl 10 MG TAB ONE ×2 (07:51→19:42)
[2024-05-28] MEDS ORDERED: OLANZapine 5 MG TAB ONE (07:52)
[2024-05-28] MEDS ORDERED: hydrOXYzine pamoate 25 MG CAP ONE ×3 (07:52→19:42)
[2024-05-28] MEDS ORDERED: clonazePAM 0.5 MG TAB ONE (09:24)
[2024-05-28] MEDS ORDERED: traZODone HCL 100 MG TAB ONE (19:42)
[2024-05-28] MEDS ORDERED: OLANZapine 10 MG TAB ONE (19:42)
[2024-05-29] MEDS ORDERED: busPIRone HCl 10 MG TAB ONE (07:46)
[2024-05-29] MEDS ORDERED: OLANZapine 5 MG TAB ONE ×2 (07:47→21:43)
[2024-05-29] MEDS ORDERED: hydrOXYzine pamoate 25 MG CAP ONE ×2 (07:47→14:45)
[2024-05-29] MEDS ORDERED: clonazePAM 0.5 MG TAB ONE (13:34)
[2024-05-29] MEDS ORDERED: traZODone HCL 50 MG TAB ONE (21:44)
[2024-05-30] MEDS ORDERED: hydrOXYzine pamoate 25 MG CAP ONE ×3 (06:13→19:45)
[2024-05-30] MEDS ORDERED: OLANZapine 5 MG TAB ONE ×2 (07:42→19:46)
[2024-05-30] MEDS ORDERED: busPIRone HCl 10 MG TAB ONE ×3 (07:42→19:44)
[2024-05-30] MEDS ORDERED: LORazepam 1 MG TAB ONE (13:23)
[2024-05-30] MEDS ORDERED: traZODone HCL 50 MG TAB ONE (19:45)
[2024-05-30] MEDS ORDERED: OLANZapine 10 MG TAB ONE (19:47)
[2024-05-31] MEDS ORDERED: ACETAMINOPHEN TAB 325 MG TAB PO PRN
[2024-05-31] MEDS ORDERED: OLANZapine 5 MG TAB PO PRN
[2024-05-31] MEDS ORDERED: MAG HYDROX/AL HYDROX/SIMETH 30 ML CUP PO PRN
[2024-05-31] MEDS ORDERED: OLANZapine 10 MG VIAL IM PRN
[2024-05-31] MEDS ORDERED: MAGNESIUM HYDROXIDE 2,400 MG/30 ML CUP PO PRN
[2024-05-31] MEDS ORDERED: LORazepam 1 MG TAB PO PRN (09:00)
--- NOTE | 2024-05-31 09:06 | P.PN ---
Progress Note - Text Progress Note Date: 05/31/24 The patient was seen and chart was reviewed and case discussed with the nursing staff Patient reports that he is nervous about going home he states that he had made comments about wanting to hurt his and that he does not know as to how he will handle it and hopefully it will work out okay He reports that she came to visit him yesterday and that things were fine He states that she understands his illness and his cooperative and sympathetic He states that emotionally he is feeling much better except for the anxiety part and is hoping that once he goes home that things will fall in place However he states that her visit yesterday also helped Mental Status Exam: General Appearance: Patient appears to be average build middle-aged male, disheveled appearance, stated age is cooperative. Patient appears to have mildly improving hygiene and grooming. Behavior: Patient is laying in bed, and more cooperative, improving mildly Speech: Patient's speech is fluent and nonpressured. Mood/Affect: Patient reports their mood is "good", affect is congruent and improving complaints of some anxiety Suicidality/Homicidality: Patient denies having any homicidal ideation intent or plan. Denies any suicidal ideations intent or plan Perceptions: Patient denies any visual hallucinations and denies any auditory hallucinations Though content/process: more goal oriented.and more logical, improving Memory and concentration: Alert and oriented 3, fair attention span. 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 -Medications : Continue Anafranil and Zyprexa as prescribed - on board for discharge planning. Encourage patient to participate in groups to work on coping skills. PAtient is stabilizing on medications, improving psychiatrically and appears to be at his baseline. Tentative discharge tomorrow morning Bryon Mata MD Active Medications Generic Name Dose Route Start Last Admin Trade Name Freq PRN Reason Stop Dose Admin Acetaminophen 650 mg 05/31/24 00:00 Acetaminophen Tab 325 Mg Tab PO Q4H PRN Fever and/ or Pain Al Hydroxide/Mg Hydroxide 30 ml 05/31/24 00:00 Mag Hydrox/Al Hydrox/Simeth 30 Ml Cup PO Q4HR PRN GI Upset Buspirone HCl 30 mg 05/31/24 09:00 Buspirone Hcl 10 Mg Tab PO BID MAURO Clomipramine HCl 100 mg 05/31/24 21:00 Clomipramine 50 Mg Cap PO HS MAURO Clonazepam 0.5 mg 05/31/24 09:00 Clonazepam 0.5 Mg Tab PO DAILY PRN Anxiety Hydroxyzine Pamoate 25 mg 05/31/24 09:00 Hydroxyzine Pamoate 25 Mg Cap PO TID MAURO Lorazepam 1 mg 05/31/24 09:00 Lorazepam 1 Mg Tab PO TID PRN Anxiety Magnesium Hydroxide 2,400 mg 05/31/24 00:00 Magnesium Hydroxide 2,400 Mg/30 Ml Cup PO DAILY PRN Constipation Miscellaneous Information 0 each 05/31/24 00:00 Warfarin Per Pharmacy MISCELLANE DIRECTED PRN DOSING Olanzapine 2.5 mg 05/31/24 09:00 Olanzapine 2.5 Mg Tab PO DAILY MAURO Olanzapine 7.5 mg 05/31/24 21:00 Olanzapine 2.5 Mg Tab PO HS MAURO Olanzapine 5 mg 05/31/24 00:00 Olanzapine 5 Mg Tab PO Q6H PRN AGITATION Olanzapine 10 mg 05/31/24 00:00 Olanzapine 10 Mg Vial IM Q6H PRN AGITATION Pravastatin Sodium 80 mg 05/31/24 21:00 Pravastatin Sodium 80 Mg Tab PO HS MAURO Trazodone HCl 50 mg 05/31/24 21:00 Trazodone Hcl 50 Mg Tab PO HS MAURO
[2024-05-31 10:36] LABS: INR 1.8 (<1.2); Prothrombin Time 18.1 sec (10.0-12.5)
[2024-05-31] MEDS: busPIRone HCl 10 MG TAB PO SCH (10:53)
[2024-05-31] MEDS: OLANZapine 2.5 MG TAB PO SCH ×2 (10:53→20:51)
[2024-05-31] MEDS: hydrOXYzine pamoate 25 MG CAP PO SCH (10:54)
[2024-05-31] MEDS: clonazePAM 0.5 MG TAB PO PRN (14:47)
[2024-05-31] MEDS: WARFARIN 10 MG TAB PO ONE (17:04)
[2024-05-31] MEDS: traZODone HCL 50 MG TAB PO SCH (20:49)
[2024-05-31] MEDS: PRAVASTATIN SODIUM 80 MG TAB PO SCH (20:50)
[2024-06-01 07:11] VITALS: BP 142/91; PULSE 96; RESP 14; TEMP 97.4
[2024-06-01] MEDS ORDERED: busPIRone HCl 10 MG TAB ONE (07:46)
[2024-06-01] MEDS ORDERED: OLANZapine 5 MG TAB ONE (07:47)
[2024-06-01] MEDS ORDERED: hydrOXYzine pamoate 25 MG CAP ONE (07:47)
[2024-06-01] MEDS ORDERED: NICOTINE 14MG/24HR PATCH TRANSDERM ONE (07:50)
[2024-06-01] MEDS ORDERED: THIAMINE 100 MG TAB ONE (07:51)
[2024-06-01] MEDS ORDERED: LORazepam 1 MG TAB ONE (07:51)
[2024-06-01] MEDS ORDERED: MULTIVITAMINS, THERA 1 EACH TAB ONE (07:51)
[2024-06-01] MEDS ORDERED: clonazePAM 0.5 MG TAB ONE (08:41)
[2024-06-01 08:50] LABS: INR 1.8 (<1.2); Prothrombin Time 18.1 sec (10.0-12.5)
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
[2024-06-01] MEDS ORDERED: WARFARIN 10 MG TAB PO ONE (18:00)
--- NOTE | 2024-07-11 11:52 | PN ---
PROGRESS NOTE DATE OF SERVICE: 05/30/2024 SUBJECTIVE: The patient was seen, the chart was reviewed, and the case was discussed with the nursing staff. The patient reports that he has made good progress. He feels that he had made adequate progress where he could possibly be going home by Saturday. He says that he has had thoughts of wanting to hurt himself and that he is very anxious about going back home. 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 He says that he gets along well with his although at one point he did think that she was having an affair. He says that he is currently more anxious about going back home and maintaining his stability. He says that he plans to follow up with mental health services for further outpatient care. He denies currently any suicidal or homicidal ideations or plan, but mainly focused again on feeling anxious about going home. The patient otherwise does not appear to be in any acute distress, interacts fairly well. Thought process is goal directed, sequential, and logical. There is no evidence of judgment has improved. Insight appears to be partial. DIAGNOSTIC IMPRESSION: 1. Adjustment disorder with mixed emotional features. 2. Major depressive disorder, acute with psychotic features. 3. Relationship problems. 4. Anxiety disorder, unspecified. PLAN: The patient at this time continues to make progress. The patient has tentative discharge date of Saturday morning. Continue supportive care. Continue current medications as prescribed. MMODL / IJN: [id number] /
== END 2024-06-01 13:20 | disposition home or self-care (01) | DRG 885 ==
LOC: 3MHU 02:26 → UNDOADMIN 12:00 → 3MHU 12:00 → UNDODISIN 06-01 13:20
PROVIDERS: ADMIT Psychiatry & Neurology Psychiatry; ATTEND Psychiatry & Neurology Psychiatry
DX: F32.2 Major depressive disorder, single episode, severe without psychotic features (principal); R45.851 Suicidal ideations; F41.9 Anxiety disorder, unspecified; F42.9 Obsessive-compulsive disorder, unspecified; F43.23 Adjustment disorder with mixed anxiety and depressed mood; G47.00 Insomnia, unspecified; Z79.899 Other long term (current) drug therapy
CPT/HCPCS: 80053; 84443; 85025; 85610; 85730; 87636; 93005; 99285

== ENCOUNTER → 2024-08-25 | Outpatient (CLI) | payer BC ==
--- NOTE | 2024-08-25 10:20 | XR ---
EXAMINATION TYPE: XR KUB DATE OF EXAM: 08/25/2024 9:59 AM COMPARISON: 10/31/2022 CLINICAL INDICATION: Male, 64 years old with history of N20.0 Calculus kidney, TECHNIQUE: Single view of the abdomen. FINDINGS: Right renal calculi: Innumerable right-sided renal calculi seen measuring up to 6 mm. Right ureteral calculi: None Visualized. Left renal calculi: Innumerable right-sided renal calculi seen measuring up to 8 mm. Left ureteral calculi: None Visualized. Pelvic calcifications: None Visualized. Bowel gas pattern is unremarkable. No free air. No mass effects. IMPRESSION: 1. Bilateral nephrolithiasis. [facility], , 08/25/2024 10:18 AM
== END | disposition home or self-care (01) ==
LOC: RADXRMAIN 09:48
PROVIDERS: ATTEND Urology
DX: N20.0 Calculus of kidney (principal)
CPT/HCPCS: 74018